=== PATIENT | male | born 1945 | race Caucasian/White ===

== ENCOUNTER 2018-09-07 10:04 | Outpatient (CLI) | payer MEDICARE, OTHER ==
[~2018-09-07] VITALS: Ht 180.3 cm; Wt 154.2 kg
[2018-09-07 10:33] VITALS: BP 155/73
[2018-09-07 11:21] LABS: BASOPHILS % (AUTO) 0 % (0-10); EOSINOPHILS # (AUTO) 0.1 10^3/uL (0.0-0.3); EOSINOPHILS % (AUTO) 2 % (0-10); HEMATOCRIT 39 % (40-54); LYMPHOCYTES # (AUTO) 1.2 X 10^3 (1.0-4.0); LYMPHOCYTES % (AUTO) 18 % (12-44); MEAN CORPUSCULAR HEMOGLOBIN 29 PG (25-34); MEAN CORPUSCULAR HGB CONC 34 G/DL (32-36); MEAN CORPUSCULAR VOLUME 87 FL (80-99); MEAN PLATELET VOLUME 9.2 FL (7.4-10.4); MONOCYTES # (AUTO) 0.6 X 10^3 (0.0-1.0); MONOCYTES % (AUTO) 9 % (0-12); NEUTROPHILS # (AUTO) 4.8 X 10^3 (1.8-7.8); NEUTROPHILS % (AUTO) 72 % (42-75); PLATELET COUNT 234 10^3/uL (130-400); RED CELL DISTRIBUTION WIDTH 14.9 % (10.0-14.5); WHITE BLOOD COUNT 6.7 10^3/uL (4.3-11.0)
[2018-09-07 11:35] LABS: INR 1.1 (0.8-1.4)
[2018-09-07 11:42] LABS: ALANINE AMINOTRANSFERASE 23 U/L (0-55); ALKALINE PHOSPHATASE 68 U/L (40-136); BILIRUBIN,TOTAL 0.5 MG/DL (0.1-1.0); BUN/CREATININE RATIO 15; CALCIUM 10.1 MG/DL (8.5-10.1); CARBON DIOXIDE 25 MMOL/L (21-32); CHLORIDE 105 MMOL/L (98-107); CREATININE SERUM 1.02 MG/DL (0.60-1.30); GFR ESTIMATED > 60; GLUCOSE 128 MG/DL (70-105); POTASSIUM 3.5 MMOL/L (3.6-5.0); SODIUM 141 MMOL/L (135-145); TOTAL PROTEIN 6.9 GM/DL (6.4-8.2)
[2018-09-07 11:55] LABS: BILIRUBIN,URINE NEGATIVE (NEGATIVE); CLARITY,URINE CLEAR; COLOR,URINE AMBER; GLUCOSE, URINE (UA) NEGATIVE (NEGATIVE); KETONES,URINE NEGATIVE (NEGATIVE); LEUKOCYTE ESTERASE ,URINE 1+ (NEGATIVE); NITRITE,URINE NEGATIVE (NEGATIVE); PH,URINE 6 (5-9); PROTEIN,URINE 2+ (NEGATIVE); UROBILINOGEN,URINE NORMAL (NORMAL)
--- NOTE | 2018-09-07 11:56 | Diagnostic Imaging Report ---
INDICATION: Preop for left knee arthroplasty. Time of exam 11:17 a.m. COMPARISON: No prior studies are available for comparison. FINDINGS: The heart size is normal. The pulmonary vascularity is unremarkable. The lungs are clear. No infiltrate, effusion or pneumothorax is detected. IMPRESSION: No acute cardiopulmonary process is detected. Dictated by: Dictated on workstation # [id number]
[2018-09-07 12:05] LABS: BACTERIA,URINE TRACE /HPF; CALCIUM OXALATE CRYSTALS,UR RARE /LPF; RBC,URINE 25-50 /HPF
[2018-09-07 12:18] LABS: ERYTHROCYTE SEDIMENTATION RATE 32 MM/HR (0-30)
[2018-09-07] MEDS ORDERED: LEVO50TA6 PO (14:43)
[2018-09-07] MEDS ORDERED: OMG1KC PO (14:43)
[2018-09-07] MEDS ORDERED: LOSA1TAB23 PO (14:43)
[2018-09-07] MEDS ORDERED: ASPI-983 PO (14:43)
[2018-09-07] MEDS ORDERED: OXYC-471 PO (14:43)
[2018-09-07] MEDS ORDERED: MULT-166 PO (14:43)
[2018-09-07] MEDS ORDERED: TRIA15CR TP (14:43)
[2018-09-07] MEDS ORDERED: TIOT18CA2 IH (14:43)
[2018-09-07] MEDS ORDERED: MENT71OI TP (14:43)
[2018-09-07] MEDS ORDERED: UBID100C17 PO (14:43)
[2018-09-07] MEDS ORDERED: TAMS0.4C98 PO (14:43)
[2018-09-07] MEDS ORDERED: NITR0.4T39 SL (14:43)
[2018-09-07] MEDS ORDERED: FLUT1DIS26 INH (14:43)
[2018-09-07] MEDS ORDERED: MONT10TA24 PO (14:43)
[2018-09-07] MEDS ORDERED: RT-ALBUINH INH (14:43)
[2018-09-07] MEDS ORDERED: CHOL400C9 PO (14:43)
[2018-09-07] MEDS ORDERED: DILT180C82 PO (14:43)
[2018-09-07] MEDS ORDERED: FURO20TA4 PO (14:43)
[2018-09-08] MEDS ORDERED: RT-ALBUINH IH (14:15)
[2018-09-08] MEDS ORDERED: UBID200C16 PO (14:15)
== END 2018-09-07 11:30 | disposition home or self-care (01) ==
LOC: PREOP 10:04
PROVIDERS: ATTEND Orthopaedic Surgery
DX: Z01.811 Encounter for preprocedural respiratory examination (principal); Z01.812 Encounter for preprocedural laboratory examination; Z11.2 Encounter for screening for other bacterial diseases; M17.12 Unilateral primary osteoarthritis, left knee; R53.83 Other fatigue; R82.90 Unspecified abnormal findings in urine
CPT/HCPCS: 36415; 71046; 80053; 81000; 85025; 85610; 85652; 86850; 86900; 86901; 87081; 87088

== ENCOUNTER 2018-09-14 06:05 | Inpatient (IN) | payer MEDICARE, OTHER ==
--- NOTE | 2018-09-08 14:49 | NUR ---
NURSE ENTERED MEDS IN PREOP, I CALLED [facility] AND GOT A LIST OF RECENTLY FILLED MEDICATIONS TO COMPARE. [facility] FILLED: 08-23-18 DILTIAZEM ER 180MG 2 DAILY #180 08-10-18 MONTELUKAST 10MG DAILY #60 08-02-18 TAMSULOSIN 0.4MG HS #90 08-02-18 LISINOPRIL HCTZ 20-12.5MG 2 DAILY #180 (NO LONGER TAKING, CHANGED TO LOSARTAN HCT) 07-20-18 FUROSEMIDE 20MG DAILY PRN #90 07-15-18 LEVOTHYROXINE 50MCG DAILY #90 06-24-18 TRIAMCINOLONE CREAM 0.5% AAA TID PRN 06-20-18 ADVAIR 250-50 BID #3 11-07-17 SPIRIVA HANDIHALER #3 DAILY (STATES HE SOMETIMES GETS SAMPLES) [facility] FILLED: 08-16-18 PROAIR INHALER PRN 08-16-18 LOSARTAN HCTZ 100-25 DAILY #30 OTC MEDS REPORTED: ASPIRIN 81MG DAILY VITAMIN D 400 2 DAILY CALMOSEPTINE PRN MTV DAILY FISH OIL 4 DAILY CO Q 10 200MG DAILY ALSO REPORTED WAS NITROGLYCERIN PRN.
--- NOTE | 2018-09-09 04:30 | HISTORY AND PHYSICAL ---
DATE OF SERVICE: 09/14/2018 ADMISSION HISTORY AND PHYSICAL DATE OF SURGERY: 09/14/2018 DATE OF ADMISSION: 09/14/2018 for left total knee arthroplasty. The patient will require regular inpatient admissions due to gait abnormalities, weakness, pain management issues and comorbidities. HISTORY OF PRESENT ILLNESS: The patient is a 73-year-old gentleman with progressively worsening left knee pain. He has known osteoarthritis of his knee. with injections with steroid and viscosupplementation, but reports progressive worsening pain. Due to functional impairment and failure to improve with conservative measures, the patient elected to proceed with surgical intervention. REVIEW OF SYSTEMS: No chest pain, no shortness of breath. No dysuria. Radiographs reveal severe medial and patellofemoral arthrosis. PAST MEDICAL HISTORY: Significant for fatigue, dizziness, osteoarthritis, venous insufficiency, cellulitis, back pain, morbid obesity and COPD, hypothyroidism, reflux. PAST SURGICAL HISTORY: Carpal tunnel release, coronary stent placement, right index finger, right knee arthroscopy, adenoidectomy, tonsillectomy. FAMILY HISTORY: Significant for cardiovascular disease and asthma. PRIMARY CARE PROVIDER: Dr. Disla in [place], [place]. MEDICATIONS: Diltiazem, fish oil, lisinopril, levothyroxine, furosemide, Calmoseptine, Ventolin, multivitamin, Nitrostat, Advair, Spiriva, triamcinolone, aspirin, losartan. ALLERGIES: CRESTOR. SOCIAL HISTORY: The patient drinks beer socially. He is a former smoker with a [id number] history. PHYSICAL EXAMINATION: GENERAL: The patient is well developed, well-nourished, in no acute distress. HEENT: Normocephalic, atraumatic. Pupils are equal, round and reactive to light. Oropharynx is clear. NECK: Supple, no lymphadenopathy. LUNGS: Clear to auscultation bilaterally. HEART: Regular rate and rhythm. ABDOMEN: Soft, nontender, nondistended. EXTREMITIES: The left knee demonstrates varus alignment. Ambulates with an antalgic gait. He has a slight effusion. There is no warmth or erythema. Range of motion is 0/0/100. He is tender along the medial joint lines and pain with Feliciano's. Varus alignment is noted. IMPRESSION: Severe left knee osteoarthritis, unresponsive to conservative measures. PLAN: Left total knee arthroplasty. The risks, benefits, options, ramifications and recovery were discussed at length with the patient. He understands and wishes to proceed. Job ID: [id number] DocumentID: [id number] Dictated Date: 09/05/2018 11:24:07 Rehab Therapist Date: 09/05/2018 12:34:39 Dictated By: SAY WALSH MD
[~2018-09-14] VITALS: Ht 180.3 cm; Wt 152.4 kg
[~2018-09-14 06:05] MED LIST: ASPI-983 PO; CHOL400C9 PO; DILT180C82 PO; FLUT1DIS26 INH; FURO20TA4 PO; LEVO50TA6 PO; LOSA1TAB23 PO; MENT71OI TP; MONT10TA24 PO; MULT-166 PO; NITR0.4T39 SL; OMG1KC PO; OXYC-471 PO; RT-ALBUINH IH; RT-ALBUINH INH; TAMS0.4C98 PO; TIOT18CA2 IH; TRIA15CR TP; UBID100C17 PO; UBID200C16 PO
[2018-09-14] MEDS ORDERED: CEFUROXIME INJECTION 1,500 MG in WATER (STERILE) FOR INJECTION 15 ML IV ONE (06:15)
[2018-09-14 06:27] VITALS: BP 169/87
[2018-09-14] MEDS: LACTATED RINGERS 1,000 ML IV PRN ×2 (06:27→08:37)
[2018-09-14] MEDS ORDERED: CEFUROXIME 1.5 GM (ZINACEF) VIAL ONE (06:35)
[2018-09-14] MEDS ORDERED: WATER (STERILE) FOR INJECTION 20 ML ONE (06:35)
[2018-09-14] MEDS ORDERED: CATHETER FLUSH 10 ML SYR IV PRN (06:45)
[2018-09-14] MEDS ORDERED: ROCURONIUM 10 MG/ML 5 ML SYRINGE IV ONE (06:58)
[2018-09-14] MEDS ORDERED: fentaNYL INJECTION 100 MCG/2 ML AMP ONE ×2 (06:58→08:06)
[2018-09-14] MEDS ORDERED: proPOfol 200 MG/20 ML (DIPRIVAN) VIAL IV ONE (06:58)
[2018-09-14] MEDS ORDERED: ONDANSETRON 4 MG/2 ML (SDV) Z0FRAN ONE (06:58)
[2018-09-14] MEDS ORDERED: LIDOCAINE PF 2% 5 ML (XYLOCAINE) VIAL ONE (06:58)
[2018-09-14] MEDS ORDERED: MIDAZOLAM 2 MG/2 ML (VERSED) VIAL ONE (06:59)
[2018-09-14] MEDS ORDERED: BUPIVACAINE 0.25% 30 ML (SENSORCAINE) VIAL ONE (07:19)
[2018-09-14 07:20] VITALS: BP 169/87
[2018-09-14] MEDS ORDERED: SEVOFLURANE (ULTANE) 15 ML INHAL SOLN ONE ×8 (07:21→09:22)
--- NOTE | 2018-09-14 07:25 | Progress Note-Pre Operative ---
Pre-Operative Progress Note H&P Reviewed The H&P was reviewed, patient examined and no changes noted. Date Seen by Provider: Sep 14, 2018 Time Seen by Provider: 07:15 Date H&P Reviewed: Sep 14, 2018 Time H&P Reviewed: 07:11 Pre-Operative Diagnosis: left knee primary osteoarthritis SAY WALSH MD Sep 14, 2018 07:25
--- NOTE | 2018-09-14 07:26 | Progress Note-Post Operative ---
Post-Operative Progess Note Surgeon (s)/Senior Industrial Engineer (s) Surgeon SAY WALSH MD Senior Industrial Engineer: Ritesh Arshad Pre-Operative Diagnosis left knee primary osteoarthritis Post-Operative Diagnosis left knee primary osteoarthritis Procedure & Operative Findings Date of Procedure 09/14/18 Procedure Performed/Findings left total knee arthroplasty Anesthesia Type GETA Estimated Blood Loss Estimated blood loss (mL): minimal Specimens/Packing Specimens Removed none Packing: none SAY WALSH MD Sep 14, 2018 07:25
[2018-09-14] MEDS ORDERED: OXYC1TAB87 PO (07:27)
--- NOTE | 2018-09-14 07:29 | D/C HH Face to Face Order ---
D/C Face to Face Orders Instructions for Patient Via [facility], Patient Instructions/FollowUp: three weeks Physician to follow Patient: three weeks Discharge Diet for Home: Regular Diet Patient Data-Allergies,Ht & Wt Patient Allergies: Coded Allergies: Yzuronv-Uia-Aul Reductase Inhibitor (Verified Allergy, Unknown, JOINT AND MUSCLE PAIN, 09/07/18) Height (Feet): 5 Height (Inches): 11.00 Weight (Pounds): 336 Weight (Ounces): 0.0 Home Health Need/Face to Face Date of Face to Face: Sep 14, 2018 Clinical Findings: Instability, Muscle weakness, Pain with ambulation, Unsteady gait I have seen Pt [id number]: Yes Discharged To: Home Diagnosis/Conditions: left total knee arthroplasty Patient is Homebound due to: Brigitte fall risk due to instabilty, Muscle weakness , Pain w/ambulation Homebound Status Due to the above stated illness, injury or surgical procedure (medical condition or diagnosis) and associated clinical findings, the patient is homebound because of his/her inability to leave home except with aid of a supportive device and/or person AND leaving the home requires a considerable and taxing effort or is medically contraindicated. Pt req the following assistanc: [facility] Nursing Orders Home Health Services Order: Physical Therapy-Evaluate & Treat DC left knee pilo and apply steri strips 09/28/18 Home Health Infusion Therapy Line Start Date: Sep 14, 2018 Line Start Time: 626 Line Type: Peripheral IV Site Location: Antecubital Therapy Orders Therapy Orders: Physical Therapy, PT to assess for OT Therapy Specific Orders: Eval assistive deivces, Teach enviro modifications/ safety, Gait training, Increase strength/endurance, Provider maintenance therapy , Restore ROM Certify Stmt I certify that this patient is under my care and that I, a nurse practitioner or a physician; a administrative assistant office manager working with me, had a face to face encounter that - meets the physician face to face encounter requirements with this patient as dated. SAY WALSH MD Sep 14, 2018 07:29
[2018-09-14] MEDS ORDERED: diphenhydrAMINE 50 MG/ML INJ (BENADRYL) IVP PRN (07:30)
[2018-09-14] MEDS ORDERED: morphine PCA 100 MG/100 ML BAG IV PRN (07:30)
[2018-09-14] MEDS ORDERED: ONDANSETRON 4 MG/2 ML (SDV) Z0FRAN IVP PRN ×2 (07:30→09:30)
[2018-09-14] MEDS ORDERED: ACETAMINOPHEN 325 MG TABLET PO PRN (07:30)
[2018-09-14] MEDS ORDERED: INTRA-ARTICULAR IU ONE ×5 (07:45)
[2018-09-14] MEDS ORDERED: TRANEXAMIC ACID 100 MG/ML 10 ML INJECTION IV ONE (08:02)
[2018-09-14] MEDS ORDERED: DEXAMETHASONE 10 MG/ML (DECADRON) 1 ML VIAL ONE (08:38)
[2018-09-14] MEDS ORDERED: NEOSTIGMINE 1 MG/ML 5 ML SYRINGE ONE (09:05)
[2018-09-14] MEDS ORDERED: GLYCOPYRROLATE 0.2 MG/ML (ROBINUL) 2 ML VIAL ONE (09:05)
[2018-09-14] MEDS ORDERED: morphine INJ 10 MG/ML 1ML (SYR OR VIAL) IVP ONE (09:30)
[2018-09-14] MEDS ORDERED: HYDROmorphone 2 MG/ML VIAL (DILAUDID) IV ONE (09:30)
[2018-09-14] MEDS ORDERED: PROMETHAZINE INJ 25 MG/ML (PHENERGAN) AMP IVP ONE (09:30)
[2018-09-14] MEDS ORDERED: MEPERIDINE (DEMEROL) INJ 50 MG/ML IVP ONE (09:30)
[2018-09-14] MEDS ORDERED: morphine INJ 10 MG/ML 1ML (SYR OR VIAL) ONE (09:46)
--- NOTE | 2018-09-14 10:25 | NUR ---
REC'D PER BED FROM PAR. SEE ASSESSMENT.
[2018-09-14 10:50] VITALS: BP 109/60
[2018-09-14] MEDS: SENNA W/DOCUSATE (SENOKOT S) TABLET PO SCH ×2 (11:24→20:31)
[2018-09-14] MEDS: NS IV 1000 ML 1,000 ML IV SCH ×3 (11:25→23:56)
[2018-09-14 12:00] VITALS: BP 144/75
--- NOTE | 2018-09-14 12:30 | OPERATIVE REPORT ---
DATE OF SERVICE: 09/14/2018 PREOPERATIVE DIAGNOSIS: Left knee primary osteoarthritis. POSTOPERATIVE DIAGNOSIS: Left knee primary osteoarthritis. PROCEDURE: Left total knee arthroplasty. SURGEON: Kalin Slater MD. LEGAL NURSE CONSULTANT: Ritesh Arshad, who assisted throughout the procedure, helped with positioning and retraction and closing the incision. ANESTHESIA: General endotracheal by Brian Narayanan CRNA. TOURNIQUET TIME: Approximately 70 minutes at 300 mmHg. ESTIMATED BLOOD LOSS: Minimal. DRAINS: None. COMPLICATIONS: None. POSTOPERATIVE PLAN: Routine protocol. The patient was transferred to recovery room in awake and in stable condition. MATERIALS: MicroPort cemented size 6 femur, cemented 6+ tibia with a 10 mm insert and cemented 35 patellar button. STATEMENT OF MEDICAL NECESSITY: The patient is a 73-year-old gentleman with complaints of progressively worsening left knee pain. Radiographs revealed severe medial and patellofemoral arthrosis. He has undergone treatment with injections, anti-inflammatories and rest without relief. Due to functional impairment and failure to improve with conservative measures, the patient elected to proceed with surgical intervention. DESCRIPTION OF PROCEDURE: After risks and benefits of procedure were discussed and questions were answered and informed consent was signed and placed on the chart. The operative site was confirmed in the preoperative holding area initialed by the surgeon. The patient was then transferred to the operating room and after adequate levels of general endotracheal anesthetic were obtained, a timeout was called confirming the operative site. The left lower extremity was prepped and draped in the usual sterile fashion with the leg elevated. The tourniquet was inflated to 300 mmHg. Standard anterior approach was utilized. Hemostasis was obtained with cautery. A medial parapatellar arthrotomy was performed leaving 1 cm cuff on the patella for later reattachment. A portion of the fat pad was resected and subperiosteal release was performed of the proximal medial tibia being careful to stay on the bony surface. The ACL was resected. An intramedullary guide was passed into the femur and the distal cutting block was placed. The distal cut was made. The femur sized to a size 6. The 6 cutting block was placed parallel to the epicondylar axis and cuts were made from posterior to anterior. Subperiosteal release was then carefully performed of the posterior distal femur, being careful to stay on the bony surface. Intramedullary guide was then passed into the tibia. The cutting block was placed. The drop marshal transected the intermalleolar axis and the cut was made. The baseplate was placed and the drop marshal transected the intermalleolar axis was felt to be in excellent position. This was then prepared with a drill and keel punch. The femoral trial was placed and the trochlear cut was made. The patella was then prepared by using the freehand technique and resecting 10 mm off the undersurface. The peg guide was placed and the peg holes were drilled. The trials were inserted. Full extension was easily obtained, 120 degrees of flexion with gravity was easily obtained. There was no anterior/posterior or medial/lateral laxity in flexion or extension. Patella tracked well. The trials were removed. The joint was irrigated with pulse lavage. The periarticular block was placed in the posterior capsule, medial and lateral retinaculum extensor mechanism and subcutaneous tissues. The bone ends were irrigated and dried and the tibial baseplate was cemented into position. Excessive cement was removed. The superior surface was irrigated and dried and the polyethylene insert was placed. The distal femur was irrigated and dried and the femoral prosthesis was cemented into position. Excess cement was removed. The knee was brought into full extension until the cement had cured. The undersurface of the patella was irrigated and dried. The patellar button was cemented in position. Excess cement was removed. The knee was held in full extension until the cement had cured. Once the cement had cured, the knee was taken through range of motion, full extension was easily obtained. The patella tracked well. There was 120 degrees of flexion with gravity easily. There was no anterior/posterior or medial/lateral laxity in flexion or extension. The joint was further irrigated with pulse lavage. The arthrotomy was closed with #2 [place] in huyiwy-gc-yotco interrupted fashion. The knee was flexed. The patella tracked well with no undue tension at the repair site. The subcutaneous tissues were irrigated with pulse lavage using a total of 6 liters throughout the procedure. A 0 Vicryl was used in the deep subcutaneous tissue, 2-0 Vicryl for the superficial subcutaneous tissue, pilo used on the skin. A soft dressing was applied. The tourniquet was deflated. The patient was transferred to the recovery room in awake and stable condition. Job ID: [id number] DocumentID: [id number] Dictated Date: 09/14/2018 09:26:20 [place]erry Master Date: 09/14/2018 12:29:39 Dictated By: KALIN SLATER MD
--- NOTE | 2018-09-14 13:03 | Progress Note-Standard ---
Standard Progress Note Progress Notes/Assess & Plan Date Seen by a Provider: Sep 14, 2018 Time Seen by a Provider: 13:01 Progress/Assessment & Plan post op check No complaints radiographs--HW well positioned without fracture LLE--brisk cap refill. 1 plus DP pulse. Sensation intact throughout. intact DF and PF of toes and ankle s/p LTKA mobilize as able SAY WASLH MD Sep 14, 2018 13:03
--- NOTE | 2018-09-14 14:21 | Physical Therapy Evaluation ---
PT Evaluation-General Medical Diagnosis Admission Date Sep 14, 2018 at 06:05 Medical Diagnosis: left TKA Onset Date: Sep 14, 2018 Therapy Diagnosis Therapy Diagnosis: impaired mobility, strength, endurance, ROM Height/Weight Height (Feet): 5 Height (Inches): 11.00 Weight (Pounds): 336 Weight (Ounces): 0.0 Precautions Precautions/Isolations: Standard Precautions Weight Bear Status Left Lower Extremity: Left Weight Bearing/Tolerated Referral Physician: Ritesh Arshad APRN Reason for Referral: Evaluation/Treatment Medical History Additional Medical History PAST MEDICAL HISTORY: Significant for fatigue, dizziness, osteoarthritis, venous insufficiency, cellulitis, back pain, morbid obesity and COPD, hypothyroidism, reflux. PAST SURGICAL HISTORY: Carpal tunnel release, coronary stent placement, right index finger, right knee arthroscopy, adenoidectomy, tonsillectomy. Reviewed History: Yes Social History Home: Single Level Current Living Status: Spouse Entry Into Home: Stairs With Railing PT Steps Into Home: 3 Prior/Core FIM Prior Level of Function Therapy Code Descriptions/Definitions Functional [place] Measure: 0=Not Assessed/NA 4=Minimal Assistance 1=Total Assistance 5=Supervision or Setup 2=Maximal Assistance 6=Modified [place] 3=Moderate Assistance 7=Complete [place] Therapy Quality Codes: 6 Independent with activity with or without an assistive device 5 Patient requires set up or clean up by helper. Patient completes activity by themselves 4 Supervision or touching assist (CGA). [place] provide cues , steadying assist 3 The helper provides less than half the effort to complete the activity 2 The helper provides more than half the effort to complete the activity 1 Dependent. The helper does all the effort to complete an activity 7 Patient refused to complete or attempt activity 9 The patient did not perform the activity before the current illness or injury 88 Not attempted due to Medical conditions or safety concerns Functional Abilities and Goals: Independent: Patient completed the activities by him/herself, with or without an assistive device, with no assistance from a helper. Needed Some Help: Patient needed partial assistance from another person to complete activities. Dependent: A helper completed the activities for the patient. Unknown: Not Applicable: Bed Mobility: 7 Transfers (B,C,W/C) (FIM): 7 Gait: 7 Stairs: 7 Indoor Mobility (Ambulation): Independent Stairs: Independent Patient states that he was using a SPC occasionally but stopped before surgery. PT Evaluation-Current Subjective Patient in bed pre tx, agrees to PT, has little to no pain at rest. Pt/Family Goals to be independent at home Objective Patient Orientation: Person, Place, Situation Attachments: SCD's, Oxygen, Polar Pack, IV ROM/Strength ROM Lower Extremities left knee extension +5, flexion 70 degrees Strength Lower Extremities NT Neuromuscular (Tone, Coordination, Reflexes) NT Sensory Vision: Wears Glasses Hearing: Functional Sensation Right Lower Extremit: Intact Sensation Left Lower Extremity: Intact Transfers Therapy Code Descriptions/Definitions Functional [place] Measure: 0=Not Assessed/NA 4=Minimal Assistance 1=Total Assistance 5=Supervision or Setup 2=Maximal Assistance 6=Modified [place] 3=Moderate Assistance 7=Complete [place] Transfers (B, C, W/C) (FIM): 4 Scootin Rollin Supine to/from Sit: 4 Sit to/from Stand: 4 Patient needed min assist for supine <-> sit and CGA for sit to stand. No complaints of dizziness. Cues for hand placement and safety. Gait Mode of Locomotion: Walk Anticipated Mode of Locomotion: Walk Gait (FIM): 1 Distance: 4' Gait Level of Assist: 4 Gait Persons Needed: 1 Gait Assistive Device: FWW Comments/Gait Description Patient ambulated a couple of feet forward and then back and then a couple of feet toward the head of the bed. Gait is antalgic, slow, wide ANAHI, decreased weight bearing on the left side. Balance Sitting Static: Normal Sitting Dynamic: Normal Standing Static: Fair Standing Dynamic: Fair Treatment Supine total knee protocol x10 (AP, QS, HS, SAQ, SLR) Assessment/Needs Patient has impaired mobility, strength, endurance, ROM post left TKA. CPM donned and adjusted to patient's leg and set to 50/-2, polar care on, nurse call and phone, in reach, all needs met. Rehab Potential: Fair PT Short Term Goals Short Term Goals Time Frame: Sep 21, 2018 Transfers (B,C,W/C) (FIM): 5 Gait (FIM): 2 Gait Distance Comment: 50' Gait Level of Assist: 5 Gait Assistive Device: FWW PT Plan Problem List Problem List: Activity Tolerance, Functional Strength, Safety, Balance, Gait, Transfer, Bed Mobility, ROM Treatment/Plan Treatment Plan: Continue Plan of Care Treatment Plan: Bed Mobility, Education, Functional Activity Mia, Functional Strength, Gait, Safety, Therapeutic Exercise, Transfers Treatment Duration: Sep 21, 2018 Frequency: 11 times per week Estimated Hrs Per Day: .25 hour per day (15-30') Patient and/or Family Agrees t: Yes Safety Risks/Education Patient Education: Gait Training, Transfer Techniques, Reviewed Use of Ice, Correct Positioning, Safety Issues Teaching Recipient: Patient Teaching Methods: Demonstration, Discussion Response to Teaching: Reinforcement Needed Discharge Recommendations Plan Patient will perform bed mobility and transfer training, balance and endurance training, functional strengthening, stair training, gait training, and education , to improve functional mobility and independence at home. Therapy D/C Recommendations: Home w/ Family Support Time/GCodes Time In: 1340 Time Out: 1410 Total Billed Treatment Time: 30 Total Billed Treatment 1 visit ZOE 15' FA 15' LIZZ JAVIER PT Sep 14, 2018 14:21
--- NOTE | 2018-09-14 15:35 | Diagnostic Imaging Report ---
INDICATION: Postop left knee replacement. AP and lateral views of the left knee are obtained at 09:51 a.m. Left knee prosthesis appears in good alignment. There is no sign of device loosening. There is no unexpected foreign body post surgery. IMPRESSION: Well-aligned left knee prosthesis with no unexpected foreign body. Dictated by: Dictated on workstation # [id number]
[2018-09-14] MEDS: CEFUROXIME INJECTION 750 MG in WATER (STERILE) FOR INJECTION 10 ML IV SCH ×2 (15:39→23:56)
[2018-09-14 16:05] VITALS: BP 145/62
--- NOTE | 2018-09-14 18:18 | NUR ---
NO VOID SINCE OR. BLADDER SCAN DONE. 725 CC. WILL STAND AT BEDSIDE TO SEE IF HE CAN VOID.
--- NOTE | 2018-09-14 18:33 | NUR ---
VOIDED 100CC. MESSAGE TO MILAN GUNDERSON TO SEE IF HE WANTS DRAKE INSERTED AT THIS TIME.
[2018-09-14 20:55] VITALS: BP 154/68
--- NOTE | 2018-09-14 22:15 | NUR ---
PT ONLY ABLE TO VOID 50 CC. BLADDER SCAN 750. PT STRAIGHT CATH. 850ML OF CLEAR YELLOW URINE. PT TOLERATED WELL.
[2018-09-15] VITALS: BP 153/68
[2018-09-15 04:00] VITALS: BP 146/81
[2018-09-15 05:33] LABS: HEMOGLOBIN 11.4 G/DL (13.3-17.7)
[2018-09-15] MEDS: MULTIVIT W/MINERALS TAB (THERAGRAN M) PO SCH (06:07)
[2018-09-15] MEDS: ENOXAPARIN 30 MG/0.3 ML (LOVENOX) SYR SC SCH ×2 (06:07→18:33)
--- NOTE | 2018-09-15 07:58 | Progress Note-Standard ---
Standard Progress Note Progress Notes/Assess & Plan Date Seen by a Provider: Sep 15, 2018 Time Seen by a Provider: 07:57 Progress/Assessment & Plan post op check No complaints radiographs--HW well positioned without fracture LLE--brisk cap refill. 1 plus DP pulse. Sensation intact throughout. intact DF and PF of toes and ankle s/p LTKA mobilize as able Final Diagnosis no complaints Vital Signs Date Time Temp Pulse Resp B/P (MAP) Pulse Ox O2 Delivery O2 Flow Rate FiO2 09/15/18 07:38 95 Room Air 09/15/18 04:00 98.0 84 18 146/81 (102) 95 Room Air 09/15/18 01:45 94 Room Air 09/15/18 00:00 98.0 78 18 153/68 (96) 98 Room Air 09/14/18 22:29 98 Room Air 09/14/18 21:00 20 09/14/18 20:56 Room Air 09/14/18 20:55 99.2 93 20 154/68 (96) 96 Room Air 09/14/18 19:19 94 Room Air 09/14/18 16:05 99.3 86 20 145/62 (89) 97 Nasal Cannula 3.00 09/14/18 12:00 98.6 80 20 144/75 (98) 96 Room Air 09/14/18 11:05 94 Nasal Cannula 3.00 09/14/18 10:50 97.1 64 20 109/60 (76) 95 Room Air 09/14/18 10:25 96 Nasal Cannula 3.00 09/14/18 10:20 14 94 OxyMask 3 09/14/18 10:10 15 96 OxyMask 3 09/14/18 10:00 16 96 OxyMask 6 09/14/18 09:50 14 96 OxyMask 10 09/14/18 09:40 20 96 OxyMask 10 09/14/18 09:30 16 96 OxyMask 10 09/14/18 09:24 20 97 OxyMask 10 I & O 09/15/18 07:00 Intake Total 2775 ml Output Total 1000 ml Balance 1775 ml Laboratory Tests Test 09/15/18 05:15 Range/Units Hemoglobin 11.4 L 13.3-17.7 G/DL Hematocrit 36 L 40-54 % LLE--dressing intact. NVI distally. No calf tenderness s/p LTKA doing well PT/OT SAY WALSH MD Sep 15, 2018 07:58
[2018-09-15 08:00] VITALS: BP 186/73
[2018-09-15] MEDS: SENNA W/DOCUSATE (SENOKOT S) TABLET PO SCH ×2 (08:15→20:12)
[2018-09-15] MEDS: ASPIRIN E.C. 81 MG (ECOTRIN) TAB PO SCH ×2 (08:15→10:32)
[2018-09-15] MEDS: oxyCODONE/APAP 5/325MG (PERCOCET 5) TABLET PO PRN ×4 (09:30→23:13)
--- NOTE | 2018-09-15 10:15 | Physical Therapy Daily Note ---
PT Daily Note-Current Subjective Patient agrees to PT. Pain Numeric Pain Scale: 5-Moderate Pain Location: Left Location Body Site: Knee Pain Description: Acute Mental Status Patient Orientation: Normal For Age Attachments: IV Transfers Therapy Code Descriptions/Definitions Functional [place] Measure: 0=Not Assessed/NA 4=Minimal Assistance 1=Total Assistance 5=Supervision or Setup 2=Maximal Assistance 6=Modified [place] 3=Moderate Assistance 7=Complete [place] Therapy Quality Codes: 6 Independent with activity with or without an assistive device 5 Patient requires set up or clean up by helper. Patient completes activity by themselves 4 Supervision or touching assist (CGA). [place] provide cues , steadying assist 3 The helper provides less than half the effort to complete the activity 2 The helper provides more than half the effort to complete the activity 1 Dependent. The helper does all the effort to complete an activity 7 Patient refused to complete or attempt activity 9 The patient did not perform the activity before the current illness or injury 88 Not attempted due to Medical conditions or safety concerns Transfers (B, C, W/C) (FIM): 6 Scootin Supine to/from Sit: 6 Sit to/from Stand: 6 Bed to/from Chair: 6 Weight Bearing Left Lower Extremity: Left Weight Bearing/Tolerated Gait Training Gait (FIM): 6 Distance (FIM): 3=150 ft Distance: 300' Gait Level of Assist: 6 Gait Assistive Device: FWW reciprocal pattern/slightly antalgic Exercises Supine Ex: Ankle pumps, Quad Set, Heel Slides, Straight leg raise Supine Reps: 15 Seated Therapy Exercises: Long arc quads Seated Reps: 15 Assessment Patient tolerated treatment well and is up in recliner with needs met. PT Short Term Goals Short Term Goals Time Frame: Sep 21, 2018 Transfers (B,C,W/C) (FIM): 5 Gait (FIM): 2 Gait Distance Comment: 50' Gait Level of Assist: 5 Gait Assistive Device: FWW PT Plan Treatment/Plan Treatment Plan: Continue Plan of Care Treatment Plan: Bed Mobility, Education, Functional Activity Mia, Functional Strength, Gait, Safety, Therapeutic Exercise, Transfers Treatment Duration: Sep 21, 2018 Frequency: 11 times per week Estimated Hrs Per Day: .25 hour per day (15-30') Patient and/or Family Agrees t: Yes Time/GCodes Time In: 925 Time Out: 944 Total Billed Treatment Time: 19 Total Billed Treatment 1 visit FA 19 min MARKY,FABI PT Sep 15, 2018 10:15
[2018-09-15 12:00] VITALS: BP 155/68
[2018-09-15] MEDS: NS IV 1000 ML 1,000 ML IV SCH (12:18)
--- NOTE | 2018-09-15 14:18 | Anesthesia-General Post-Op ---
General Patient Condition Mental Status/LOC: Same as Preop Cardiovascular: Satisfactory Nausea/Vomiting: Absent Respiratory: Satisfactory Pain: Controlled Complications: Absent Post Op Complications Complications None Follow Up Care/Instructions Patient Instructions None needed. Anesthesia/Patient Condition Patient Condition Patient is doing well, no complaints, stable vital signs, no apparent adverse anesthesia problems. No complications reported per nursing. JIMENEZ JIMENES CRNA Sep 15, 2018 14:17
--- NOTE | 2018-09-15 14:59 | Physical Therapy Daily Note ---
PT Daily Note-Current Subjective Patient agrees to PT. No c/o Pain Numeric Pain Scale: 5-Moderate Pain Location: Left Location Body Site: Knee Pain Description: Acute Mental Status Patient Orientation: Normal For Age Attachments: IV Transfers Therapy Code Descriptions/Definitions Functional [place] Measure: 0=Not Assessed/NA 4=Minimal Assistance 1=Total Assistance 5=Supervision or Setup 2=Maximal Assistance 6=Modified [place] 3=Moderate Assistance 7=Complete [place] Therapy Quality Codes: 6 Independent with activity with or without an assistive device 5 Patient requires set up or clean up by helper. Patient completes activity by themselves 4 Supervision or touching assist (CGA). [place] provide cues , steadying assist 3 The helper provides less than half the effort to complete the activity 2 The helper provides more than half the effort to complete the activity 1 Dependent. The helper does all the effort to complete an activity 7 Patient refused to complete or attempt activity 9 The patient did not perform the activity before the current illness or injury 88 Not attempted due to Medical conditions or safety concerns Transfers (B, C, W/C) (FIM): 6 Scootin Supine to/from Sit: 6 Sit to/from Stand: 6 Weight Bearing Left Lower Extremity: Left Weight Bearing/Tolerated Gait Training Gait (FIM): 6 Distance (FIM): 3=150 ft Distance: 375' Gait Level of Assist: 6 Gait Assistive Device: FWW reciprocal pattern/slightly antalgic Exercises Supine Ex: Ankle pumps, Quad Set, Heel Slides, Straight leg raise Supine Reps: 15 (AROM left LE) Assessment CPM 0-[address] with polar pack. Patient progressing with treatment plan and will dismiss to home tomorrow. PT Short Term Goals Short Term Goals Time Frame: Sep 21, 2018 Transfers (B,C,W/C) (FIM): 5 Gait (FIM): 2 Gait Distance Comment: 50' Gait Level of Assist: 5 Gait Assistive Device: FWW PT Plan Treatment/Plan Treatment Plan: Continue Plan of Care Treatment Plan: Bed Mobility, Education, Functional Activity Mia, Functional Strength, Gait, Safety, Therapeutic Exercise, Transfers Treatment Duration: Sep 21, 2018 Frequency: 11 times per week Estimated Hrs Per Day: .25 hour per day (15-30') Patient and/or Family Agrees t: Yes Time/GCodes Time In: 1355 Time Out: 1420 Total Billed Treatment Time: 25 Total Billed Treatment 1 visit GT 17 min EX 8 min FABI NEGRO PT Sep 15, 2018 14:58
--- NOTE | 2018-09-15 15:13 | NUR ---
CM/SS responded to consult. Patient will need a Bariatric FWW at discharge and HHC. Patient preference would be for [facility]. Referral sent to [place] and they will look it over and let this copy writer know. When order for FWW in then will use [facility] and have FWW delivered to the patient room.
[2018-09-15] MEDS ORDERED: FUROSEMIDE 20 MG (LASIX) TAB PO PRN (15:15)
--- NOTE | 2018-09-15 15:23 | Occupational Therapy Eval ---
OT Evaluation-General/PLF Medical Diagnosis Admission Date Sep 14, 2018 at 06:05 Medical Diagnosis: left TKA Onset Date: Sep 14, 2018 Therapy Diagnosis Therapy Diagnosis: weakness Height/Weight Height (Feet): 5 Height (Inches): 11.00 Weight (Pounds): 336 Weight (Ounces): 0.0 Precautions Precautions/Isolations: Fall Prevention, Standard Precautions Safety Interventions: None Weight Bear Status Weight Bearing Restriction: Weight Bearing/Tolerated Location Restriction: L LE Left LE WBAT Referral Physician: Ritesh Arshad APRN Referral Reason: Activity Tolerance, Self Care, Evaluation/Treatment, Strengthening/ROM Medical History Pertinent Medical History: OA Reviewed History: Yes Social History Home: Single Level Current Living Status: Spouse Entry Into Home: Stairs With Railing Steps Into Home: 3 ADL-Prior Level of Function Therapy Code Descriptions/Definitions Functional [place] Measure: 0=Not Assessed/NA 4=Minimal Assistance 1=Total Assistance 5=Supervision or Setup 2=Maximal Assistance 6=Modified [place] 3=Moderate Assistance 7=Complete [place] Therapy Quality Codes: 6 Independent with activity with or without an assistive device 5 Patient requires set up or clean up by helper. Patient completes activity by themselves 4 Supervision or touching assist (CGA). [place] provide cues , steadying assist 3 The helper provides less than half the effort to complete the activity 2 The helper provides more than half the effort to complete the activity 1 Dependent. The helper does all the effort to complete an activity 7 Patient refused to complete or attempt activity 9 The patient did not perform the activity before the current illness or injury 88 Not attempted due to Medical conditions or safety concerns Functional Abilities and Goals: Independent: Patient completed the activities by him/herself, with or without an assistive device, with no assistance from a helper. Needed Some Help: Patient needed partial assistance from another person to complete activities. Dependent: A helper completed the activities for the patient. Unknown: Not Applicable: ADL PLOF Comments Pt was Independent in all ADLs & IADLs & walking without walker. Self Care: Independent Functional Cognition: Independent Drive Self: Yes OT Current Status Subjective Pt in bed, alert, oriented, cooperative & agree for therapy. Pain Numeric Pain Scale: 2 Location: Left Location Body Site: Knee Pain Description: Dull Mental Status/Objective Patient Orientation: Person, Place, Time Attachments: IV, Oxygen, Polar Pack, SCD's Current Glasses/Contacts: Yes Hand Dominance: Right Upper Extremity ROM WFL Upper Extremity Coordination Intact Upper Extremity Sensation Intact Upper Extremity Strength MS in BUE 4/5 grossly graded. ADL-Treatment ADL-Current Patient supine to sit in bed with min A , sit to stand from EOB SBA with FW Walker, Pt walk to the toilet with SBA with FWW & gait belt . With the help of grab bar & sink sit down on comode Pt morbid obese, , Pt Independent in toilet hygiene & SBA from comode to stand holding grab bar . Therapy Code Descriptions/Definitions Functional [place] Measure: 0=Not Assessed/NA 4=Minimal Assistance 1=Total Assistance 5=Supervision or Setup 2=Maximal Assistance 6=Modified [place] 3=Moderate Assistance 7=Complete [place] Therapy Quality Codes: 6 Independent with activity with or without an assistive device 5 Patient requires set up or clean up by helper. Patient completes activity by themselves 4 Supervision or touching assist (CGA). [place] provide cues , steadying assist 3 The helper provides less than half the effort to complete the activity 2 The helper provides more than half the effort to complete the activity 1 Dependent. The helper does all the effort to complete an activity 7 Patient refused to complete or attempt activity 9 The patient did not perform the activity before the current illness or injury 88 Not attempted due to Medical conditions or safety concerns Eating (FIM): 6 Grooming (FIM): 6 Bathing (FIM): 0 Upper Body Dressing (FIM): 0 Lower Body Dressing (FIM): 5 Toileting (FIM): 6 Transfers (B, C, W/C) (FIM): 5 Toilet/Commode Transfer (FIM): 5 Tub Transfer (FIM): 0 Shower Transfer (FIM): 0 Education OT Patient Education: Correct positioning Teaching Recipient: Patient Teaching Methods: Demonstration Response to Teaching: Verbalize Understanding OT Short Term Goals Short Term Goals Time Frame: Sep 29, 2018 Transfers (B,C,W/C) (FIM): 5 Additional Short Term Goals: 1-Demonstrate ADL Tasks, 2-Verbalize Understanding , 3-ImproveStrength/Mia 1=Demonstrate adherence to instructed precautions during ADL tasks. 2=Patient will verbalize/demonstrate understanding of assistive devices/ modifications for ADL. 3=Patient will improve strength/tolerance for activity to enable patient to perform ADL's. OT Heat Seal Operator Goals Longterm Goals Time Frame: Oct 13, 2018 Eating (FIM): 7 Grooming(FIM): 7 Bathing(FIM): 6 Bathing Location: L Arm, R Arm, L Upper Leg, R Upper Leg, L Lower Leg ( including foot), R Lower Leg (including foot), Chest, Abdomen, Buttocks, Perineal Area Upper Body Dressing(FIM): 6 Lower Body Dressing(FIM): 6 Toileting(FIM): 6 Transfers (B,C,W/C) (FIM): 6 Toilet/Commode Transfer(FIM): 6 Tub Transfer(FIM): 5 Shower Transfer(FIM): 6 Additional Goals: 1-Demonstrate ADL Tasks, 2-Verbalize Understanding, 3- ImproveStrength/Mia 1=Demonstrate adherence to instructed precautions during ADL tasks. 2=Patient will verbalize/demonstrate understanding of assistive devices/ modifications for ADL. 3=Patient will improve strength/tolerance for activity to enable patient to perform ADL's. OT Education/Plan Problem List/Assessment Assessment: Decreased Activ Tolerance, Decreased Safety Aware, Decreased UE Strength, Dependent Transfers, Impaired Bed Mobility, Impaired Funct Balance, Impaired Self-Care Skills Discharge Recommendations Plan/Recommendations: Continue POC Therapy D/C Recommendations: Home w/ Family Support Equpiment Recommendations-D/C: Extended Shower Sprayer, Healthcare Translator, Sock Aide, [place] Barriers to Progress Morbid obesity. Patient/Family Goals To return home with spouse Independently. Treatment Plan/Plan of Care Treatment,Training & Education: Yes Patient would benefit from OT for education, treatment and training to promote independence in ADL's, mobility, safety and/or upper extremity function for ADL' s. Plan of Care: ADL Retraining, Functional Mobility, UE Funct Exercise/Act, UE Neuromus Re-Ed/Coord Treatment Duration: Oct 13, 2018 Frequency: 5 times per week Estimated Hrs Per Day: .5 hour per day Rehab Potential: Good Time/GCodes Start Time: 08:15 Stop Time: 09:00 Total Time Billed (hr/min): 45 Billed Treatment Time 1, EVM 17 min, ADLs 18 min, FA 10 min. Total 45 minutes. MERVAT GUERRERO OT Sep 15, 2018 15:23
--- NOTE | 2018-09-15 15:23 | Consultation-Hospitalist ---
HPI History of Present Illness: HPI/Chief Complaint Pt is a 73yoCM with a PMH of HTN, hypothyroidism, BPH who was admitted following a TKA for left knee osteoarthritis. I am consulted for medical management. He states that he is doing well and has a "soreness" in the medial aspect of his knee but he would not call it pain per se. He was able to get up and walk out in the [place] today and feels well. He had a little bit of nausea last night but otherwise has not complaints. Discussed with RN who states he has done well for her as well and no complaints/concerns. Source: patient Date Seen 09/15/18 Attending Physician Kalin Slater MD PCP Ethan Disla MD Referring Physician Dr Slater Date of Admission Sep 14, 2018 at 06:05 Home Medications & Allergies Home Medications Reviewed patient Home Medication Reconciliation performed by pharmacy medication reconciliations cathodic protection technician and/or nursing. Patients Allergies have been reviewed. Allergies Allergies Coded Allergies Mxeuhuh-Bhy-Dcb Reductase Inhibitor (Verified Allergy, Unknown, JOINT AND MUSCLE PAIN, 09/07/18) Past Kdwyfhh-Bmpzxj-Szkbvm Hx Past Med/Social Hx: Reviewed Nursing Past Med/Soc Hx Patient Social History Marrital Status: Alcohol Use: Occasionally Uses Recreational Drug Use: No Smoking Status: Never a Smoker Physical Abuse Screen: No Sexual Abuse: No Recent Foreign Travel: No Contact w/other who traveled: No Recent Hopitalizations: No Recent Infectious Disease Expo: No Immunizations Up To Date Date of Pneumonia Vaccine: Mar 21, 2017 Date of Influenza Vaccine: Mar 21, 2018 Seasonal Allergies Seasonal Allergies: Yes Past Medical History Surgeries: Orthopedic Currently Using CPAP: Yes Cardiac: Hypertension Musculoskeletal: Arthritis Endocrine: Hypothyroidsim HEENT: Cataract Psychosocial: Depression Skin/Integumentary: Psoriasis History of Blood Disorders: No Family History Reviewed Nursing Family Hx Alcoholism G8 BROTHER Cardiovascular disease 19 MOTHER Hypertension 19 FATHER 19 MOTHER Myocardial infarction 19 FATHER Review of Systems Constitutional: no symptoms reported EENTM: no symptoms reported Respiratory: no symptoms reported Cardiovascular: no symptoms reported Gastrointestinal: nausea Genitourinary: hesitancy Musculoskeletal: joint pain Skin: no symptoms reported Psychiatric/Neurological: No Symptoms Reported Physical Exam Physical Exam Vital Signs Vital Signs - First Documented 09/14/18 09/14/18 06:27 09:24 Temp 96.6 Pulse 95 Resp 20 B/P (MAP) 169/87 (114) Pulse Ox 95 O2 Delivery Room Air O2 Flow Rate 10 Capillary Refill : Less Than 3 Seconds Height, Weight, BMI Height: 5'11.00" Weight: 336lbs. 0.0oz. 152.732641as; 46.9 BMI Method: General Appearance: No Apparent Distress, Obese Respiratory: Lungs Clear, No Accessory Muscle Use, No Respiratory Distress Cardiovascular: Regular Rate, Rhythm, No Murmur Gastrointestinal: Normal Bowel Sounds, Non Tender, Soft Extremity: No Calf Tenderness, No Pedal Edema Neurologic/Psychiatric: Alert, Oriented x3, Normal Mood/Affect Skin: Normal Color, Warm/Dry Results Results/Procedures Labs Laboratory Tests 09/15/18 05:15 Patient resulted labs reviewed. Assessment/Plan Assessment and Plan Assess & Plan/Chief Complaint osteoarthritis s/p TKA Diagnosis/Problems Diagnosis/Problems (1) Osteoarthritis of left knee Assessment & Plan: s/p TKA Management per primary PT/OT pain control Qualifiers: Osteoarthritis type: primary Qualified Codes: M17.12 - Unilateral primary osteoarthritis, left knee (2) Essential (primary) hypertension Assessment & Plan: Resume home medications (3) Hypothyroidism Assessment & Plan: Resume home medications Qualifiers: Hypothyroidism type: unspecified Qualified Codes: E03.9 - Hypothyroidism, unspecified (4) COPD (chronic obstructive pulmonary disease) Assessment & Plan: Resume home inhalers MAT protocol Qualifiers: COPD type: unspecified COPD Qualified Codes: J44.9 - Chronic obstructive pulmonary disease, unspecified Clinical Quality Measures DVT/VTE Risk/Contraindication: Risk Factor Score Per Nursin RFS Level Per Nursing on Admit: 4+=Very High SHOLA POLLOCK MD Sep 15, 2018 15:23
[2018-09-15 16:00] VITALS: BP 152/84
--- NOTE | 2018-09-15 16:01 | NUR ---
CM/SS [facility] will start with the patient on Wednesday for PT. [facility] has the order for the FWW (bariatric) and will deliver to the patient room on 09/16.
[2018-09-15 20:00] VITALS: BP 178/95
[2018-09-15] MEDS ORDERED: RT-ADVAIR HFA 115/21 MCG PER PUFF IH SCH (20:00)
[2018-09-15] MEDS ORDERED: TAMSULOSIN 0.4 MG (FLOMAX) CAP PO SCH (21:00)
[2018-09-15] MEDS ORDERED: RT-ALBUTEROL/IPRATROPIUM 3 ML (DUONEB) VIAL INH SCH (21:00)
[2018-09-16] VITALS: BP 159/71
[2018-09-16] MEDS: NS IV 1000 ML 1,000 ML IV SCH (01:43)
[2018-09-16 04:00] VITALS: BP 155/87
--- NOTE | 2018-09-16 04:58 | DISCHARGE SUMMARY ---
DATE OF SERVICE: DIAGNOSES: 1. Left knee primary osteoarthritis. 2. Venous insufficiency. 3. Morbid obesity. 4. Chronic obstructive pulmonary disease. 5. Hypothyroidism. 6. Reflux. PROCEDURE: Left total knee arthroplasty. SUMMARY: The patient is a 73-year-old gentleman who was admitted on the day of left total knee arthroplasty, which he underwent without complications. Postoperatively, he did well. At time of discharge, his wound was clean and dry. No calf tenderness. Negative Joy's sign. He cleared physical therapy. He is tolerating his diet well and tolerating pain with oral pain medication. CONDITION AT DISCHARGE: Good. DISCHARGE DIET: Regular. FOLLOWUP: Followup is in three weeks. Home physical therapy has been arranged. ACTIVITY: Weightbearing as tolerated with assistive devices as needed. DISCHARGE MEDICATIONS: Home medications, Percocet and aspirin. Job ID: [id number] DocumentID: [id number] Dictated Date: 09/15/2018 18:33:29 Outreach Nurse Date: 09/16/2018 04:57:49 Dictated By: SAY WALSH MD
[2018-09-16] MEDS: oxyCODONE/APAP 5/325MG (PERCOCET 5) TABLET PO PRN (05:49)
[2018-09-16] MEDS: ENOXAPARIN 30 MG/0.3 ML (LOVENOX) SYR SC SCH (05:49)
[2018-09-16] MEDS: MULTIVIT W/MINERALS TAB (THERAGRAN M) PO SCH (05:49)
[2018-09-16 06:20] LABS: HEMOGLOBIN 11.1 G/DL (13.3-17.7)
--- NOTE | 2018-09-16 07:01 | Progress Note-Standard ---
Standard Progress Note Progress Notes/Assess & Plan Date Seen by a Provider: Sep 16, 2018 Time Seen by a Provider: 07:00 Progress/Assessment & Plan post op check No complaints radiographs--HW well positioned without fracture LLE--brisk cap refill. 1 plus DP pulse. Sensation intact throughout. intact DF and PF of toes and ankle s/p LTKA mobilize as able Final Diagnosis no complaints Vital Signs Date Time Temp Pulse Resp B/P (MAP) Pulse Ox O2 Delivery O2 Flow Rate FiO2 09/16/18 04:00 98.0 82 20 155/87 (109) 97 Room Air 09/16/18 03:10 96 Room Air 09/16/18 00:00 98.0 90 18 159/71 (100) 97 Room Air 09/15/18 20:52 Room Air 09/15/18 20:51 20 09/15/18 20:18 96 Room Air 09/15/18 20:00 98.0 88 22 178/95 (122) 94 Room Air 09/15/18 16:40 86 95 21 09/15/18 16:00 98.6 84 24 152/84 (106) 95 Room Air 09/15/18 12:00 98.1 81 20 155/68 (97) 93 Room Air 09/15/18 11:12 16 09/15/18 08:15 97 Room Air 09/15/18 08:00 98.2 92 22 186/73 (110) 96 Room Air 09/15/18 07:38 95 Room Air I & O 09/16/18 07:00 Intake Total 4670 ml Balance 4670 ml Laboratory Tests Test 09/16/18 06:10 Range/Units Hemoglobin 11.1 L 13.3-17.7 G/DL Hematocrit 35 L 40-54 % LLE--incision clean and dry. No calf tenderness s/p LTKA PT today then DC home SAY WALSH MD Sep 16, 2018 07:01
[2018-09-16] MEDS ORDERED: morphine INJ 4 MG/ML 1 ML (VIAL/SYRINGE) IVP PRN (07:15)
--- NOTE | 2018-09-16 07:25 | NUR ---
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 PER DR WALSH. 85 ML OF MORPHINE SULFATE WASTED WITH SOHAIL CASTRO RN THIS A.M. CONT PULSE OX REMOVED WELL AFTER D/C OF GUN BARREL FINISHER. THIS RN WILL CONT TO MONITOR THIS PATIENT THROUGHOUT THE REMAINDER OF THIS SHIFT.
[2018-09-16 08:00] VITALS: BP 145/65
[2018-09-16] MEDS ORDERED: UMECLIDINIUM BROMIDE (INCRUSE ELLIPTA) 7'S IH SCH (08:00)
[2018-09-16] MEDS ORDERED: HYDROCHLOROTHIAZIDE 25 MG (HCTZ) TAB PO SCH (09:00)
[2018-09-16] MEDS ORDERED: DILTIAZEM 180 MG (CARDIZEM CD) CAP PO SCH (09:00)
[2018-09-16] MEDS ORDERED: LEVOTHYROXINE 50 MCG (LEVOTHROID) TAB PO SCH (09:00)
[2018-09-16] MEDS ORDERED: LOSARTAN 100 MG (COZAAR) TABLET PO SCH (09:00)
[2018-09-16] MEDS ORDERED: MONTELUKAST 10 MG (SINGULAIR) TAB PO SCH (09:00)
[2018-09-16] MEDS: SENNA W/DOCUSATE (SENOKOT S) TABLET PO SCH (09:02)
[2018-09-16] MEDS: ASPIRIN E.C. 81 MG (ECOTRIN) TAB PO SCH (09:02)
--- NOTE | 2018-09-16 09:03 | NUR ---
prior to a.m. b/p medications pulse was 94 and b/p was 145/65
--- NOTE | 2018-09-16 10:19 | Physical Therapy Daily Note ---
PT Daily Note-Current Subjective Patient agrees to PT. Pain Numeric Pain Scale: 3 Location: Left Location Body Site: Knee Pain Description: Acute Mental Status Patient Orientation: Normal For Age Transfers Therapy Code Descriptions/Definitions Functional [place] Measure: 0=Not Assessed/NA 4=Minimal Assistance 1=Total Assistance 5=Supervision or Setup 2=Maximal Assistance 6=Modified [place] 3=Moderate Assistance 7=Complete [place] Therapy Quality Codes: 6 Independent with activity with or without an assistive device 5 Patient requires set up or clean up by helper. Patient completes activity by themselves 4 Supervision or touching assist (CGA). [place] provide cues , steadying assist 3 The helper provides less than half the effort to complete the activity 2 The helper provides more than half the effort to complete the activity 1 Dependent. The helper does all the effort to complete an activity 7 Patient refused to complete or attempt activity 9 The patient did not perform the activity before the current illness or injury 88 Not attempted due to Medical conditions or safety concerns Transfers (B, C, W/C) (FIM): 6 Scootin Supine to/from Sit: 6 Sit to/from Stand: 6 Weight Bearing Left Lower Extremity: Left Weight Bearing/Tolerated Gait Training Gait (FIM): 6 Distance (FIM): 3=150 ft Distance: 300' x 2 Gait Level of Assist: 6 Gait Assistive Device: FWW steady, reciprocal pattern with no deviation Stair Training Stair Training: Handrails/: 2 handrails Stairs (FIM): 2 #of Steps: 4 Stairs: Pattern: Step to Level of Assist: 5 Exercises Supine Ex: Ankle pumps, Quad Set, Heel Slides, Straight leg raise Supine Reps: 15 Seated Therapy Exercises: Long arc quads Seated Reps: 15 Assessment Patient progressing with treatment plan and has written HEP. Patient to dismiss to home on this date. PT Short Term Goals Short Term Goals Time Frame: Sep 21, 2018 Transfers (B,C,W/C) (FIM): 5 Gait (FIM): 2 Gait Distance Comment: 50' Gait Level of Assist: 5 Gait Assistive Device: FWW PT Plan Treatment/Plan Treatment Plan: Discontinue PT, goals met Treatment Plan: Bed Mobility, Education, Functional Activity Mia, Functional Strength, Gait, Safety, Therapeutic Exercise, Transfers Treatment Duration: Sep 21, 2018 Frequency: 11 times per week Estimated Hrs Per Day: .25 hour per day (15-30') Patient and/or Family Agrees t: Yes Time/GCodes Time In: 853 Time Out: 917 Total Billed Treatment Time: 24 Total Billed Treatment 1 visit EX 16 min GT 8 min FABI NEGRO PT Sep 16, 2018 10:19
[2018-09-16 11:10] VITALS: BP 145/65
[2018-09-16] MEDS ORDERED: ENOXAPARIN 40 MG/0.4 ML (LOVENOX) SYR SC SCH (19:30)
== END 2018-09-16 11:10 | disposition home health service (06) | DRG 470 ==
LOC: 4TH 06:05 → SURG 06:06 → 4TH 10:29
PROVIDERS: ADMIT Orthopaedic Surgery; ATTEND Orthopaedic Surgery
PROC: 0SRD0J9 Replacement of Left Knee Joint with Synthetic Substitute, Cemented, Open Approach (ICD-10-PCS; principal; 2018-09-14 07:39)
DX: M17.12 Unilateral primary osteoarthritis, left knee (principal); I10 Essential (primary) hypertension; E66.01 Morbid (severe) obesity due to excess calories; Z68.42 Body mass index [BMI] 45.0-49.9, adult; J44.9 Chronic obstructive pulmonary disease, unspecified; E03.9 Hypothyroidism, unspecified; K21.9 Gastro-esophageal reflux disease without esophagitis; I87.2 Venous insufficiency (chronic) (peripheral); M54.9 Dorsalgia, unspecified; R11.0 Nausea; N40.0 Benign prostatic hyperplasia without lower urinary tract symptoms; J30.2 Other seasonal allergic rhinitis; F32.9 Major depressive disorder, single episode, unspecified; L40.9 Psoriasis, unspecified; Z95.5 Presence of coronary angioplasty implant and graft; Z87.891 Personal history of nicotine dependence
CPT/HCPCS: 36415; 73560; 85014; 85018; 86850; 86900; 86901; 87081; 94640; 94664; 94760

== ENCOUNTER 2018-12-02 11:26 | Outpatient (CLI) | payer MEDICARE, OTHER ==
[~2018-12-02] VITALS: Ht 180.3 cm; Wt 153.9 kg
[~2018-12-02 11:26] MED LIST changes: +OXYC1TAB87 PO
[2018-12-02 11:48] VITALS: BP 155/78
[2018-12-02 12:58] LABS: BILIRUBIN,URINE NEGATIVE (NEGATIVE); CLARITY,URINE SLIGHTLY CLOUDY; COLOR,URINE YELLOW; GLUCOSE, URINE (UA) NEGATIVE (NEGATIVE); KETONES,URINE NEGATIVE (NEGATIVE); LEUKOCYTE ESTERASE ,URINE 3+ (NEGATIVE); NITRITE,URINE NEGATIVE (NEGATIVE); PH,URINE 6 (5-9); PROTEIN,URINE 3+ (NEGATIVE); UROBILINOGEN,URINE NORMAL (NORMAL)
[2018-12-02 13:00] LABS: BASOPHILS % (AUTO) 0 % (0-10); EOSINOPHILS # (AUTO) 0.1 10^3/uL (0.0-0.3); EOSINOPHILS % (AUTO) 2 % (0-10); HEMATOCRIT 40 % (40-54); HEMOGLOBIN 12.8 G/DL (13.3-17.7); LYMPHOCYTES # (AUTO) 1.6 X 10^3 (1.0-4.0); LYMPHOCYTES % (AUTO) 24 % (12-44); MEAN CORPUSCULAR HEMOGLOBIN 27 PG (25-34); MEAN CORPUSCULAR HGB CONC 32 G/DL (32-36); MEAN CORPUSCULAR VOLUME 85 FL (80-99); MEAN PLATELET VOLUME 9.3 FL (7.4-10.4); MONOCYTES # (AUTO) 0.6 X 10^3 (0.0-1.0); MONOCYTES % (AUTO) 9 % (0-12); NEUTROPHILS # (AUTO) 4.4 X 10^3 (1.8-7.8); NEUTROPHILS % (AUTO) 66 % (42-75); PLATELET COUNT 248 10^3/uL (130-400); RED CELL DISTRIBUTION WIDTH 15.7 % (10.0-14.5); WHITE BLOOD COUNT 6.6 10^3/uL (4.3-11.0)
[2018-12-02 13:11] LABS: BACTERIA,URINE FEW /HPF; CALCIUM OXALATE CRYSTALS,UR RARE /LPF; SQUAMOUS EPITHELIAL CELL,UR 0-2 /HPF; WBC,URINE >100 /HPF
[2018-12-02 13:16] LABS: ALANINE AMINOTRANSFERASE 23 U/L (0-55); ALBUMIN 4.1 GM/DL (3.2-4.5); ALKALINE PHOSPHATASE 91 U/L (40-136); BILIRUBIN,TOTAL 0.4 MG/DL (0.1-1.0); BUN/CREATININE RATIO 11; CALCIUM 9.7 MG/DL (8.5-10.1); CARBON DIOXIDE 26 MMOL/L (21-32); CHLORIDE 106 MMOL/L (98-107); CREATININE SERUM 0.88 MG/DL (0.60-1.30); GFR ESTIMATED > 60; GLUCOSE 104 MG/DL (70-105); POTASSIUM 3.8 MMOL/L (3.6-5.0); SODIUM 140 MMOL/L (135-145); TOTAL PROTEIN 6.9 GM/DL (6.4-8.2)
[2018-12-02 13:59] LABS: ERYTHROCYTE SEDIMENTATION RATE 20 MM/HR (0-30)
[2018-12-02] MEDS ORDERED: VITA400C60 PO (15:21)
[2018-12-02] MEDS ORDERED: FLUT1DIS28 IH (15:21)
== END 2018-12-02 13:00 | disposition home or self-care (01) ==
LOC: PREOP 11:26
PROVIDERS: ATTEND Orthopaedic Surgery
DX: Z01.810 Encounter for preprocedural cardiovascular examination (principal); Z01.811 Encounter for preprocedural respiratory examination; Z01.812 Encounter for preprocedural laboratory examination; Z11.2 Encounter for screening for other bacterial diseases; M17.11 Unilateral primary osteoarthritis, right knee; R53.83 Other fatigue; R82.998 Other abnormal findings in urine
CPT/HCPCS: 36415; 80053; 81000; 85025; 85610; 85652; 86850; 86900; 86901; 87081; 87088

== ENCOUNTER 2018-12-14 05:45 | Inpatient (IN) | payer MEDICARE, OTHER ==
--- NOTE | 2018-12-02 15:24 | NUR ---
CALLED [facility] AND [facility] FOR A LIST OF RECENTLY FILLED MEDICATIONS. I WENT OVER THOSE LISTS WITH THE PATIENTS AND HE LISTED HIS OTC MEDS. 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 HE STATES HE DOES TAKE IT DAILY FOR THE MOST PART) [facility] FILLED: 11-21-18 FLOMAX 0.4MG DAILY #90 11-07-18 LOSARTAN HCTZ 100/25 DAILY #30 11-07-18 LIPITOR 40MG DAILY #90 (NO LONGER TAKING, CAUSES SEVERE MUSCLE PAIN) 10-17-18 ADVAIR 100/50 BID 10-04-18 PERCOCET 5-325MG #40 Q4H PRN (NOT CURRENTLY TAKING, THIS WAS AFTER LAST SURGERY) JUL 2018 PROAIR INHALER PRN OTC MEDS: VITAMIN E FISH OIL CO Q 10 MTV VITAMIN D ASPIRIN 81MG HE ALSO STATES HE HAS CALMOSEPTINE OINTMENT, TRIAMCINOLONE OINTMENT AND NITRO ON HAND NEEDED.
--- NOTE | 2018-12-05 11:31 | HISTORY AND PHYSICAL ---
DATE OF SERVICE: ADMISSION HISTORY AND PHYSICAL DATE OF ADMISSION: 12/14/2018. Date of service, surgery will be 12/14/2018 for right total knee arthroplasty. The patient will require regular inpatient admission due to gait abnormalities, weakness, pain management issues and comorbidities. HISTORY OF PRESENT ILLNESS: The patient is a 73-year-old gentleman with longstanding progressively worsening right knee pain. He has undergone treatment with injections in the past with only temporary relief of his symptoms. He has also undergone viscosupplementation treatment. He reports progressively worsening pain and loss of function. Radiographs reveal severe tricompartmental osteoarthritis. Due to functional impairment and failure to improve with conservative measures, the patient has elected to proceed with surgical intervention. REVIEW OF SYSTEMS: No chest pain, no shortness of breath. No dysuria. PAST MEDICAL HISTORY: Fatigue, dizziness, osteoarthritis, venous insufficiency, cellulitis, back pain, morbid obesity, COPD, hypothyroidism and reflux. PAST SURGICAL HISTORY: Carpal tunnel release, coronary stent placement, right index finger, right knee arthroscopy, adenoidectomy, tonsillectomy and left total knee arthroplasty. FAMILY HISTORY: Cardiovascular disease and asthma. PRIMARY CARE PROVIDER: Dr. Moreno in [place], [place]. MEDICATIONS: Diltiazem, fish oil, lisinopril, levothyroxine, furosemide, Calmoseptine, Ventolin, multivitamin, Nitrostat, Advair, Spiriva, triamcinolone, aspirin, losartan. ALLERGIES: CRESTOR. SOCIAL HISTORY: The patient drinks beer socially. He is a former smoker with a [id number]-svkf history. PHYSICAL EXAMINATION: GENERAL: The patient is a well-developed, well-nourished, in no acute distress. HEENT: Normocephalic, atraumatic. Pupils are equal, round and reactive to light. Oropharynx is clear. NECK: Supple. No lymphadenopathy. LUNGS: Clear to auscultation bilaterally. HEART: Regular rate and rhythm. ABDOMEN: Soft, nontender, nondistended. EXTREMITIES: The right knee demonstrates varus alignment. Range of motion 0/2/120. He has no varus valgus laxity. Negative anterior and posterior drawer. He ambulates with an antalgic gait. He is tender along the medial joint line and has pain with patellar loading. IMPRESSION: Right knee osteoarthritis, unresponsive to conservative measures. PLAN: Right total knee arthroplasty. The risks, benefits, options and ramifications to recovery were discussed at length with the patient. He understands and wishes to proceed. Job ID: [id number] DocumentID: [id number] Dictated Date: 12/05/2018 11:13:36 Principal Investigator Date: 12/05/2018 11:31:28 Dictated By: SAY WALSH MD
[~2018-12-14] VITALS: Ht 180.3 cm; Wt 153.9 kg
[2018-12-14] VITALS (12 sets, daily range): BP systolic 82–175; BP diastolic 35–81
[~2018-12-14 05:45] MED LIST changes: +FLUT1DIS28 IH; +VITA400C60 PO
--- OUTSIDE RECORDS SUMMARY | 2018-12-14 05:51 | XMS REPORT | Continuity of Care Document ---
Author Organization Unknown Address Unknown Allergies Active Description Code Type Severity Reaction Onset Reported/Identified Relationship to Patient Clinical Status Yes Iddbauz-Vai-Zbp Reductase Inhibitor [id number] Drug Allergy Unknown JOINT AND MUSCL 09/07/2018 Yes Oenlrjf-Krr-Gfc Reductase Inhibitor [id number] Drug Allergy Mild JOINT AND MUSCL 12/02/2018 Medications There is no data. Problems Date Dx Coded Attending Type Code Diagnosis Diagnosed By 09/07/2018 SAY WALSH MD, Ot M17.12 UNILATERAL PRIMARY OSTEOARTHRITIS, LEFT 09/07/2018 SAY WALSH MD Ot R53.83 OTHER FATIGUE 09/07/2018 SAY WALSH MD Ot R82.90 UNSPECIFIED ABNORMAL FINDINGS IN URINE 09/07/2018 SAY WALSH MD Ot Z01.811 ENCOUNTER FOR PREPROCEDURAL RESPIRATORY 09/07/2018 SAY WALSH MD Ot Z01.812 ENCOUNTER FOR PREPROCEDURAL LABORATORY E 09/07/2018 SAY WALSH MD Ot Z11.2 ENCOUNTER FOR SCREENING FOR OTHER BACTER 09/08/2018 SAY WALSH MD Ot M17.12 UNILATERAL PRIMARY OSTEOARTHRITIS, LEFT 09/08/2018 SAY WALSH MD Ot R53.83 OTHER FATIGUE 09/08/2018 SAY WALSH MD Ot R82.90 UNSPECIFIED ABNORMAL FINDINGS IN URINE 09/08/2018 SAY WALSH MD Ot Z01.811 ENCOUNTER FOR PREPROCEDURAL RESPIRATORY 09/08/2018 SAY WALSH MD Ot Z01.812 ENCOUNTER FOR PREPROCEDURAL LABORATORY E 09/08/2018 SAY WALSH MD Ot Z11.2 ENCOUNTER FOR SCREENING FOR OTHER BACTER 09/08/2018 SAY WALSH MD Ot M17.12 UNILATERAL PRIMARY OSTEOARTHRITIS, LEFT 09/08/2018 SAY WALSH MD Ot R53.83 OTHER FATIGUE 09/08/2018 SAY WALSH MD Ot R82.90 UNSPECIFIED ABNORMAL FINDINGS IN URINE 09/08/2018 SAY WALSH MD, Ot Z01.811 ENCOUNTER FOR PREPROCEDURAL RESPIRATORY 09/08/2018 SAY WALSH MD, Ot Z01.812 ENCOUNTER FOR PREPROCEDURAL LABORATORY E 09/08/2018 SAY WALSH MD, Ot Z11.2 ENCOUNTER FOR SCREENING FOR OTHER BACTER 09/16/2018 SAY WALSH MD Ot E03.9 HYPOTHYROIDISM, UNSPECIFIED 09/16/2018 SAY WALSH MD Ot E66.01 MORBID (SEVERE) OBESITY DUE TO EXCESS CA 09/16/2018 SAY WALSH MD, Ot F32.9 MAJOR DEPRESSIVE DISORDER, SINGLE EPISOD 09/16/2018 SAY WALSH MD Ot I10 ESSENTIAL (PRIMARY) HYPERTENSION 09/16/2018 SAY WALSH MD, Ot I87.2 VENOUS INSUFFICIENCY (CHRONIC) (PERIPHER 09/16/2018 SAY WALSH MD Ot J30.2 OTHER SEASONAL ALLERGIC RHINITIS 09/16/2018 SAY WALSH MD, Ot J44.9 CHRONIC OBSTRUCTIVE PULMONARY DISEASE, U 09/16/2018 SAY WALSH MD, Ot K21.9 GASTRO-ESOPHAGEAL REFLUX DISEASE WITHOUT 09/16/2018 SAY WALSH MD Ot L40.9 PSORIASIS, UNSPECIFIED 09/16/2018 SAY WALSH MD, Ot M17.12 UNILATERAL PRIMARY OSTEOARTHRITIS, LEFT 09/16/2018 SAY WALSH MD Ot M54.9 DORSALGIA, UNSPECIFIED 09/16/2018 SAY WALSH MD Ot N40.0 BENIGN PROSTATIC HYPERPLASIA WITHOUT LOW 09/16/2018 SAY WALSH MD Ot R11.0 NAUSEA 09/16/2018 SAY WALSH MD Ot Z68.42 BODY MASS INDEX (BMI) 45.0-49.9, ADULT 09/16/2018 SAY WALSH MD Ot Z87.891 PERSONAL HISTORY OF NICOTINE DEPENDENCE 09/16/2018 SAY WALSH MD Ot Z95.5 PRESENCE OF CORONARY ANGIOPLASTY IMPLANT 12/05/2018 SAY WALSH MD Ot M17.11 UNILATERAL PRIMARY OSTEOARTHRITIS, RIGHT 12/05/2018 SAY WALSH MD Ot R53.83 OTHER FATIGUE 12/05/2018 SAY WALSH MD Ot R82.998 OTHER ABNORMAL FINDINGS IN URINE 12/05/2018 SAY WALSH MD, Ot Z01.810 ENCOUNTER FOR PREPROCEDURAL CARDIOVASCUL 12/05/2018 SAY WALSH MD, Ot Z01.811 ENCOUNTER FOR PREPROCEDURAL RESPIRATORY 12/05/2018 SAY WALSH MD, Ot Z01.812 ENCOUNTER FOR PREPROCEDURAL LABORATORY E 12/05/2018 SAY WALSH MD, Ot Z11.2 ENCOUNTER FOR SCREENING FOR OTHER BACTER Procedures Code Description Performed By Performed On [id number] REPLACE OF L KNEE JT WITH SYNTH SUB, SANJUANITA 09/14/2018 Results Test Result Range Methicillin resistant Staphylococcus aureus (MRSA) screening culture - 09/07/18 10:55 Methicillin resistant Staphylococcus aureus (MRSA) screening culture NEG NRG Complete blood count (CBC) with automated white blood cell (WBC) differential - 09/07/18 11:00 Blood leukocytes automated count (number/volume) 6.7 10*3/uL 4.3-11.0 Blood erythrocytes automated count (number/volume) 4.46 10*6/uL 4.35-5.85 Venous blood hemoglobin measurement (mass/volume) 13.0 g/dL 13.3-17.7 Blood hematocrit (volume fraction) 39 % 40-54 Automated erythrocyte mean corpuscular volume 87 [foz_us] 80-99 Automated erythrocyte mean corpuscular hemoglobin (mass per erythrocyte) 29 pg 25-34 Automated erythrocyte mean corpuscular hemoglobin concentration measurement (mass/volume) 34 g/dL 32-36 Automated erythrocyte distribution width ratio 14.9 % 10.0- 14.5 Automated blood platelet count (count/volume) 234 10*3/uL 130-400 Automated blood platelet mean volume measurement 9.2 [foz_us] 7.4-10.4 Automated blood neutrophils/100 leukocytes 72 % 42-75 Automated blood lymphocytes/100 leukocytes 18 % 12-44 Blood monocytes/100 leukocytes 9 % 0-12 Automated blood eosinophils/100 leukocytes 2 % 0-10 Automated blood basophils/100 leukocytes 0 % 0-10 Blood neutrophils automated count (number/volume) 4.8 10*3 1.8-7.8 Blood lymphocytes automated count (number/volume) 1.2 10*3 1.0-4.0 Blood monocytes automated count (number/volume) 0.6 10*3 0.0- 1.0 Automated eosinophil count 0.1 10*3/uL 0.0-0.3 Automated blood basophil count (count/volume) 0.0 10*3/uL 0.0-0.1 PT panel in platelet poor plasma by coagulation assay - 09/07/18 11:00 Prothrombin time (PT) in platelet poor plasma by coagulation assay 14.0 s 12.2-14.7 INR in platelet poor plasma or blood by coagulation assay 1.1 0.8-1.4 Comprehensive metabolic panel - 09/07/18 11:00 Serum or plasma sodium measurement (moles/volume) 141 mmol/L 135-145 Serum or plasma potassium measurement (moles/volume) 3.5 mmol/L 3.6-5.0 Serum or plasma chloride measurement (moles/volume) 105 mmol/L 98-107 Carbon dioxide 25 mmol/L 21-32 Serum or plasma anion gap determination (moles/volume) 11 mmol/L 5-14 Serum or plasma urea nitrogen measurement (mass/volume) 15 mg/dL 7-18 Serum or plasma creatinine measurement (mass/volume) 1.02 mg/dL 0.60-1.30 Serum or plasma urea nitrogen/creatinine mass ratio 15 NRG Serum or plasma creatinine measurement with calculation of estimated glomerular filtration rate > NRG Serum or plasma glucose measurement (mass/volume) 128 mg/dL 70-105 Serum or plasma calcium measurement (mass/volume) 10.1 mg/dL 8.5-10.1 Serum or plasma total bilirubin measurement (mass/volume) 0.5 mg/dL 0.1-1.0 Serum or plasma alkaline phosphatase measurement (enzymatic activity/volume) 68 U/L 40-136 Serum or plasma aspartate aminotransferase measurement (enzymatic activity/volume) 28 U/L 5-34 Serum or plasma alanine aminotransferase measurement (enzymatic activity/volume) 23 U/L 0-55 Serum or plasma protein measurement (mass/volume) 6.9 g/dL 6.4-8.2 Serum or plasma albumin measurement (mass/volume) 4.0 g/dL 3.2-4.5 CALCIUM CORRECTED 10.1 mg/dL 8.5-10.1 Blood type T Indirect antibody screen panel - 09/07/18 11:00 ABO+Rh group AP NRG Blood group antibody screen NEGATIVE NRG Erythrocyte sedimentation rate by westergren method - 09/07/18 11:00 Erythrocyte sedimentation rate by westergren method 32 mm 0-30 Complete urinalysis with reflex to culture - 09/07/18 11:23 Urine color determination LONNY NRG Urine clarity determination CLEAR NRG Urine pH measurement by test strip 6 5-9 Specific gravity of urine by test strip 1.030 1.016-1.022 Urine protein assay by test strip, semi-quantitative 2+ NEGATIVE Urine glucose detection by automated test strip NEGATIVE NEGATIVE Erythrocytes detection in urine sediment by light microscopy 4+ NEGATIVE Urine ketones detection by automated test strip NEGATIVE NEGATIVE Urine nitrite detection by test strip NEGATIVE NEGATIVE Urine total bilirubin detection by test strip NEGATIVE NEGATIVE Urine urobilinogen measurement by automated test strip (mass/volume) NORMAL NORMAL Urine leukocyte esterase detection by dipstick 1+ NEGATIVE Automated urine sediment erythrocyte count by microscopy (number/high power field) [HPF] NRG Automated urine sediment leukocyte count by microscopy (number/high power field) [HPF] NRG Bacteria detection in urine sediment by light microscopy TRACE NRG Squamous epithelial cells detection in urine sediment by light microscopy 2-5 NRG Crystals detection in urine sediment by light microscopy PRESENT NRG Casts detection in urine sediment by light microscopy NONE NRG Mucus detection in urine sediment by light microscopy NEGATIVE NRG Complete urinalysis with reflex to culture YES NRG Calcium oxalate crystals detection in urine sediment by light microscopy RARE NRG Bacterial urine culture - 09/07/18 11:23 Bacterial urine culture NG NRG Blood type T Indirect antibody screen panel - 09/14/18 06:30 ABO+Rh group AP NRG Transfusion band number [id number] NRG Blood group antibody screen NEGATIVE NRG Methicillin resistant Staphylococcus aureus (MRSA) screening culture - 09/14/18 06:30 Methicillin resistant Staphylococcus aureus (MRSA) screening culture NEG NRG Whole blood hemoglobin and hematocrit panel - 09/15/18 05:15 Venous blood hemoglobin measurement (mass/volume) 11.4 g/dL 13.3-17.7 Blood hematocrit (volume fraction) 36 % 40-54 Whole blood hemoglobin and hematocrit panel - 09/16/18 06:10 Venous blood hemoglobin measurement (mass/volume) 11.1 g/dL 13.3-17.7 Blood hematocrit (volume fraction) 35 % 40-54 Complete blood count (CBC) with automated white blood cell (WBC) differential - 12/02/18 12:25 Blood leukocytes automated count (number/volume) 6.6 10*3/uL 4.3-11.0 Blood erythrocytes automated count (number/volume) 4.68 10*6/uL 4.35-5.85 Venous blood hemoglobin measurement (mass/volume) 12.8 g/dL 13.3-17.7 Blood hematocrit (volume fraction) 40 % 40-54 Automated erythrocyte mean corpuscular volume 85 [foz_us] 80-99 Automated erythrocyte mean corpuscular hemoglobin (mass per erythrocyte) 27 pg 25-34 Automated erythrocyte mean corpuscular hemoglobin concentration measurement (mass/volume) 32 g/dL 32-36 Automated erythrocyte distribution width ratio 15.7 % 10.0- 14.5 Automated blood platelet count (count/volume) 248 10*3/uL 130-400 Automated blood platelet mean volume measurement 9.3 [foz_us] 7.4-10.4 Automated blood neutrophils/100 leukocytes 66 % 42-75 Automated blood lymphocytes/100 leukocytes 24 % 12-44 Blood monocytes/100 leukocytes 9 % 0-12 Automated blood eosinophils/100 leukocytes 2 % 0-10 Automated blood basophils/100 leukocytes 0 % 0-10 Blood neutrophils automated count (number/volume) 4.4 10*3 1.8-7.8 Blood lymphocytes automated count (number/volume) 1.6 10*3 1.0-4.0 Blood monocytes automated count (number/volume) 0.6 10*3 0.0- 1.0 Automated eosinophil count 0.1 10*3/uL 0.0-0.3 Automated blood basophil count (count/volume) 0.0 10*3/uL 0.0-0.1 Complete urinalysis with reflex to culture - 12/02/18 12:25 Urine color determination YELLOW NRG Urine clarity determination SLIGHTLY CLOUDY NRG Urine pH measurement by test strip 6 5-9 Specific gravity of urine by test strip 1.025 1.016-1.022 Urine protein assay by test strip, semi-quantitative 3+ NEGATIVE Urine glucose detection by automated test strip NEGATIVE NEGATIVE Erythrocytes detection in urine sediment by light microscopy 4+ NEGATIVE Urine ketones detection by automated test strip NEGATIVE NEGATIVE Urine nitrite detection by test strip NEGATIVE NEGATIVE Urine total bilirubin detection by test strip NEGATIVE NEGATIVE Urine urobilinogen measurement by automated test strip (mass/volume) NORMAL NORMAL Urine leukocyte esterase detection by dipstick 3+ NEGATIVE Automated urine sediment erythrocyte count by microscopy (number/high power field) [HPF] NRG Automated urine sediment leukocyte count by microscopy (number/high power field) > [HPF] NRG Bacteria detection in urine sediment by light microscopy FEW NRG Squamous epithelial cells detection in urine sediment by light microscopy 0-2 NRG Crystals detection in urine sediment by light microscopy PRESENT NRG Casts detection in urine sediment by light microscopy NONE NRG Mucus detection in urine sediment by light microscopy NEGATIVE NRG Complete urinalysis with reflex to culture YES NRG Calcium oxalate crystals detection in urine sediment by light microscopy RARE NRG PT panel in platelet poor plasma by coagulation assay - 12/02/18 12:25 Prothrombin time (PT) in platelet poor plasma by coagulation assay 14.0 s 12.2-14.7 INR in platelet poor plasma or blood by coagulation assay 1.0 0.8-1.4 Comprehensive metabolic panel - 12/02/18 12:25 Serum or plasma sodium measurement (moles/volume) 140 mmol/L 135-145 Serum or plasma potassium measurement (moles/volume) 3.8 mmol/L 3.6-5.0 Serum or plasma chloride measurement (moles/volume) 106 mmol/L 98-107 Carbon dioxide 26 mmol/L 21-32 Serum or plasma anion gap determination (moles/volume) 8 mmol/L 5-14 Serum or plasma urea nitrogen measurement (mass/volume) 10 mg/dL 7-18 Serum or plasma creatinine measurement (mass/volume) 0.88 mg/dL 0.60-1.30 Serum or plasma urea nitrogen/creatinine mass ratio 11 NRG Serum or plasma creatinine measurement with calculation of estimated glomerular filtration rate > NRG Serum or plasma glucose measurement (mass/volume) 104 mg/dL 70-105 Serum or plasma calcium measurement (mass/volume) 9.7 mg/dL 8.5-10.1 Serum or plasma total bilirubin measurement (mass/volume) 0.4 mg/dL 0.1-1.0 Serum or plasma alkaline phosphatase measurement (enzymatic activity/volume) 91 U/L 40-136 Serum or plasma aspartate aminotransferase measurement (enzymatic activity/volume) 24 U/L 5-34 Serum or plasma alanine aminotransferase measurement (enzymatic activity/volume) 23 U/L 0-55 Serum or plasma protein measurement (mass/volume) 6.9 g/dL 6.4-8.2 Serum or plasma albumin measurement (mass/volume) 4.1 g/dL 3.2-4.5 CALCIUM CORRECTED 9.6 mg/dL 8.5-10.1 Blood type T Indirect antibody screen panel - 12/02/18 12:25 ABO+Rh group AP NRG Blood group antibody screen NEGATIVE NRG Erythrocyte sedimentation rate by westergren method - 12/02/18 12:25 Erythrocyte sedimentation rate by westergren method 20 mm 0-30 Bacterial urine culture - 12/02/18 12:25 Bacterial urine culture NG NRG Methicillin resistant Staphylococcus aureus (MRSA) screening culture - 12/02/18 12:30 Methicillin resistant Staphylococcus aureus (MRSA) screening culture NEG NRG Encounters ACCT No. Visit Date/Time Discharge Status Pt. Type Provider Facility Loc./Unit Complaint [id number] 12/02/2018 11:26:00 12/02/2018 13:00:00 DIS Outpatient SAY WALSH MD [facility] PREOP OSTEOARTHRITIS RIGHT KNEE [id number] 09/14/2018 06:05:00 09/16/2018 11:10:00 DIS Inpatient SAY WLASH MD [facility] 4TH LEFT KNEE OSTEOARTHRITIS [id number] 09/07/2018 10:04:00 09/07/2018 11:30:00 DIS Outpatient SAY WALSH MD [facility] PREOP LEFT KNEE OSTEOARTHRITIS [id number] 12/14/2018 08:00:00 PEN Preadmit SAY WALSH MD OSTEOARTHRITIS RIGHT KNEE
[2018-12-14] MEDS ORDERED: LACTATED RINGERS 1,000 ML IV PRN (06:40)
[2018-12-14] MEDS ORDERED: CEFUROXIME INJECTION 1,500 MG in WATER (STERILE) FOR INJECTION 15 ML IV ONE (06:45)
[2018-12-14] MEDS ORDERED: MIDAZOLAM 2 MG/2 ML (VERSED) VIAL ONE (06:50)
[2018-12-14] MEDS ORDERED: SEVOFLURANE (ULTANE) 15 ML INHAL SOLN ONE ×6 (07:09→08:56)
[2018-12-14] MEDS ORDERED: LIDOCAINE PF 2% 5 ML (XYLOCAINE) VIAL ONE (07:09)
[2018-12-14] MEDS ORDERED: proPOfol 200 MG/20 ML (DIPRIVAN) VIAL IV ONE (07:09)
[2018-12-14] MEDS ORDERED: GLYCOPYRROLATE 0.2 MG/ML (ROBINUL) 2 ML VIAL ONE (07:09)
[2018-12-14] MEDS ORDERED: ONDANSETRON 4 MG/2 ML (SDV) Z0FRAN ONE (07:09)
[2018-12-14] MEDS ORDERED: BUPIVACAINE 0.5% 30 ML (SENSORCAINE) VIAL ONE (07:09)
[2018-12-14] MEDS ORDERED: DEXAMETHASONE 10 MG/ML (DECADRON) 1 ML VIAL ONE (07:09)
[2018-12-14] MEDS ORDERED: fentaNYL INJECTION 100 MCG/2 ML AMP ONE ×2 (07:09→08:56)
[2018-12-14] MEDS ORDERED: NEOSTIGMINE 1 MG/ML 5 ML SYRINGE ONE (07:09)
[2018-12-14] MEDS ORDERED: ROCURONIUM 10 MG/ML 5 ML SYRINGE IV ONE (07:13)
[2018-12-14] MEDS ORDERED: morphine PCA 100 MG/100 ML BAG IV PRN (07:15)
[2018-12-14] MEDS ORDERED: diphenhydrAMINE 50 MG/ML INJ (BENADRYL) IVP PRN (07:15)
[2018-12-14] MEDS ORDERED: ONDANSETRON 4 MG/2 ML (SDV) Z0FRAN IVP PRN ×2 (07:15→09:15)
[2018-12-14] MEDS ORDERED: ACETAMINOPHEN 325 MG TABLET PO PRN (07:15)
--- NOTE | 2018-12-14 07:27 | Progress Note-Pre Operative ---
Pre-Operative Progress Note H&P Reviewed The H&P was reviewed, patient examined and no changes noted. Date Seen by Provider: Dec 14, 2018 Time Seen by Provider: 07: Date H&P Reviewed: Dec 14, 2018 Time H&P Reviewed: : Pre-Operative Diagnosis: right knee primary osteoarthritis SAY WALSH MD Dec 14, 2018 07:27
--- NOTE | 2018-12-14 07:28 | Progress Note-Post Operative ---
Post-Operative Progess Note Surgeon (s)/Para Machine Operator (s) Surgeon SAY WALSH MD Para Machine Operator: Ritesh Arshad Pre-Operative Diagnosis right knee primary osteoarthritis Post-Operative Diagnosis right knee primary osteoarthritis Procedure & Operative Findings Date of Procedure 12/14/18 Procedure Performed/Findings right total knee arthroplasty Anesthesia Type GETA Estimated Blood Loss Estimated blood loss (mL): minimal Specimens/Packing Specimens Removed none Packing: none SAY WALSH MD Dec 14, 2018 07:28
[2018-12-14] MEDS ORDERED: INTRA-ARTICULAR IU ONE ×5 (07:30)
--- NOTE | 2018-12-14 07:30 | D/C HH Face to Face Order ---
D/C Face to Face Orders Instructions for Patient [facility], Patient Instructions/FollowUp: three weeks Physician to follow Patient: three weeks Discharge Diet for Home: Regular Diet Patient Data-Allergies,Ht & Wt Patient Allergies: Coded Allergies: Trrvhrj-Xbo-Wxw Reductase Inhibitor (Verified Allergy, Mild, JOINT AND MUSCLE PAIN, 12/02/18) Height (Feet): 5 Height (Inches): 11.00 Weight (Pounds): 339 Weight (Ounces): 5.0 Home Health Need/Face to Face Date of Face to Face: Dec 14, 2018 Clinical Findings: Instability, Muscle weakness, Pain with ambulation, Unsteady gait I have seen Pt [id number]: Yes Discharged To: Home Diagnosis/Conditions: right total knee arthroplasty Patient is Homebound due to: Brigitte fall risk due to instabilty, Muscle weakness, Pain w/ambulation Homebound Status Due to the above stated illness, injury or surgical procedure (medical condition or diagnosis) and associated clinical findings, the patient is homebound because of his/her inability to leave home except with aid of a supportive device and/or person AND leaving the home requires a considerable and taxing effort or is medically contraindicated. Pt req the following assistanc: [facility] Nursing Orders Home Health Services Order: Physical Therapy-Evaluate & Treat DC right knee pilo and apply steri strips 12/28/18 Home Health Infusion Therapy Line Start Date: Dec 14, 2018 Therapy Orders Therapy Orders: Physical Therapy, PT to assess for OT Therapy Specific Orders: Eval assistive deivces, Teach enviro modifications/safety, Gait training, Increase strength/endurance, Provider maintenance therapy, Restore ROM Certify Stmt I certify that this patient is under my care and that I, a nurse practitioner or a physician; a podiatric assistant working with me, had a face to face encounter that - meets the physician face to face encounter requirements with this patient as dated. SAY WALSH MD Dec 14, 2018 07:30
[2018-12-14] MEDS ORDERED: TRANEXAMIC ACID 100 MG/ML 10 ML INJECTION IV ONE (07:35)
[2018-12-14] MEDS ORDERED: OXYC1TAB87 PO (09:12)
[2018-12-14] MEDS ORDERED: PROMETHAZINE INJ 25 MG/ML (PHENERGAN) AMP IVP ONE (09:15)
[2018-12-14] MEDS ORDERED: MEPERIDINE (DEMEROL) INJ 50 MG/ML IVP ONE (09:15)
[2018-12-14] MEDS ORDERED: fentaNYL INJECTION 100 MCG/2 ML AMP IVP ONE (09:15)
[2018-12-14] MEDS ORDERED: morphine INJ 10 MG/ML 1ML (SYR OR VIAL) IVP ONE (09:15)
[2018-12-14] MEDS ORDERED: HYDROmorphone 2 MG/ML VIAL (DILAUDID) IV ONE (09:15)
--- NOTE | 2018-12-14 10:16 | Diagnostic Imaging Report ---
INDICATION: Right knee pain. FINDINGS: AP and lateral views of the right knee show postop changes from joint arthroplasty. There is pneumarthrosis from the surgery. The prosthesis appears to be secured in normal position. There is no evidence of loosening or acute fracture. IMPRESSION: Good alignment of the right knee following joint arthroplasty. Dictated by: Dictated on workstation # [id number]
[2018-12-14] MEDS: NS IV 1000 ML 1,000 ML IV SCH (11:32)
[2018-12-14] MEDS: oxyCODONE/APAP 5/325MG (PERCOCET 5) TABLET PO PRN (11:38)
[2018-12-14] MEDS: SENNA W/DOCUSATE (SENOKOT S) TABLET PO SCH ×2 (11:42→20:59)
--- NOTE | 2018-12-14 13:04 | Progress Note-Standard ---
Standard Progress Note Progress Notes/Assess & Plan Date Seen by a Provider: Dec 14, 2018 Time Seen by a Provider: 13:03 Progress/Assessment & Plan post op check NO complaints radiographs--Hw well positioned without fracture RLE--dressing intact. Intact DF and PF of toes and ankle. brisk cap refill with equal DP pulse. sensation intact throughout s/p RTKA mobilize as able SAY WALSH MD Dec 14, 2018 13:04
--- NOTE | 2018-12-14 13:40 | OPERATIVE REPORT ---
DATE OF SERVICE: 12/14/2018 PREOPERATIVE DIAGNOSIS: Right knee primary osteoarthritis. POSTOPERATIVE DIAGNOSIS: Right knee primary osteoarthritis. PROCEDURE: Right total knee arthroplasty. SURGEON: Kalin Walsh MD NURSE SPECIAL: Ritesh Arshad, who assisted throughout the procedure, helped with positioning, retraction and closed the incision. ANESTHESIA: General endotracheal by Jj Cano CRNA TOURNIQUET TIME: Approximately, 68 minutes at 300 mmHg. ESTIMATED BLOOD LOSS: Minimal. DRAINS: None. COMPLICATIONS: None. POSTOPERATIVE PLAN: Routine protocol. MATERIALS: MicroPort cemented size 6 femur, cemented size 6+ tibia with a 10 mm insert and cemented size 35 patellar button. STATEMENT OF MEDICAL NECESSITY: The patient is a 73-year-old gentleman with longstanding progressive right knee pain, swelling and activity limitations. Radiographs revealed severe tricompartmental osteoarthritis. He has undergone treatment with injections, anti-inflammatories and rest without relief. Due to functional impairment and failure to improve with conservative measures, the patient elected to proceed with surgical intervention. DESCRIPTION OF PROCEDURE: After risks and benefits of procedure were discussed and questions were answered and informed consent was signed and placed on the chart, the operative site was confirmed in the preoperative holding area and initialed by the surgeon. The patient was transported to the operating room. After adequate levels of general endotracheal anesthetic were obtained, a timeout was called confirming the operative site. The right lower extremity was prepped and draped in the usual sterile fashion with the leg elevated and the knee flexed. Tourniquet was inflated to 300 mmHg. Standard anterior approach was utilized. Hemostasis was obtained with cautery. A medial parapatellar arthrotomy was performed leaving 1 cm cuff on the patella for later reattachment. A portion of the fat pad was resected. A subperiosteal release was performed in the proximal medial tibia being careful to stay on the bony surface. The ACL was resected. The intramedullary guide was passed into the femur and the distal cutting block was placed and distal cut was made. The femur was sized to size 6 and 6 cutting block was placed parallel to the epicondylar axis. The cuts were made from posterior to anterior. A subperiosteal release was then carefully performed on the posterior distal femur, being careful to stay on the bony surface. The intramedullary guide was then passed into the tibia. The drop marshal was placed off of the cutting block and transected the intermalleolar axis. This was then pinned into position and the cut was made. A 6+ baseplate was placed and again the drop marshal transected the intermalleolar axis. This was prepared with a drill and keel punch. The femoral trial was placed and the trochlear cut was made. A 10 mm insert was placed and the patella was prepared by resecting 10 mm off the undersurface. The peg guide was placed and the peg holes were drilled. The trials were inserted. A full extension was easily obtained at 120 degrees of flexion with gravity easily obtained. There was no anterior/posterior or medial/lateral laxity in flexion or extension. The trials were removed. The joint was copiously irrigated with pulse lavage. A periarticular block was placed in the posterior capsule, medial and lateral retinaculum and extensor mechanism and subcutaneous tissues. The tibial surface was irrigated and dried and the tibial prosthesis was cemented into position. Excessive cement was removed. Superior surface was irrigated and dried. The polyethylene insert was placed. The distal femur was irrigated and dried and the femoral prosthesis was cemented into position. Excessive cement was removed. The undersurface of the patella was irrigated and dried. The patellar button was cemented into position and excessive cement was removed. Once the cement had cured, the knee was taken through range of motion with full extension easily obtained under 20 degrees of flexion easily obtained with gravity. There was no anterior/posterior or medial/lateral laxity in flexion or extension. The patella tracked well. Prior to placing the components, the periarticular block was placed in the posterior capsule, medial and lateral retinaculum and extensor mechanism and subcutaneous tissues. The joint was further irrigated with pulse lavage. The arthrotomy was closed with #2 Tevdek in [id number] interrupted fashion. The knee was flexed. The patella tracked well. No undue tension was noted at the repair site. Subcutaneous tissues were irrigated and dried and 0 Vicryl was used to reapproximate the subcutaneous tissue, 2-0 Vicryl for the superficial subcutaneous tissue, pilo used on the skin. A total of 6 liters of pulse lavage was used for irrigation throughout the procedure. A soft dressing was applied. The tourniquet was deflated and the patient was transported to the recovery room awake and in stable condition. Job ID: [id number] DocumentID: [id number] Dictated Date: 12/14/2018 09:11:10 Sub[address] Repair Supervisor Date: 12/14/2018 13:39:56 Dictated By: KALIN WALSH MD
--- NOTE | 2018-12-14 14:11 | Consultation-Hospitalist ---
HPI History of Present Illness: HPI/Chief Complaint CC: Right knee replacement medical management following uncomplicated surgery by Dr. Slater POD# 0 HPI: This is a [address] Disla in [place] in addition to Dr. Dunne Cardiology and Dr. Manuel pulmonology who has a PMH of HTN and MARCOS on CPAP- somewhat compliant who presents after an uncomplicated knee replacement from Dr. Slater. At this current time, Pt is a little bit delayed in responses due to pain medication and he will be maintained on a [employer] pump. I will consult Dr. Osuna since he does see cardiology in [place], and considering he has increased risk factors for respiratory compromise and volume overload I will go ahead and consult cardiology for further evaluation and assessment. At this current time, Pt reports pain is under control while on pain medication and I did review his home medication and pre-op evaluation. Source: family, RN/MD Exam Limitations: no limitations Date Seen 12/14/18 Attending Physician Kalin Slater MD PCP Ethan Disla MD Referring Physician Date of Admission Dec 14, 2018 at 05:45 Home Medications & Allergies Home Medications Reviewed patient Home Medication Reconciliation performed by pharmacy medication reconciliations transmission technician and/or nursing. Patients Allergies have been reviewed. Allergies Allergies Coded Allergies Rznzpgf-Lnv-Smk Reductase Inhibitor (Verified Allergy, Mild, JOINT AND MUSCLE PAIN, 12/02/18) Past Wfdjxov-Rtvcej-Xqwlvu Hx Past Med/Social Hx: Reviewed Nursing Past Med/Soc Hx, Reviewed and Corrections made Patient Social History Marrital Status: Employed/Student: retired Alcohol Use: Denies Use Recreational Drug Use: No Smoking Status: Former Smoker Physical Abuse Screen: No Sexual Abuse: No Recent Foreign Travel: No Contact w/other who traveled: No Recent Hopitalizations: No Recent Infectious Disease Expo: No Immunizations Up To Date Date of Pneumonia Vaccine: Mar 30, 2016 Date of Influenza Vaccine: Mar 21, 2018 Seasonal Allergies Seasonal Allergies: Yes Past Medical History Surgeries: Orthopedic Respiratory: Sleep Apnea Currently Using CPAP: Yes Cardiac: Coronary Artery Disease, High Cholesterol, Hypertension Musculoskeletal: Arthritis Endocrine: Hypothyroidsim HEENT: Cataract Psychosocial: Depression Skin/Integumentary: Psoriasis History of Blood Disorders: No Adverse Reaction to Blood Barr: No (N/A) Family History Alcoholism G8 BROTHER Cardiovascular disease 19 MOTHER Hypertension 19 FATHER 19 MOTHER Myocardial infarction 19 FATHER Review of Systems Constitutional: see HPI, malaise EENTM: no symptoms reported Respiratory: no symptoms reported Cardiovascular: no symptoms reported Gastrointestinal: no symptoms reported Genitourinary: no symptoms reported Musculoskeletal: joint pain Skin: no symptoms reported Psychiatric/Neurological: No Symptoms Reported All Other Systems Reviewed Negative Unless Noted: Yes Physical Exam Physical Exam Vital Signs Vital Signs - First Documented 12/14/18 09:12 O2 Flow Rate 6 Capillary Refill : Less Than 3 Seconds Height, Weight, BMI Height: 5'11.00" Weight: 339lbs. 5.0oz. 153.200960dw; 47.3 BMI Method: General Appearance: No Apparent Distress, WD/WN, Chronically ill, Obese Eyes: Bilateral Eye Normal Inspection, Bilateral Eye PERRL HEENT: PERRL/EOMI, Normal ENT Inspection, Pharynx Normal Neck: Full Range of Motion, Normal Inspection, Non Tender, Supple, Carotid Bruit Respiratory: Chest Non Tender, Lungs Clear, Normal Breath Sounds, No Accessory Muscle Use, No Respiratory Distress, Decreased Breath Sounds Cardiovascular: Regular Rate, Rhythm, No Edema, No Gallop, No JVD, No Murmur, Normal Peripheral Pulses Gastrointestinal: Normal Bowel Sounds, No Organomegaly, No Pulsatile Mass, Non Tender, Soft Back: Normal Inspection, No CVA Tenderness, No Vertebral Tenderness Extremity: Normal Capillary Refill, Normal Inspection, Normal Range of Motion, Non Tender, No Calf Tenderness, No Pedal Edema Neurologic/Psychiatric: Alert, Oriented x3, No Motor/Sensory Deficits, Normal Mood/Affect, Disoriented (subtle) Skin: Normal Color, Warm/Dry Lymphatic: No Adenopathy Results Results/Procedures Labs Patient resulted labs reviewed. Assessment/Plan Assessment and Plan Assess & Plan/Chief Complaint Assessment: s/p right knee replacement POD # 0 MARCOS semi-compliant with CPAP CAD s/p stents in past HTN HLP Obesity Plan: Monitor labs Appreciate Dr Osuna consultation CPAP/O2 Pain control Monitor closely Diagnosis/Problems Diagnosis/Problems (1) CAD (coronary artery disease) Status: Chronic Qualifiers: Coronary Disease-Associated Artery/Lesion type: [place]reafski artery [place] vs. transplanted heart: andreafski heart Associated angina: without angina Qualified Codes: I25.10 - Atherosclerotic heart disease of [place]reafski coronary artery without angina pectoris (2) Presence of stent in coronary artery Status: Chronic (3) Obesity Status: Chronic Qualifiers: Obesity type: due to excess calories Obesity classification: adult class 3 (BMI >= 40) Body mass index: BMI 45.0-49.9 (4) MARCOS on CPAP Status: Chronic (5) Osteoarthritis of right knee Status: Chronic Qualifiers: Osteoarthritis type: primary Qualified Codes: M17.11 - Unilateral primary osteoarthritis, right knee (6) Essential (primary) hypertension Status: Chronic (7) Hypothyroidism Status: Chronic Qualifiers: Hypothyroidism type: acquired Qualified Codes: E03.9 - Hypothyroidism, unspecified (8) COPD (chronic obstructive pulmonary disease) Status: Chronic Qualifiers: COPD type: unspecified COPD Qualified Codes: J44.9 - Chronic obstructive pulmonary disease, unspecified YINA VERA DO Dec 14, 2018 14:11
--- NOTE | 2018-12-14 14:56 | NUR ---
CALLED RT VARUN REGARDING END TIDAL CO2 MONITOR
--- NOTE | 2018-12-14 15:33 | Physical Therapy Evaluation ---
PT Evaluation-General Medical Diagnosis Admission Date Dec 14, 2018 at 05:45 Medical Diagnosis: right TKA Onset Date: Dec 14, 2018 Therapy Diagnosis Therapy Diagnosis: impaired mobility, strength, endurance, ROM Height/Weight Height (Feet): 5 Height (Inches): 11.00 Weight (Pounds): 339 Weight (Ounces): 5.0 Precautions Precautions/Isolations: Fall Prevention, Standard Precautions Referral Physician: Ritesh Arshad Reason for Referral: Evaluation/Treatment Medical History Pertinent Medical History: OA Additional Medical History PAST MEDICAL HISTORY: Fatigue, dizziness, osteoarthritis, venous insufficiency, cellulitis, back pain, morbid obesity, COPD, hypothyroidism and reflux. PAST SURGICAL HISTORY: Carpal tunnel release, coronary stent placement, right index finger, right knee arthroscopy, adenoidectomy, tonsillectomy and left total knee arthroplasty. Reviewed History: Yes Social History Home: Single Level Current Living Status: Spouse Entry Into Home: Stairs With Railing PT Steps Into Home: 4 Prior/Core FIM Prior Level of Function Therapy Code Descriptions/Definitions Functional [place] Measure: 0=Not Assessed/NA 4=Minimal Assistance 1=Total Assistance 5=Supervision or Setup 2=Maximal Assistance 6=Modified [place] 3=Moderate Assistance 7=Complete [place] Therapy Quality Codes: 6 Independent with activity with or without an assistive device 5 Patient requires set up or clean up by helper. Patient completes activity by themselves 4 Supervision or touching assist (CGA). Zahl provide cues , steadying assist 3 The helper provides less than half the effort to complete the activity 2 The helper provides more than half the effort to complete the activity 1 Dependent. The helper does all the effort to complete an activity 7 Patient refused to complete or attempt activity 9 The patient did not perform the activity before the current illness or injury 88 Not attempted due to Medical conditions or safety concerns Functional Abilities and Goals: Independent: Patient completed the activities by him/herself, with or without an assistive device, with no assistance from a helper. Needed Some Help: Patient needed partial assistance from another person to complete activities. Dependent: A helper completed the activities for the patient. Unknown: Not Applicable: Bed Mobility: 7 Transfers (B,C,W/C) (FIM): 7 Gait: 7 Stairs: 7 Indoor Mobility (Ambulation): Independent Stairs: Independent PT Evaluation-Current Subjective Patient in bed pre tx, agrees to PT, has no pain at rest. Pt/Family Goals to be independent at home Objective Patient Orientation: Person, Place, Situation Attachments: Oxygen, IV 3L of O2 nasal canula ROM/Strength ROM Lower Extremities right knee flexion 80 degrees, extension +3 degrees Strength Lower Extremities NT Neuromuscular (Tone, Coordination, Reflexes) NT Sensory Hearing: Functional Sensation Right Lower Extremit: Intact Sensation Left Lower Extremity: Intact Transfers Therapy Code Descriptions/Definitions Functional [place] Measure: 0=Not Assessed/NA 4=Minimal Assistance 1=Total Assistance 5=Supervision or Setup 2=Maximal Assistance 6=Modified [place] 3=Moderate Assistance 7=Complete [place] Transfers (B, C, W/C) (FIM): 4 Scootin Rollin Supine to/from Sit: 4 Sit to/from Stand: 4 bed t/f WC(FIM only if WC use): 4 Min assist for supine to sit and sit to stand, CGA for transfers, cues for hand placement and safety. Gait Mode of Locomotion: Walk Anticipated Mode of Locomotion: Walk Gait (FIM): 1 Distance: 20' Gait Level of Assist: 4 Gait Persons Needed: 1 Gait Assistive Device: FWW Comments/Gait Description Patient can ambulate 20' with a rolling walker with CGA. Gait is antalgic, slow, decreased stance time on the right leg. Balance Sitting Static: Normal Sitting Dynamic: Normal Standing Static: Fair Standing Dynamic: Fair Treatment Total knee protocol ex on the right side x10 (AP, QS, HS, SAQ, SLR). CPM donned and set to patient's leg and set to 60/-2. Assessment/Needs Patient has impaired mobility, strength, endurance, ROM post right TKA. Patient in bed post tx with nurse call, phone, tray, all needs met. Polar care and SCD's on. Rehab Potential: Fair PT Short Term Goals Short Term Goals Time Frame: Dec 21, 2018 Transfers (B,C,W/C) (FIM): 5 Gait (FIM): 2 Gait Distance Comment: 50' Gait Level of Assist: 4 Gait Assistive Device: FWW PT Plan Problem List Problem List: Activity Tolerance, Functional Strength, Safety, Balance, Gait, Transfer, Bed Mobility, ROM Treatment/Plan Treatment Plan: Continue Plan of Care Treatment Plan: Bed Mobility, Education, Functional Activity Mia, Functional Strength, Gait, Safety, Therapeutic Exercise, Transfers Treatment Duration: Dec 21, 2018 Frequency: 11 times per week Estimated Hrs Per Day: .25 hour per day Patient and/or Family Agrees t: Yes Safety Risks/Education Patient Education: Gait Training, Transfer Techniques, Correct Positioning, Safety Issues Teaching Recipient: Patient Teaching Methods: Demonstration, Discussion Response to Teaching: Reinforcement Needed Discharge Recommendations Plan Patient will perform bed mobility and transfer training, balance and endurance training, functional strengthening, stair training, gait training, and education, to improve functional mobility and independence at home. Therapy D/C Recommendations: Home w/ Family Support Time/GCodes Time In: 1424 Time Out: 1452 Total Billed Treatment Time: 28 Total Billed Treatment 1 visit ZOE 15' FA 13' LIZZ JAVIER PT Dec 14, 2018 15:33
[2018-12-14] MEDS: CEFUROXIME INJECTION 750 MG in WATER (STERILE) FOR INJECTION 10 ML IV SCH ×2 (15:40→22:20)
--- NOTE | 2018-12-14 15:53 | NUR ---
IRF Evaluation Order received to evaluate patient for the ARU. Patient underwent R TKA, today. Will continue to follow patient's progress as it relates to evaluation for rehabilitation program. Thank you for this referral. Addendum: 12/15/18 at 1301 by SEPTEMBER Jesenia BARONE SS It appears the patient is ambulating (225ft, FWW) and transferring with supervision. Additionally, the patient intends to return home with his spouse. Based on these findings the patient does not require intensive therapies, at this time.
[2018-12-14] MEDS ORDERED: TRIAMCINOLONE 0.5% CR (KENALOG) 15 GM TUBE TP PRN (20:00)
[2018-12-14] MEDS ORDERED: RT-ALBUTEROL SULF 2.5 MG/3 ML PRE-MIX VIAL IH PRN (20:00)
[2018-12-14] MEDS ORDERED: NITROGLYCERIN 0.4 MG SL TABS BTL 25'S SL PRN (20:00)
[2018-12-14] MEDS ORDERED: MENTHOL/ZINC OXIDE (CALMOSEPTINE) 113 GM TUBE TP PRN (20:00)
--- NOTE | 2018-12-14 20:19 | Consultation-Cardiology ---
HPI-Cardiology Cardiology Consultation: Date of Consultation 12/14/18 Time Seen by a Provider: 19:45 Date of Admission Attending Physician Kalin Slater MD Admitting Physician Ethan Disla MD Consulting Physician FELIX PICKARD MD, MA, FACP, FACC, [facility] [place], [facility] Physician requesting consult: Dr Ferris HPI: Chief Complaint: Reason for consultation: H/o CAD HPI 73 yo man who has undergone R TKR today. He has h/o CAD and follows with Dr Dunne in [place], [place]. He does not report cp. Has chronic exertional shortness of breath. No palp or syncope. Chronic mild intermittent leg swelling Review of Systems-Cardiology Review of Systems Constitutional: malaise; No weight loss Eyes: No vision change Ears/Nose/Throat: No ear discharge, No nasal drainage, No recent hearing loss Respiratory: As described under HPI Cardiovascular: As described under HPI Gastrointestinal: No diarrhea, No nausea, No vomiting Genitourinary: No dysuria, No hematuria, No urine frequency changes Musculoskeletal: back pain (chronic), joint pain (chronic) Skin: No rash, No ulcerations Psychiatric/Neurological: No seizure, No focal weakness, No syncope Hematologic: No bleeding abnormalities All Other Systems Reviewed Negative Unless Noted: Yes CXT-Fdampj-Gzosby Hx Patient Social History Marrital Status: Employed/Student: retired Alcohol Use: Denies Use Recreational Drug Use: No Smoking Status: Former Smoker Recent Foreign Travel: No Recent Infectious Disease Expo: No Physical Abuse Screen: No Sexual Abuse: No Immunizations Up To Date Date of Pneumonia Vaccine: Mar 30, 2016 Date of Influenza Vaccine: Mar 21, 2018 Past Medical History PMH As described under Assessment. Family Medical History Family History: Alcoholism G8 BROTHER Cardiovascular disease 19 MOTHER Hypertension 19 FATHER 19 MOTHER Myocardial infarction 19 FATHER Allergies and Home Medications Allergies Coded Allergies: Xkwxppq-Tac-Uly Reductase Inhibitor (Verified Allergy, Mild, JOINT AND MUSCLE PAIN, 12/02/18) Home Medications Albuterol Sulfate 1 Puff Puff, 2 PUFF IH Q4H PRN for SHORTNESS OF BREATH, (Reported) Aspirin 81 Mg Tablet.dr, 81 MG PO DAILY, (Reported) Cholecalciferol (Vitamin D3) 400 Unit Capsule, 800 UNIT PO DAILY, (Reported) TAKES 2 (400 UNIT) CAPSULES Diltiazem HCl 180 Mg Capsule.er, 180 MG PO BID, (Reported) Fluticasone/Salmeterol 1 Each Blst.w.dev, 1 PUFF IH BID, (Reported) Furosemide 20 Mg Tablet, 20 MG PO DAILY PRN for FLUID RETENTION, (Reported) Levothyroxine Sodium 50 Mcg Tablet, 50 MCG PO 0500, (Reported) Losartan/Hydrochlorothiazide 1 Each Tablet, 1 TAB PO DAILY, (Reported) Menthol/Lanolin/Calamine/Znox 71 Gm Oint, TP TID PRN for RASH, (Reported) Montelukast Sodium 10 Mg Tablet, 10 MG PO HS, (Reported) Multivitamin with Minerals 1 Each Tablet, 1 TAB PO DAILY, (Reported) Nitroglycerin 0.4 Mg Tab.subl, 0.4 MG SL UD PRN for CHEST PAIN, (Reported) [place] 3 Polyunsat Fatty Acids 1,000 Mg Cap, 2,000 MG PO DAILY, (Reported) TAKE 2 (1,000MG) CAPSULES Oxycodone HCl/Acetaminophen 1 Each Tablet, 1 TAB PO Q4H Prescribed by: KALIN SLATER on 12/14/18911 Tamsulosin HCl 0.4 Mg Cap, 0.4 MG PO HS, (Reported) Tiotropium [place] 1 Inh Aerp, 1 CAP IH DAILY, (Reported) Triamcinolone Acetonide 15 Gm Cream..g., TP TID PRN for SKIN, (Reported) Ubidecarenone 200 Mg Capsule, 200 MG PO DAILY, (Reported) Vitamin E Acetate 400 Unit Capsule, 800 UNIT PO DAILY, (Reported) Patient Home Medication List Home Medication List Reviewed: Yes Physical Exam-Cardiology Physical Exam Vital Signs/I&O 12/14/18 12/14/18 12/14/18 12/14/18 09:12 09:20 09:30 09:40 Temp 97.7 Resp 19 18 18 18 Pulse Ox 95 96 96 98 O2 Delivery OxyMask OxyMask OxyMask OxyMask O2 Flow Rate 6 6 6 6 12/14/18 12/14/18 12/14/18 12/14/18 09:50 10:00 10:10 10:15 Resp 18 18 18 Pulse Ox 98 96 94 98 O2 Delivery OxyMask Room Air Nasal Cannula Nasal Cannula O2 Flow Rate 6 2 3.00 12/14/18 12/14/18 12/14/18 12/14/18 10:15 12:00 14:09 15:25 Temp 97.6 96.9 96.9 Pulse 72 Resp 18 20 18 18 B/P (MAP) 103/51 (68) Pulse Ox 95 98 O2 Delivery Nasal Cannula Nasal Cannula O2 Flow Rate 2 3.00 12/14/18 12/14/18 16:00 20:06 Temp 98.3 Pulse 86 Resp 20 B/P (MAP) 147/66 (93) Pulse Ox 98 95 O2 Delivery Nasal Cannula Nasal Cannula O2 Flow Rate 3.00 3.00 Capillary Refill : Less Than 3 Seconds Constitutional: AAO x 3, well-developed, well-nourished HEENT: EOMI, hearing is well preserved; No xanthelasmas are seen Neck: carotid pulses are 2 + bilaterally, with good upstrokes Respiratory: No accessory muscle use; other (good bilat air entry, diminished at the basis) Cardiovascular: regular rate-rhythm, S1 and S2, systolic murmur (soft MONICA at card base) Gastrointestinal: No tender; soft; No guarding, No rebound; audible bowel sounds Extremities: swelling (mild, bilat leg swelling); No clubbing, No cyanosis Neurologic/Psychiatric: oriented x 3, grossly intact, power is 5/5 both on sides Skin: No rash on exposed areas, No ulcerations on exposed areas A/P-Cardiology Assessment/Admission Diagnosis CAD. Pt reports a remote h/o cor stent (Dr Buchanan). No current angina Hypertension Obesity with BMI approx 47 S/p R TKR on 12/14/18 Discussion and Recomendations * Continue his cardiac and hypertensive regimen * Monitor labs * DVT prophylaxis recommended FELIX PICKARD MD FACP FAC CCDS Dec 14, 2018 20:19
[2018-12-14] MEDS: MONTELUKAST 10 MG (SINGULAIR) TAB PO SCH (20:59)
[2018-12-14] MEDS: TAMSULOSIN 0.4 MG (FLOMAX) CAP PO SCH (20:59)
[2018-12-14] MEDS: DILTIAZEM 180 MG (CARDIZEM CD) CAP PO SCH (20:59)
[2018-12-14] MEDS ORDERED: NON-FORMULARY MEDICATION 1 EA EA (Diltiazem HCl (Diltiazem ER) 180 MG) PO SCH (21:00)
[2018-12-14] MEDS ORDERED: NON-FORMULARY MEDICATION 1 EA EA (Fluticasone/Salmeterol (Advair 100-50 Diskus) 1 PUFF) IH SCH (21:00)
[2018-12-14] MEDS: RT-ADVAIR HFA 45/21 MCG PER PUFF IH SCH (21:27)
[2018-12-15] VITALS: BP 152/68
[2018-12-15] MEDS: NS IV 1000 ML 1,000 ML IV SCH ×3 (00:49→12:46)
[2018-12-15 04:00] VITALS: BP 142/62
[2018-12-15] MEDS: MULTIVIT W/MINERALS TAB (THERAGRAN M) PO SCH (06:28)
[2018-12-15] MEDS: LEVOTHYROXINE 50 MCG (LEVOTHROID) TAB PO SCH (06:28)
[2018-12-15 07:24] LABS: BASOPHILS % (AUTO) 0 % (0-10); EOSINOPHILS % (AUTO) 0 % (0-10); HEMATOCRIT 36 % (40-54); HEMOGLOBIN 11.4 G/DL (13.3-17.7); LYMPHOCYTES # (AUTO) 1.1 X 10^3 (1.0-4.0); LYMPHOCYTES % (AUTO) 9 % (12-44); MEAN CORPUSCULAR HEMOGLOBIN 28 PG (25-34); MEAN CORPUSCULAR HGB CONC 32 G/DL (32-36); MEAN CORPUSCULAR VOLUME 86 FL (80-99); MEAN PLATELET VOLUME 9.6 FL (7.4-10.4); MONOCYTES # (AUTO) 0.9 X 10^3 (0.0-1.0); MONOCYTES % (AUTO) 7 % (0-12); NEUTROPHILS # (AUTO) 10.2 X 10^3 (1.8-7.8); NEUTROPHILS % (AUTO) 84 % (42-75); PLATELET COUNT 202 10^3/uL (130-400); WHITE BLOOD COUNT 12.2 10^3/uL (4.3-11.0)
[2018-12-15 07:42] LABS: ALANINE AMINOTRANSFERASE 19 U/L (0-55); ALBUMIN 3.7 GM/DL (3.2-4.5); ALKALINE PHOSPHATASE 80 U/L (40-136); BILIRUBIN,TOTAL 0.2 MG/DL (0.1-1.0); BUN/CREATININE RATIO 17; CALCIUM 9.4 MG/DL (8.5-10.1); CARBON DIOXIDE 21 MMOL/L (21-32); CHLORIDE 104 MMOL/L (98-107); CREATININE SERUM 0.92 MG/DL (0.60-1.30); GFR ESTIMATED > 60; GLUCOSE 134 MG/DL (70-105); POTASSIUM 4.2 MMOL/L (3.6-5.0); SODIUM 137 MMOL/L (135-145); TOTAL PROTEIN 6.2 GM/DL (6.4-8.2)
[2018-12-15] MEDS: RT-ADVAIR HFA 45/21 MCG PER PUFF IH SCH (07:50)
[2018-12-15] MEDS: UMECLIDINIUM BROMIDE (INCRUSE ELLIPTA) 7'S IH SCH (07:51)
--- NOTE | 2018-12-15 08:06 | Progress Note-Standard ---
Standard Progress Note Progress Notes/Assess & Plan Date Seen by a Provider: Dec 15, 2018 Time Seen by a Provider: 08:05 Progress/Assessment & Plan post op check NO complaints radiographs--Hw well positioned without fracture RLE--dressing intact. Intact DF and PF of toes and ankle. brisk cap refill with equal DP pulse. sensation intact throughout s/p RTKA mobilize as able Final Diagnosis no complaints Vital Signs Date Time Temp Pulse Resp B/P (MAP) Pulse Ox O2 Delivery O2 Flow Rate FiO2 12/15/18 07:52 96 Room Air 12/15/18 04:00 98.6 85 20 142/62 (88) 97 Nasal Cannula 3.00 12/15/18 01:39 96 Nasal Cannula 1.00 12/15/18 00:00 98.8 89 20 152/68 (96) 96 Nasal Cannula 3.00 12/14/18 22:52 95 Nasal Cannula 2.00 12/14/18 21:00 98 Nasal Cannula 2.00 12/14/18 20:06 95 Nasal Cannula 3.00 12/14/18 20:00 97.4 94 20 166/61 (96) 98 Nasal Cannula 3.00 12/14/18 16:00 98.3 86 20 147/66 (93) 98 Nasal Cannula 3.00 12/14/18 15:25 96.9 18 12/14/18 14:09 18 12/14/18 12:00 96.9 72 20 103/51 (68) 98 Nasal Cannula 3.00 12/14/18 10:15 97.6 18 95 Nasal Cannula 2 12/14/18 10:15 98 Nasal Cannula 3.00 12/14/18 10:10 18 94 Nasal Cannula 2 12/14/18 10:00 18 96 Room Air 12/14/18 09:50 18 98 OxyMask 6 12/14/18 09:40 18 98 OxyMask 6 12/14/18 09:30 18 96 OxyMask 6 12/14/18 09:20 18 96 OxyMask 6 12/14/18 09:12 97.7 19 95 OxyMask 6 I & O 12/15/18 07:00 Intake Total 2375 ml Balance 2375 ml Laboratory Tests Test 12/15/18 06:44 Range/Units White Blood Count 12.2 H 4.3-11.0 10^3/uL Red Blood Count 4.13 L 4.35-5.85 10^6/uL Hemoglobin 11.4 L 13.3-17.7 G/DL Hematocrit 36 L 40-54 % Mean Corpuscular Volume 86 80-99 FL Mean Corpuscular Hemoglobin 28 25-34 PG Mean Corpuscular Hemoglobin Concent 32 32-36 G/DL Red Cell Distribution Width 15.0 H 10.0-14.5 % Platelet Count 202 130-400 10^3/uL Mean Platelet Volume 9.6 7.4-10.4 FL Neutrophils (%) (Auto) 84 H 42-75 % Lymphocytes (%) (Auto) 9 L 12-44 % Monocytes (%) (Auto) 7 0-12 % Eosinophils (%) (Auto) 0 0-10 % Basophils (%) (Auto) 0 0-10 % Neutrophils # (Auto) 10.2 H 1.8-7.8 X 10^3 Lymphocytes # (Auto) 1.1 1.0-4.0 X 10^3 Monocytes # (Auto) 0.9 0.0-1.0 X 10^3 Eosinophils # (Auto) 0.0 0.0-0.3 10^3/uL Basophils # (Auto) 0.0 0.0-0.1 10^3/uL Sodium Level 137 135-145 MMOL/L Potassium Level 4.2 3.6-5.0 MMOL/L Chloride Level 104 98-107 MMOL/L Carbon Dioxide Level 21 21-32 MMOL/L Anion Gap 12 5-14 MMOL/L Blood Urea Nitrogen 16 7-18 MG/DL Creatinine 0.92 0.60-1.30 MG/DL Estimat Glomerular Filtration Rate > 60 BUN/Creatinine Ratio 17 Glucose Level 134 H 70-105 MG/DL Calcium Level 9.4 8.5-10.1 MG/DL Corrected Calcium 9.6 8.5-10.1 MG/DL Total Bilirubin 0.2 0.1-1.0 MG/DL Aspartate Amino Transf (AST/SGOT) 18 5-34 U/L Alanine Aminotransferase (ALT/SGPT) 19 0-55 U/L Alkaline Phosphatase 80 40-136 U/L Total Protein 6.2 L 6.4-8.2 GM/DL Albumin 3.7 3.2-4.5 GM/DL RLE--dressing reinforced. NVI distally. no calf tenderness s/p RTKA continue PT/OT SAY WALSH MD Dec 15, 2018 08:06
[2018-12-15] MEDS: ENOXAPARIN 40 MG/0.4 ML (LOVENOX) SYR SC SCH ×2 (08:18→19:44)
[2018-12-15] MEDS: SENNA W/DOCUSATE (SENOKOT S) TABLET PO SCH ×2 (08:19→19:46)
[2018-12-15] MEDS: ASPIRIN E.C. 81 MG (ECOTRIN) TAB PO SCH (08:19)
[2018-12-15] MEDS: VITAMIN D3 400 UNITS (CHOLECALCIFEROL) TABLET PO SCH (08:19)
[2018-12-15] MEDS: DILTIAZEM 180 MG (CARDIZEM CD) CAP PO SCH ×2 (08:19→19:44)
[2018-12-15 08:26] VITALS: BP 152/50
--- NOTE | 2018-12-15 08:36 | Progress Note-Hospitalist ---
Subjective HPI/CC On Admission Date Seen by Provider: Dec 15, 2018 Time Seen by Provider: 08:40 CC: Right knee replacement medical management following uncomplicated surgery by Dr. Slater POD# 0 HPI: This is a [address] Disla in [place] in addition to Dr. Dunne Cardiology and Dr. Manuel pulmonology who has a PMH of HTN and MARCOS on CPAP- somewhat compliant who presents after an uncomplicated knee replacement from Dr. Slater. At this current time, Pt is a little bit delayed in responses due to pain medication and he will be maintained on a NURSE ADMINISTRATOR pump. I will consult Dr. Osuna since he does see cardiology in [place], and considering he has increased risk factors for respiratory compromise and volume overload I will go ahead and consult cardiology for further evaluation and assessment. At this current time, Pt reports pain is under control while on pain medication and I did review his home medication and pre-op evaluation. Subjective/Events-last exam Pt had a good night. Overall responding well. Appreciate Dr. Osuna consultation due to the significant history of CAD with stents. Urinating well. Bowels not moving yet. Pain is controlled. Maintain on oxygen. May be an inpatient rehab candidate due to his comorbidities. Review of Systems Musculoskeletal: leg pain Objective Exam Vital Signs Vital Signs Date Time Temp Pulse Resp B/P (MAP) Pulse Ox O2 Delivery O2 Flow Rate FiO2 12/15/18 19:15 98.7 82 20 143/68 (93) 97 Room Air 12/15/18 12:20 0.00 Capillary Refill : Less Than 3 Seconds General Appearance: No Apparent Distress, WD/WN, Chronically ill, Obese HEENT: PERRL/EOMI, Normal ENT Inspection, Pharynx Normal Neck: Full Range of Motion, Normal Inspection, Non Tender, Supple, Carotid Bruit Respiratory: Chest Non Tender, Lungs Clear, Normal Breath Sounds, No Accessory Muscle Use, No Respiratory Distress, Decreased Breath Sounds Cardiovascular: Regular Rate, Rhythm, No Edema, No Gallop, No JVD, No Murmur, Normal Peripheral Pulses Gastrointestinal: Normal Bowel Sounds, No Organomegaly, No Pulsatile Mass, Non Tender, Soft Back: Normal Inspection, No CVA Tenderness, No Vertebral Tenderness Extremity: Normal Capillary Refill, Normal Inspection, Normal Range of Motion (except knee post op), Non Tender, No Calf Tenderness, No Pedal Edema Neurologic/Psychiatric: Alert, Oriented x3, No Motor/Sensory Deficits, Normal Mood/Affect, Disoriented (subtle) Skin: Normal Color, Warm/Dry Lymphatic: No Adenopathy Results/Procedures Lab Laboratory Tests 12/15/18 06:44 Patient resulted labs reviewed. Assessment/Plan Assessment and Plan Assess & Plan/Chief Complaint Assessment: s/p right knee replacement POD # 1 MARCOS semi-compliant with CPAP CAD s/p stents in past HTN HLP Obesity Plan: Monitor labs Appreciate Dr Osuna consultation CPAP/O2 Pain control Monitor closely Diagnosis/Problems Diagnosis/Problems (1) CAD (coronary artery disease) Status: Chronic Qualifiers: Coronary Disease-Associated Artery/Lesion type: [place] artery [place] vs. tr ansplanted heart: [place] heart Associated angina: without angina Qualified Codes: I25.10 - Atherosclerotic heart disease of [place] coronary artery without angina pectoris (2) Presence of stent in coronary artery Status: Chronic (3) Obesity Status: Chronic Qualifiers: Obesity type: due to excess calories Obesity classification: adult class 3 (BMI >= 40) Body mass index: BMI 45.0-49.9 (4) MARCOS on CPAP Status: Chronic (5) Osteoarthritis of right knee Status: Chronic Qualifiers: Osteoarthritis type: primary Qualified Codes: M17.11 - Unilateral primary osteoarthritis, right knee (6) Essential (primary) hypertension Status: Chronic (7) Hypothyroidism Status: Chronic Qualifiers: Hypothyroidism type: acquired Qualified Codes: E03.9 - Hypothyroidism, unspecified (8) COPD (chronic obstructive pulmonary disease) Status: Chronic Qualifiers: COPD type: unspecified COPD Qualified Codes: J44.9 - Chronic obstructive pulmonary disease, unspecified YINA VERA DO Dec 15, 2018 08:36
[2018-12-15] MEDS ORDERED: CHOLECALCIFEROL 800 UNIT PO SCH (09:00)
[2018-12-15] MEDS ORDERED: MULTIVIT W/MINERALS TAB (THERAGRAN M) PO SCH (09:00)
[2018-12-15] MEDS ORDERED: TIOTROPIUM BROMIDE (SPIRIVA) 5'S INHALER IH SCH (09:00)
--- NOTE | 2018-12-15 10:05 | Anesthesia-General Post-Op ---
General Patient Condition Mental Status/LOC: Same as Preop Cardiovascular: Satisfactory Nausea/Vomiting: Absent Respiratory: Satisfactory Pain: Controlled Complications: Absent Post Op Complications Complications None Follow Up Care/Instructions Patient Instructions None needed. Anesthesia/Patient Condition Patient Condition Patient is doing well, no complaints, stable vital signs, no apparent adverse anesthesia problems. No complications reported per nursing. PIPPA PAYNE CRNA Dec 15, 2018 10:05
--- NOTE | 2018-12-15 10:32 | Physical Therapy Daily Note ---
PT Daily Note-Current Subjective Patient agrees to PT. No c/o. Pain Numeric Pain Scale: 4 Location: Right Location Body Site: Knee Pain Description: Acute Mental Status Patient Orientation: Normal For Age Attachments: IV Transfers Therapy Code Descriptions/Definitions Functional [place] Measure: 0=Not Assessed/NA 4=Minimal Assistance 1=Total Assistance 5=Supervision or Setup 2=Maximal Assistance 6=Modified [place] 3=Moderate Assistance 7=Complete [place] Therapy Quality Codes: 6 Independent with activity with or without an assistive device 5 Patient requires set up or clean up by helper. Patient completes activity by themselves 4 Supervision or touching assist (CGA). [place] provide cues , steadying assist 3 The helper provides less than half the effort to complete the activity 2 The helper provides more than half the effort to complete the activity 1 Dependent. The helper does all the effort to complete an activity 7 Patient refused to complete or attempt activity 9 The patient did not perform the activity before the current illness or injury 88 Not attempted due to Medical conditions or safety concerns Transfers (B, C, W/C) (FIM): 5 Scootin Supine to/from Sit: 5 Sit to/from Stand: 5 Weight Bearing Right Lower Extremity: Right Weight Bearing/Tolerated Left Lower Extremity: Left Full Weight Bearing Gait Training Gait (FIM): 5 Distance (FIM): 3=150 ft Distance: 225' Gait Level of Assist: 5 Gait Assistive Device: FWW reciprocal pattern, slightly antalgic Exercises Supine Ex: Ankle pumps, Quad Set, Heel Slides, Straight leg raise Supine Reps: 15 Seated Therapy Exercises: Long arc quads Seated Reps: 15 Assessment Patient is up in recliner with needs met. Patient progressing with treatment plan. PT Short Term Goals Short Term Goals Time Frame: Dec 21, 2018 Transfers (B,C,W/C) (FIM): 5 Gait (FIM): 2 Gait Distance Comment: 50' Gait Level of Assist: 4 Gait Assistive Device: FWW PT Plan Treatment/Plan Treatment Plan: Continue Plan of Care Treatment Plan: Bed Mobility, Education, Functional Activity Mia, Functional Strength, Gait, Safety, Therapeutic Exercise, Transfers Treatment Duration: Dec 21, 2018 Frequency: 11 times per week Estimated Hrs Per Day: .25 hour per day Patient and/or Family Agrees t: Yes Time/GCodes Time In: 815 Time Out: 843 Total Billed Treatment Time: 28 Total Billed Treatment 1 visit EX 15 min GT 13 min FABI NEGRO PT Dec 15, 2018 10:32
--- NOTE | 2018-12-15 11:13 | NUR ---
CM/SS, respond to consult. PLAN: Patient plans home with spouse as before. HHC: Coordinated with patient preferred agency, [facility]. Patient understands that RN will come first for intake and therapy to follow thereafter. DME: Patient has FWW for home use. No other needs identified. There are no outstanding orders that need to be provided to [facility], Dr. Slater has provided all.
[2018-12-15] MEDS: oxyCODONE/APAP 5/325MG (PERCOCET 5) TABLET PO PRN ×4 (12:18→22:53)
[2018-12-15 12:20] VITALS: BP 149/73
--- NOTE | 2018-12-15 13:12 | Occupational Therapy Eval ---
OT Evaluation-General/PLF Medical Diagnosis Admission Date Dec 14, 2018 at 05:45 Medical Diagnosis: right TKA Onset Date: Dec 14, 2018 Therapy Diagnosis Therapy Diagnosis: Weakness Height/Weight Height (Feet): 5 Height (Inches): 11.00 Weight (Pounds): 339 Weight (Ounces): 5.0 Precautions Precautions/Isolations: Fall Prevention, Standard Precautions Safety Interventions: Reorient-PRN Weight Bear Status Weight Bearing Restriction: Weight Bearing/Tolerated Referral Physician: Ritesh Arshad Referral Reason: Activity Tolerance, Self Care, Evaluation/Treatment, Strengthening/ROM Medical History Pertinent Medical History: COPD, OA Additional Medical History Venous insufficiency, cellulites, Reflux, CTR, Coronary stent placement. Current History Pt. had elective knee surgery after failed conservative measures. Reviewed History: Yes Social History Home: Single Level Current Living Status: Spouse Entry Into Home: Stairs With Railing Steps Into Home: 4 ADL-Prior Level of Function Therapy Code Descriptions/Definitions Functional [place] Measure: 0=Not Assessed/NA 4=Minimal Assistance 1=Total Assistance 5=Supervision or Setup 2=Maximal Assistance 6=Modified [place] 3=Moderate Assistance 7=Complete [place] Therapy Quality Codes: 6 Independent with activity with or without an assistive device 5 Patient requires set up or clean up by helper. Patient completes activity by themselves 4 Supervision or touching assist (CGA). [place] provide cues , steadying assist 3 The helper provides less than half the effort to complete the activity 2 The helper provides more than half the effort to complete the activity 1 Dependent. The helper does all the effort to complete an activity 7 Patient refused to complete or attempt activity 9 The patient did not perform the activity before the current illness or injury 88 Not attempted due to Medical conditions or safety concerns Functional Abilities and Goals: Independent: Patient completed the activities by him/herself, with or without an assistive device, with no assistance from a helper. Needed Some Help: Patient needed partial assistance from another person to complete activities. Dependent: A helper completed the activities for the patient. Unknown: Not Applicable: ADL PLOF Comments Pt. reports that he was fully independent with ADL skills. However, when spouse came into room, she reported that she is the one that dons his socks for him. Self Care: Unknown Functional Cognition: Independent DME/Equipment: Tub/Shower DME/Equipment Comments Pt. has raised toilet and walker. States that he has grab bars at tub level. OT Current Status Subjective Pt. reports 4/10 pain in right knee. Using AUTOMATIC TYPEWRITER INSPECTOR. Appearance Pt. in bed. Alert and oriented. Agrees to work with OT. Mental Status/Objective Patient Orientation: Person, Place, Time, Situation Attachments: IV Current Glasses/Contacts: Yes Upper Extremity ROM WFL ADL-Treatment Therapy Code Descriptions/Definitions Functional [place] Measure: 0=Not Assessed/NA 4=Minimal Assistance 1=Total Assistance 5=Supervision or Setup 2=Maximal Assistance 6=Modified [place] 3=Moderate Assistance 7=Complete [place] Therapy Quality Codes: 6 Independent with activity with or without an assistive device 5 Patient requires set up or clean up by helper. Patient completes activity by themselves 4 Supervision or touching assist (CGA). [place] provide cues , steadying assist 3 The helper provides less than half the effort to complete the activity 2 The helper provides more than half the effort to complete the activity 1 Dependent. The helper does all the effort to complete an activity 7 Patient refused to complete or attempt activity 9 The patient did not perform the activity before the current illness or injury 88 Not attempted due to Medical conditions or safety concerns Eating (FIM): 7 (Pt. eating snack when OT came into room.) Transfers (B, C, W/C) (FIM): 4 Pt. agrees to transfer to chair from bed level. Required min assist for supine- sit, and min assist sit-stand. Able to take approximately 4 steps to chair using walker. OT brought in AE for education. Pt. and spouse educated on equipment. Noted that pt.'s right LE bleeding through bandage. Ray it better to get LE elevated at this time. Polar pack applied to right knee and legs elevated to comfort level. Nursing notified of draining bandage. Pt. is educated on sock aide, dressing stick, LH sponge, toilet tongs, and mechanism inspector. States that he has a LH shoe horn at home. Pt. is also educated about possibly removing tub/shower doors, adding a curtain, and using a tub transfer bench. Pt. reports that currently, he has a chair that he places in his tub. Pt. and spouse are educated regarding OT goals for functional independence for return home. Both verbalize understanding. Education OT Patient Education: Correct positioning, Modified ADL techniques, Progress toward Goal/Update tx plan, Purpose of tx/functional activities, Reviewed precautions, Rehab process, Transfer techniques, Use of adapted equipment Teaching Recipient: Patient, Significant Other Teaching Methods: Demonstration, Discussion Response to Teaching: Verbalize Understanding, Return Demonstration OT Short Term Goals Short Term Goals Transfers (B,C,W/C) (FIM): 5 1=Demonstrate adherence to instructed precautions during ADL tasks. 2=Patient will verbalize/demonstrate understanding of assistive devices/modifications for ADL. 3=Patient will improve strength/tolerance for activity to enable patient to perform ADL's. OT Nursing Secretary Goals Nursing Home Goals Time Frame: Dec 22, 2018 Eating (FIM): 7 Grooming(FIM): 6 Bathing(FIM): 5 Upper Body Dressing(FIM): 6 Lower Body Dressing(FIM): 5 Toileting(FIM): 6 Transfers (B,C,W/C) (FIM): 6 Toilet/Commode Transfer(FIM): 6 Shower Transfer(FIM): 5 Additional Goals: 1-Demonstrate ADL Tasks, 2-Verbalize Understanding, 3- ImproveStrength/Mia 1=Demonstrate adherence to instructed precautions during ADL tasks. 2=Patient will verbalize/demonstrate understanding of assistive devices/modif ications for ADL. 3=Patient will improve strength/tolerance for activity to enable patient to perform ADL's. OT Education/Plan Problem List/Assessment Assessment: Decreased Activ Tolerance, Dependent Transfers, Impaired I ADL's, Impaired Self-Care Skills Discharge Recommendations Plan/Recommendations: Continue POC Therapy D/C Recommendations: Home w/ Family Support, Occupational Therapy Home Care Equpiment Recommendations-D/C: Extended Bath Bench, Hip Kit Treatment Plan/Plan of Care Treatment,Training & Education: Yes Patient would benefit from OT for education, treatment and training to promote independence in ADL's, mobility, safety and/or upper extremity function for ADL's. Plan of Care: ADL Retraining, Functional Mobility, UE Funct Exercise/Act Treatment Duration: Dec 22, 2018 Frequency: 5 times per week Estimated Hrs Per Day: .5 hour per day Agreement: Yes Rehab Potential: Good Time/GCodes Start Time: 11:20 Stop Time: 12:15 Total Time Billed (hr/min): 55 Billed Treatment Time 1, EVM x 15minutes, ADL x 40minutes ADAIR FRENCH OT Dec 15, 2018 13:12
--- NOTE | 2018-12-15 14:30 | Physical Therapy Daily Note ---
PT Daily Note-Current Subjective Patient is very agreeable to participate with PT. Pain Numeric Pain Scale: 7 Location: Right Location Body Site: Knee Pain Description: Acute Mental Status Patient Orientation: Normal For Age Attachments: Polar Pack, IV Transfers Therapy Code Descriptions/Definitions Functional [place] Measure: 0=Not Assessed/NA 4=Minimal Assistance 1=Total Assistance 5=Supervision or Setup 2=Maximal Assistance 6=Modified [place] 3=Moderate Assistance 7=Complete [place] Therapy Quality Codes: 6 Independent with activity with or without an assistive device 5 Patient requires set up or clean up by helper. Patient completes activity by themselves 4 Supervision or touching assist (CGA). [place] provide cues , steadying assist 3 The helper provides less than half the effort to complete the activity 2 The helper provides more than half the effort to complete the activity 1 Dependent. The helper does all the effort to complete an activity 7 Patient refused to complete or attempt activity 9 The patient did not perform the activity before the current illness or injury 88 Not attempted due to Medical conditions or safety concerns Transfers (B, C, W/C) (FIM): 5 Scootin Rollin Supine to/from Sit: 5 Sit to/from Stand: 5 Weight Bearing Right Lower Extremity: Right Weight Bearing/Tolerated Left Lower Extremity: Left Full Weight Bearing Gait Training Gait (FIM): 5 Distance (FIM): 3=150 ft Distance: 280' Gait Level of Assist: 5 Gait Assistive Device: FWW reciprocal pattern, steady gait sequence Exercises Supine Ex: Ankle pumps, Quad Set, Heel Slides Supine Reps: 15 Seated Therapy Exercises: Ankle pumps, Long arc quads Seated Reps: 15 Assessment Patient tolerated treatment and is on CPM 0-80 degrees with polar pack in place. PT Short Term Goals Short Term Goals Time Frame: Dec 21, 2018 Transfers (B,C,W/C) (FIM): 5 Gait (FIM): 2 Gait Distance Comment: 50' Gait Level of Assist: 4 Gait Assistive Device: FWW PT Plan Treatment/Plan Treatment Plan: Continue Plan of Care Treatment Plan: Bed Mobility, Education, Functional Activity Mia, Functional Strength, Gait, Safety, Therapeutic Exercise, Transfers Treatment Duration: Dec 21, 2018 Frequency: 11 times per week Estimated Hrs Per Day: .25 hour per day Patient and/or Family Agrees t: Yes Time/GCodes Time In: 1340 Time Out: 1410 Total Billed Treatment Time: 30 Total Billed Treatment 1 visit GT 17 min EX 13 min FABI NEGRO PT Dec 15, 2018 14:30
[2018-12-15 16:00] VITALS: BP 148/71
[2018-12-15 19:15] VITALS: BP 143/68
[2018-12-15] MEDS: TAMSULOSIN 0.4 MG (FLOMAX) CAP PO SCH (19:44)
[2018-12-15] MEDS: MONTELUKAST 10 MG (SINGULAIR) TAB PO SCH (19:44)
--- NOTE | 2018-12-15 20:48 | Progress Note-Cardiology ---
Cardiology SOAP Progress Note Subjective: No cp or palp or syncope or shortness of breath at rest Objective: I&O/Vital Signs 12/15/18 12/15/18 12/15/18 12/15/18 09:22 12:20 16:00 19:15 Temp 97.8 97.8 98.7 Pulse 73 75 82 Resp 21 20 20 B/P (MAP) 149/73 (98) 148/71 (96) 143/68 (93) Pulse Ox 98 97 97 97 O2 Delivery Nasal Cannula Room Air Room Air Room Air O2 Flow Rate 2.00 0.00 12/15/18 00:00 Intake Total 1260 ml Balance 1260 ml Weight (Pounds): 339 Weight (Ounces): 5.0 Weight (Calculated Kilograms): 153.392826 Constitutional: AAO x 3, well-developed, well-nourished Respiratory: No accessory muscle use; other (good bilat air entry, diminished at the basis) Cardiovascular: regular rate-rhythm, S1 and S2, systolic murmur (soft [place]ICA at card base) Gastrointestional: No tender; soft; No guarding, No rebound; audible bowel sounds Extremities: swelling (mild, bilat leg swelling); No clubbing, No cyanosis Neurologic/Psychiatric: oriented x 3, grossly intact, power is 5/5 both on sides Skin: No rash on exposed areas, No ulcerations on exposed areas Results/Procedures: Labs Laboratory Tests 12/15/18 06:44: White Blood Count 12.2H, Red Blood Count 4.13L, Hemoglobin 11.4L, Hematocrit 36L , Mean Corpuscular Volume 86, Mean Corpuscular Hemoglobin 28, Mean Corpuscular Hemoglobin Concent 32, Red Cell Distribution Width 15.0H, Platelet Count 202, Mean Platelet Volume 9.6, Neutrophils (%) (Auto) 84H, Lymphocytes (%) (Auto) 9L, Monocytes (%) (Auto) 7, Eosinophils (%) (Auto) 0, Basophils (%) (Auto) 0, Neutrophils # (Auto) 10.2H, Lymphocytes # (Auto) 1.1, Monocytes # (Auto) 0.9, Eosinophils # (Auto) 0.0, Basophils # (Auto) 0.0, Sodium Level 137, Potassium Level 4.2, Chloride Level 104, Carbon Dioxide Level 21, Anion Gap 12, Blood Urea Nitrogen 16, Creatinine 0.92, Estimat Glomerular Filtration Rate > 60, BUN/Creatinine Ratio 17, Glucose Level 134H, Calcium Level 9.4, Corrected Calcium 9.6, Total Bilirubin 0.2, Aspartate Amino Transf (AST/SGOT) 18, Alanine Aminotransferase (ALT/SGPT) 19, Alkaline Phosphatase 80, Total Protein 6.2L, Albumin 3.7 Laboratory Tests 12/15/18 06:44 A/P: Assessment: CAD. Pt reports a remote h/o cor stent (Dr Buchanan). No current angina Hypertension Obesity with BMI approx 47 S/p R TKR on 12/14/18 Plan: * Continue his cardiac and hypertensive regimen * Monitor labs * DVT prophylaxis recommended * Echo in FELIX Miranda MD FACP FAC CCDS Dec 15, 2018 20:48
--- NOTE | 2018-12-15 21:59 | DISCHARGE SUMMARY ---
DATE OF SERVICE: DATE OF DISCHARGE: 12/16/2018. DIAGNOSES: 1. Right knee primary osteoarthritis. 2. Fatigue. 3. Dizziness. 4. Venous insufficiency. 5. Cellulitis. 6. Obesity. 7. Chronic obstructive pulmonary disease. 8. Hypothyroidism. 9. Reflux. PROCEDURE: Right total knee arthroplasty. SUMMARY: The patient is a 73-year-old gentleman who was admitted the day of a right total knee arthroplasty, which he underwent without complications. Postoperatively, he did very well. At the time of discharge, his wound was clean and dry. No calf tenderness. Negative Homans sign. He had attained independent status with physical therapy. He was tolerating his diet well and tolerating pains with oral pain medication. CONDITION ON DISCHARGE: Good. DISCHARGE DIET: Regular. FOLLOWUP: Followup is in three weeks. Home physical therapy has been arranged. DISCHARGE MEDICATIONS: Home medications and aspirin. ACTIVITIES: Weightbearing as tolerated with a walker. Job ID: [id number] DocumentID: [id number] Dictated Date: 12/15/2018 11:59:00 Injector Assembler Date: 12/15/2018 21:59:17 Dictated By: SAY WALSH MD
[2018-12-16 00:33] VITALS: BP 157/72
[2018-12-16] MEDS: NS IV 1000 ML 1,000 ML IV SCH (03:32)
[2018-12-16 04:32] VITALS: BP 166/75
[2018-12-16] MEDS: MULTIVIT W/MINERALS TAB (THERAGRAN M) PO SCH (04:55)
[2018-12-16] MEDS: LEVOTHYROXINE 50 MCG (LEVOTHROID) TAB PO SCH (04:55)
[2018-12-16] MEDS: oxyCODONE/APAP 5/325MG (PERCOCET 5) TABLET PO PRN ×3 (04:55→13:31)
--- NOTE | 2018-12-16 07:05 | Progress Note-Standard ---
Standard Progress Note Progress Notes/Assess & Plan Date Seen by a Provider: Dec 16, 2018 Time Seen by a Provider: 07:03 Progress/Assessment & Plan post op check NO complaints radiographs--Hw well positioned without fracture RLE--dressing intact. Intact DF and PF of toes and ankle. brisk cap refill with equal DP pulse. sensation intact throughout s/p RTKA mobilize as able Final Diagnosis no complaints Vital Signs Date Time Temp Pulse Resp B/P (MAP) Pulse Ox O2 Delivery O2 Flow Rate FiO2 12/16/18 04:32 97.0 87 16 166/75 (105) 97 Room Air 12/16/18 00:33 99.2 79 18 157/72 (100) 97 Room Air 12/15/18 21:11 Room Air 12/15/18 19:15 98.7 82 20 143/68 (93) 97 Room Air 12/15/18 16:00 97.8 75 20 148/71 (96) 97 Room Air 12/15/18 12:20 97.8 73 21 149/73 (98) 97 Room Air 0.00 12/15/18 09:22 98 Nasal Cannula 2.00 12/15/18 08:26 98.8 89 24 152/50 (84) 96 Room Air 0.00 12/15/18 07:52 96 Room Air I & O 12/16/18 07:00 Intake Total 4100 ml Output Total 875 ml Balance 3225 ml LLOE--incision benign. no calf tenderness. Neg SLR s/p LTKA continue PT/OT DC later today if tolerating PO pain medSAY Huerta MD Dec 16, 2018 07:05
[2018-12-16] MEDS: RT-ADVAIR HFA 45/21 MCG PER PUFF IH SCH ×2 (07:06→08:00)
[2018-12-16] MEDS ORDERED: morphine INJ 4 MG/ML 1 ML (VIAL/SYRINGE) IVP PRN (07:15)
[2018-12-16 07:39] LABS: ALANINE AMINOTRANSFERASE 17 U/L (0-55); ALBUMIN 3.4 GM/DL (3.2-4.5); ALKALINE PHOSPHATASE 68 U/L (40-136); BILIRUBIN,TOTAL 0.1 MG/DL (0.1-1.0); BUN/CREATININE RATIO 19; CALCIUM 8.6 MG/DL (8.5-10.1); CARBON DIOXIDE 23 MMOL/L (21-32); CHLORIDE 106 MMOL/L (98-107); CREATININE SERUM 0.86 MG/DL (0.60-1.30); GFR ESTIMATED > 60; GLUCOSE 113 MG/DL (70-105); SODIUM 138 MMOL/L (135-145); TOTAL PROTEIN 5.7 GM/DL (6.4-8.2)
[2018-12-16] MEDS: UMECLIDINIUM BROMIDE (INCRUSE ELLIPTA) 7'S IH SCH (08:00)
--- NOTE | 2018-12-16 08:20 | NUR ---
COLOR STRAINING BAG WASHER pump DC'd. wasted 90 cc with Shannon BROWN
[2018-12-16 08:27] VITALS: BP 153/69
[2018-12-16] MEDS: ENOXAPARIN 40 MG/0.4 ML (LOVENOX) SYR SC SCH (09:05)
[2018-12-16] MEDS: VITAMIN D3 400 UNITS (CHOLECALCIFEROL) TABLET PO SCH (09:05)
[2018-12-16] MEDS: SENNA W/DOCUSATE (SENOKOT S) TABLET PO SCH (09:05)
[2018-12-16] MEDS: DILTIAZEM 180 MG (CARDIZEM CD) CAP PO SCH (09:06)
[2018-12-16] MEDS: ASPIRIN E.C. 81 MG (ECOTRIN) TAB PO SCH (09:06)
--- NOTE | 2018-12-16 09:47 | Physical Therapy Daily Note ---
PT Daily Note-Current Subjective Patient agrees to PT. He reports he is ready to go home today. Pain Numeric Pain Scale: 5-Moderate Pain Location: Right Location Body Site: Knee Pain Description: Acute Mental Status Patient Orientation: Normal For Age Transfers Therapy Code Descriptions/Definitions Functional [place] Measure: 0=Not Assessed/NA 4=Minimal Assistance 1=Total Assistance 5=Supervision or Setup 2=Maximal Assistance 6=Modified [place] 3=Moderate Assistance 7=Complete [place] Therapy Quality Codes: 6 Independent with activity with or without an assistive device 5 Patient requires set up or clean up by helper. Patient completes activity by themselves 4 Supervision or touching assist (CGA). [place] provide cues , steadying assist 3 The helper provides less than half the effort to complete the activity 2 The helper provides more than half the effort to complete the activity 1 Dependent. The helper does all the effort to complete an activity 7 Patient refused to complete or attempt activity 9 The patient did not perform the activity before the current illness or injury 88 Not attempted due to Medical conditions or safety concerns Transfers (B, C, W/C) (FIM): 6 Scootin Supine to/from Sit: 6 Sit to/from Stand: 6 Bed to/from Chair: 6 Weight Bearing Right Lower Extremity: Right Weight Bearing/Tolerated Left Lower Extremity: Left Full Weight Bearing Gait Training Gait (FIM): 6 Distance (FIM): 3=150 ft Distance: 400' Gait Level of Assist: 6 Gait Assistive Device: FWW reciprocal pattern, steady gait sequence Exercises Supine Ex: Ankle pumps, Quad Set, Heel Slides, Straight leg raise Supine Reps: 15 Seated Therapy Exercises: Long arc quads Seated Reps: 15 Assessment Patient tolerated treatment well and has been instructed to be up ad meenakshi in hallway and in room. Plan dismissal on this date. PT Short Term Goals Short Term Goals Time Frame: Dec 21, 2018 Transfers (B,C,W/C) (FIM): 5 Gait (FIM): 2 Gait Distance Comment: 50' Gait Level of Assist: 4 Gait Assistive Device: FWW PT Plan Treatment/Plan Treatment Plan: Continue Plan of Care Treatment Plan: Bed Mobility, Education, Functional Activity Mia, Functional Strength, Gait, Safety, Therapeutic Exercise, Transfers Treatment Duration: Dec 21, 2018 Frequency: 11 times per week Estimated Hrs Per Day: .25 hour per day Patient and/or Family Agrees t: Yes Time/GCodes Time In: 815 Time Out: 838 Total Billed Treatment Time: 23 Total Billed Treatment 1 visit EX 15 min GT 8 min FABI NEGRO PT Dec 16, 2018 09:47
--- NOTE | 2018-12-16 10:29 | Progress Note-Hospitalist ---
Subjective HPI/CC On Admission Date Seen by Provider: Dec 16, 2018 Time Seen by Provider: 09:45 CC: Right knee replacement medical management following uncomplicated surgery by Dr. Slater POD# 0 HPI: This is a [address] Disla in [place] in addition to Dr. Dunne Cardiology and Dr. Manuel pulmonology who has a PMH of HTN and MARCOS on CPAP- somewhat compliant who presents after an uncomplicated knee replacement from Dr. Slater. At this current time, Pt is a little bit delayed in responses due to pain medication and he will be maintained on a [employer] pump. I will consult Dr. Osuna since he does see cardiology in [place], and considering he has increased risk factors for respiratory compromise and volume overload I will go ahead and consult cardiology for further evaluation and assessment. At this current time, Pt reports pain is under control while on pain medication and I did review his home medication and pre-op evaluation. Subjective/Events-last exam Patient doing very well Physical therapy is impressed with his capability Bowels are moving Urinating well Breathing well No decompensation for respiratory or cardiac issues postop knee replacement Review of Systems Musculoskeletal: leg pain Objective Exam Vital Signs Vital Signs Date Time Temp Pulse Resp B/P (MAP) Pulse Ox O2 Delivery O2 Flow Rate FiO2 12/16/18 09:00 Room Air 12/16/18 08:27 97.0 72 22 153/69 (97) 98 0.00 Capillary Refill : Less Than 3 Seconds General Appearance: No Apparent Distress, WD/WN, Chronically ill, Obese HEENT: PERRL/EOMI, Normal ENT Inspection, Pharynx Normal Neck: Full Range of Motion, Normal Inspection, Non Tender, Supple, Carotid Bruit Respiratory: Chest Non Tender, Lungs Clear, Normal Breath Sounds, No Accessory Muscle Use, No Respiratory Distress, Decreased Breath Sounds Cardiovascular: Regular Rate, Rhythm, No Edema, No Gallop, No JVD, No Murmur, Normal Peripheral Pulses Gastrointestinal: Normal Bowel Sounds, No Organomegaly, No Pulsatile Mass, Non Tender, Soft Back: Normal Inspection, No CVA Tenderness, No Vertebral Tenderness Extremity: Normal Capillary Refill, Normal Inspection, Normal Range of Motion (except knee post op), Non Tender, No Calf Tenderness, No Pedal Edema Neurologic/Psychiatric: Alert, Oriented x3, No Motor/Sensory Deficits, Normal Mood/Affect, Disoriented (subtle) Skin: Normal Color, Warm/Dry Lymphatic: No Adenopathy Results/Procedures Lab Laboratory Tests 12/16/18 06:41 Patient resulted labs reviewed. Assessment/Plan Assessment and Plan Assess & Plan/Chief Complaint Assessment: s/p right knee replacement POD # 2 MARCOS semi-compliant with CPAP CAD s/p stents in past HTN HLP Obesity Plan: DC home Appreciate Dr Osuna consultation CPAP/O2 Pain control Monitor closely Diagnosis/Problems Diagnosis/Problems (1) CAD (coronary artery disease) Status: Chronic Qualifiers: Coronary Disease-Associated Artery/Lesion type: [place] artery [place] vs. transplanted heart: [place] heart Associated angina: without angina Qualified Codes: I25.10 - Atherosclerotic heart disease of [place] coronary artery without angina pectoris (2) Presence of stent in coronary artery Status: Chronic (3) Obesity Status: Chronic Qualifiers: Obesity type: due to excess calories Obesity classification: adult class 3 (BMI >= 40) Body mass index: BMI 45.0-49.9 (4) MARCOS on CPAP Status: Chronic (5) Osteoarthritis of right knee Status: Chronic Qualifiers: Osteoarthritis type: primary Qualified Codes: M17.11 - Unilateral primary osteoarthritis, right knee (6) Essential (primary) hypertension Status: Chronic (7) Hypothyroidism Status: Chronic Qualifiers: Hypothyroidism type: acquired Qualified Codes: E03.9 - Hypothyroidism, unspecified (8) COPD (chronic obstructive pulmonary disease) Status: Chronic Qualifiers: COPD type: unspecified COPD Qualified Codes: J44.9 - Chronic obstructive pulmonary disease, unspecified YINA VERA DO Dec 16, 2018 10:29
[2018-12-16 12:00] VITALS: BP 169/66
[2018-12-16 14:19] VITALS: BP 169/66
== END 2018-12-16 14:21 | disposition home health service (06) | DRG 470 ==
LOC: 4TH 05:45 → SURG 05:46 → 4TH 10:15
PROVIDERS: ADMIT Orthopaedic Surgery; ATTEND Orthopaedic Surgery
PROC: 0SRC0J9 Replacement of Right Knee Joint with Synthetic Substitute, Cemented, Open Approach (ICD-10-PCS; principal; 2018-12-14 07:27)
DX: M17.11 Unilateral primary osteoarthritis, right knee (principal); E66.01 Morbid (severe) obesity due to excess calories; Z68.42 Body mass index [BMI] 45.0-49.9, adult; J44.9 Chronic obstructive pulmonary disease, unspecified; G47.33 Obstructive sleep apnea (adult) (pediatric); E03.9 Hypothyroidism, unspecified; K21.9 Gastro-esophageal reflux disease without esophagitis; I25.10 Atherosclerotic heart disease of native coronary artery without angina pectoris; E78.00 Pure hypercholesterolemia, unspecified; I87.2 Venous insufficiency (chronic) (peripheral); F32.9 Major depressive disorder, single episode, unspecified; L40.9 Psoriasis, unspecified; J30.2 Other seasonal allergic rhinitis; M54.9 Dorsalgia, unspecified; R42 Dizziness and giddiness; R53.83 Other fatigue; Z95.5 Presence of coronary angioplasty implant and graft; Z87.891 Personal history of nicotine dependence; Z96.652 Presence of left artificial knee joint
CPT/HCPCS: 36415; 73560; 80053; 85025; 86850; 86900; 86901; 93306; 94664; 94760

== ENCOUNTER 2019-12-04 05:40 | Outpatient (RCR) | payer MEDICARE, OTHER ==
[~2019-12-04] VITALS: Ht 177 cm; Wt 145.0 kg
[~2019-12-04 05:40] MED LIST changes: +CHOL10007 PO; -MONT10TA24 PO; +MONT10TA26 PO; -TAMS0.4C98 PO; +TMSL.4C PO; +TRZ50T PO
== END 2019-12-04 15:08 | disposition home or self-care (01) ==
LOC: PREOP 05:40
PROVIDERS: ATTEND Orthopaedic Surgery
DX: Z01.818 Encounter for other preprocedural examination (principal); Z11.59 Encounter for screening for other viral diseases
CPT/HCPCS: 87635

== ENCOUNTER 2019-12-06 09:15 | Day surgery (SDC) | payer MEDICARE, OTHER ==
--- NOTE | 2019-11-26 15:50 | HISTORY AND PHYSICAL ---
DATE OF SERVICE: DATE OF ADMISSION: 12/06/2019. This will be for outpatient surgery on 12/06/2019 for right rotator cuff repair. HISTORY OF PRESENT ILLNESS: The patient is a 74-year-old gentleman who injured his right shoulder when he fell in the due to the COVID-19 situation. He was unable to have surgery as an MRI revealed a large retracted rotator cuff tear. The patient has had weakness and disability in the right shoulder since the time of his fall with no improvement with home exercises. Due to functional impairment and failure to improve with conservative measures, the patient elected to proceed with surgical intervention. He understands that this may be an irreparable or partial reparable tear. REVIEW OF SYSTEMS: No chest pain, no shortness of breath, no dysuria. PAST MEDICAL HISTORY: Osteoarthritis, venous insufficiency, cellulitis, alpha-1 antitrypsin deficiency, obstructive sleep apnea, obesity, asthma, hypothyroidism, esophageal reflux. PAST SURGICAL HISTORY: Bilateral total knee arthroplasty, carpal tunnel releases, coronary artery stent placement, knee arthroscopy, adenoidectomy, tonsillectomy. SOCIAL HISTORY: The patient denies alcohol, tobacco use. FAMILY HISTORY: Significant for cardiovascular disease. PRIMARY CARE PROVIDER: Outside physician. MEDICATIONS: Fish oil, Synthroid, furosemide, Calmoseptine, ProAir, multivitamin, Nitrostat, Advair, Spiriva, triamcinolone, aspirin, tamsulosin, losartan, Diltiazem, trazodone. ALLERGIES: CRESTOR, STATINS, LIPITOR. PHYSICAL EXAMINATION: GENERAL: The patient is well-developed, well-nourished, in no acute distress. HEENT: Normocephalic, atraumatic. Pupils are equal, round, reactive to light. Oropharynx is clear. NECK: Supple, no lymphadenopathy. LUNGS: Clear to auscultation bilaterally. HEART: Regular rate and rhythm. ABDOMEN: Soft, nontender, nondistended. EXTREMITIES: Right shoulder demonstrates active forward elevation of 90 degrees, external rotation of 70 degrees, internal rotation is to his midlumbar spine. He has marked weakness with abduction and external rotation. Passive range of motion is full. He can maintain full forward elevation with assistance. IMPRESSION: Large retracted right rotator cuff tear. PLAN: Right shoulder arthroscopy with open rotator cuff repair. Risks, benefits, options, ramifications and recovery were discussed at length with the patient. He understands and wishes to proceed. Job ID: [id number] DocumentID: [id number] Dictated Date: 11/26/2019 14:52:50 Hotel Controller Date: 11/26/2019 15:48:36 Dictated By: SAY WALSH MD
[~2019-12-06] VITALS: Ht 177 cm; Wt 145.0 kg
[2019-12-06] VITALS (9 sets, daily range): BP systolic 116–144; BP diastolic 41–71
[~2019-12-06 09:15] MED LIST changes: +oxyCODONE/APAP 5/325MG (PERCOCET 5) TABLET PO PRN
--- NOTE | 2019-12-06 09:26 | Progress Note-Pre Operative ---
Pre-Operative Progress Note H&P Reviewed The H&P was reviewed, patient examined and no changes noted. Date Seen by Provider: Dec 06, 2019 Time Seen by Provider: : Date H&P Reviewed: Dec 06, 2019 Time H&P Reviewed: :25 Pre-Operative Diagnosis: right rotator cuff tear SAY WALSH MD Dec 06, 2019 09:26
--- NOTE | 2019-12-06 09:27 | Progress Note-Post Operative ---
Post-Operative Progess Note Surgeon (s)/Doctor Of Nurse Anesthesia (s) Surgeon SAY WALSH MD Doctor Of Nurse Anesthesia: Ritesh Arshad Pre-Operative Diagnosis right rotator cuff tear Post-Operative Diagnosis right rotator cuff tear Procedure & Operative Findings Date of Procedure 12/06/19 Procedure Performed/Findings right shoulder arthroscopic acromioplasty and open rotator cuff repair Anesthesia Type GETA Estimated Blood Loss Estimated blood loss (mL): minimal Specimens/Packing Specimens Removed none Packing: none SAY WALSH MD Dec 06, 2019 09:27
[2019-12-06] MEDS ORDERED: LACTATED RINGERS 1,000 ML IV PRN (09:35)
[2019-12-06] MEDS ORDERED: ceFAZolin INJECTION 1,000 MG in WATER (STERILE) FOR INJECTION 10 ML IV ONE (09:45)
[2019-12-06] MEDS ORDERED: CATHETER FLUSH 10 ML SYR IV PRN (09:45)
--- OUTSIDE RECORDS SUMMARY | 2019-12-06 10:14 | XMS REPORT | Continuity of Care Document ---
Author Organization Unknown Address Unknown Phone Unavailable Allergies Active Description Code Type Severity Reaction Onset Reported/Identified Relationship to Patient Clinical Status Yes Qnhprlz-Aum-Pyv Reductase Inhibitor [id number] Drug Allergy Unknown JOINT AND MUSCL 09/07/2018 Yes Ccxalww-Xke-Oxt Reductase Inhibitor [id number] Drug Allergy Mild JOINT AND MUSCL 12/01/2019 Medications There is no data. Problems Date [...] SCREENING FOR OTHER BACTER 09/08/2018 SAY WALSH MD, Ot M17.12 UNILATERAL PRIMARY OSTEOARTHRITIS, LEFT 09/08/2018 SAY WALSH MD Ot R53.83 OTHER FATIGUE 09/08/2018 SAY WALSH MD Ot R82.90 UNSPECIFIED ABNORMAL FINDINGS IN URINE 09/08/2018 SAY WALSH MD Ot Z01.811 ENCOUNTER FOR PREPROCEDURAL RESPIRATORY 09/08/2018 SAY WALSH MD Ot Z01.812 ENCOUNTER FOR PREPROCEDURAL LABORATORY E 09/08/2018 SAY WALSH MD Ot Z11.2 ENCOUNTER FOR SCREENING FOR OTHER BACTER 09/08/2018 SAY WALSH MD, Ot M17.12 UNILATERAL PRIMARY OSTEOARTHRITIS, LEFT 09/08/2018 [...] DEPRESSIVE DISORDER, SINGLE EPISOD 09/16/2018 SAY WALSH MD, Ot I1 0 ESSENTIAL (PRIMARY) HYPERTENSION 09/16/2018 SAY WALSH MD Ot I87.2 VENOUS INSUFFICIENCY (CHRONIC) (PERIPHER 09/16/2018 SAY WALHS MD Ot J30.2 OTHER SEASONAL ALLERGIC RHINITIS 09/16/2018 SAY WALSH MD, Ot J44.9 CHRONIC OBSTRUCTIVE PULMONARY DISEASE, U 09/16/2018 SAY WALSH MD Ot K21.9 GASTRO-ESOPHAGEAL REFLUX DISEASE WITHOUT 09/16/2018 SAY WALSH MD Ot L40.9 PSORIASIS, UNSPECIFIED 09/16/2018 SAY WALSH MD Ot M17.12 UNILATERAL PRIMARY OSTEOARTHRITIS, LEFT 09/16/2018 [...] Ot Z95.5 PRESENCE OF CORONARY ANGIOPLASTY IMPLANT 12/02/2018 SAY WALSH MD Ot M17.11 UNILATERAL PRIMARY OSTEOARTHRITIS, RIGHT 12/02/2018 SAY WALSH MD Ot R53.83 OTHER FATIGUE 12/02/2018 SAY WALSH MD Ot R82.998 OTHER ABNORMAL FINDINGS IN URINE 12/02/2018 SAY WALSH MD Ot Z01.810 ENCOUNTER FOR PREPROCEDURAL CARDIOVASCUL 12/02/2018 SAY WALSH MD Ot Z01.811 ENCOUNTER FOR PREPROCEDURAL RESPIRATORY 12/02/2018 SAY WALSH MD Ot Z01.812 ENCOUNTER FOR PREPROCEDURAL LABORATORY E 12/02/2018 SAY WALSH MD Ot Z11.2 ENCOUNTER FOR SCREENING FOR OTHER BACTER 12/05/2018 SAY WALSH MD Ot M17.11 UNILATERAL PRIMARY OSTEOARTHRITIS, RIGHT 12/05/2018 SAY WALSH MD Ot R53.83 OTHER FATIGUE 12/05/2018 SAY WALSH MD Ot R82.998 OTHER ABNORMAL FINDINGS IN URINE 12/05/2018 SAY WALSH MD Ot Z01.810 ENCOUNTER FOR PREPROCEDURAL CARDIOVASCUL 12/05/2018 SAY WALSH MD Ot Z01.811 ENCOUNTER FOR PREPROCEDURAL RESPIRATORY 12/05/2018 SAY WALSH MD Ot Z01.812 ENCOUNTER FOR PREPROCEDURAL LABORATORY E 12/05/2018 SAY WALSH MD Ot Z11.2 ENCOUNTER FOR SCREENING FOR OTHER BACTER 12/16/2018 SAY WALSH MD Ot E03.9 HYPOTHYROIDISM, UNSPECIFIED 12/16/2018 SAY WALSH MD Ot E66.01 MORBID (SEVERE) OBESITY DUE TO EXCESS CA 12/16/2018 SAY WALSH MD Ot E78.00 PURE HYPERCHOLESTEROLEMIA, UNSPECIFIED 12/16/2018 SAY WALSH MD Ot F32.9 MAJOR DEPRESSIVE DISORDER, SINGLE EPISOD 12/16/2018 SAY WALSH MD Ot G47.33 OBSTRUCTIVE SLEEP APNEA (ADULT) (PEDIATR 12/16/2018 SAY WALSH MD Ot I25.10 ATHSCL HEART DISEASE OF [place] CORONARY 12/16/2018 SAY WALSH MD Ot I87.2 VENOUS INSUFFICIENCY (CHRONIC) (PERIPHER 12/16/2018 SAY WALSH MD Ot J30.2 OTHER SEASONAL ALLERGIC RHINITIS 12/16/2018 SAY WALSH MD Ot J44.9 CHRONIC OBSTRUCTIVE PULMONARY DISEASE, U 12/16/2018 SAY WALSH MD Ot K21.9 GASTRO-ESOPHAGEAL REFLUX DISEASE WITHOUT 12/16/2018 SAY WALSH MD, Ot L40.9 PSORIASIS, UNSPECIFIED 12/16/2018 SYA WALSH MD, Ot M17.11 UNILATERAL PRIMARY OSTEOARTHRITIS, RIGHT 12/16/2018 SAY WALSH MD, Ot M54.9 DORSALGIA, UNSPECIFIED 12/16/2018 SAY WALSH MD, Ot R4 2 DIZZINESS AND GIDDINESS 12/16/2018 SAY WALSH MD, Ot R53.83 OTHER FATIGUE 12/16/2018 SAY WALSH MD, Ot Z68.42 BODY MASS INDEX (BMI) 45.0-49.9, ADULT 12/16/2018 SAY WALSH MD, Ot Z87.891 PERSONAL HISTORY OF NICOTINE DEPENDENCE 12/16/2018 SAY WALSH MD, Ot Z95.5 PRESENCE OF CORONARY ANGIOPLASTY IMPLANT 12/16/2018 SAY WALSH MD, Ot Z96.652 PRESENCE OF LEFT ARTIFICIAL KNEE JOINT Procedures Code Description Performed By Per formed On [id number] RE PLACE OF L KNEE JT WITH SYNTH SUB, SANJUANITA 09/14/[id number] OF R KNEE JT WITH SYNTH SUB, SANJUANITA 12/14/2018 Results Test Result Range Methicillin resistant Staphylococcus aur eus (MRSA) screening culture - 09/07/18 10:55 Methicillin resistant Staphylococcus aureus (MRSA) scr eening culture NEG NRG Complete blood count (CBC) with automate d white blood cell (WBC) differential - 09/07/18 11:00 Blood leukocytes automated count (number/volume) 6.7 10*3/uL 4.3-11.0 Blood erythrocytes automated count (number/volume) 4.46 10*6/uL 4.35-5.85 Venous blood hemoglobin measurement (mass/volume) 13.0 g/dL 13.3-17.7 Blood hematocrit (volume fraction) 39 % 40-54 Automated erythrocyte mean corpuscular volume 87 [ foz_us] 80-99 Automated erythrocyte mean corpuscular h emoglobin (mass per erythrocyte) 29 pg 25-34 Automated erythrocyte mean corpuscular h emoglobin concentration measurement (mass/volume) 34 g/dL 32-36 Automated erythrocyte distribution width ratio 14. 9 % 10.0- 14.5 Automated blood platelet count [...] 10*3 1.0-4.0 Blood monocytes automated count (number/volume) 0. 6 10*3 0.0-1.0 Automated eosinophil count 0.1 10*3/uL 0 .0-0.3 Automated blood basophil count (count/volume) 0.0 10*3/uL 0.0-0.1 PT panel in platelet poor plasma by coag ulation assay - 09/07/18 11:00 Prothrombin time (PT) in platelet poor plasma by coagu lation assay 14.0 s 12.2-14.7 INR in platelet poor plasma or blood by coagulation as say 1.1 0.8-1.4 Comprehensive metabolic panel - 09/07/18 11:00 Serum or plasma sodium measurement (moles/volume) 141 mmol/L 135-145 Serum or plasma potassium measurement (moles/volume) 3.5 mmol/L 3.6-5.0 Serum or plasma chloride measurement (moles/volume) 105 mmol/L 98-107 Carbon dioxide 25 mmol/L 21-32 Serum or plasma anion gap determination (moles/volume) 11 mmol/L 5-14 Serum or plasma urea nitrogen measurement (mass/volume ) 15 mg/dL 7-18 Serum or plasma creatinine measurement (mass/volume) 1.02 mg/dL 0.60-1.30 Serum or plasma urea nitrogen/creatinine mass ratio 15 NRG Serum or plasma creatinine measurement w ith calculation of estimated glomerular filtration rate > NRG Serum or plasma glucose measurement (mass/volume) 128 mg/dL 70-105 Serum or plasma calcium measurement (mass/volume) 10.1 mg/dL 8.5-10.1 Serum or plasma total bilirubin measurement (mass/volu me) 0.5 mg/dL 0.1-1.0 Serum or plasma alkaline phosphatase caitie surement (enzymatic activity/volume) 68 U/L 40-136 Serum or plasma aspartate aminotransfera se measurement (enzymatic activity/volume) 28 U/L 5-34 Serum or plasma alanine aminotransferase measurement (enzymatic activity/volume) 23 U/L 0-55 Serum or plasma protein measurement (mass/volume) 6.9 g/dL 6.4-8.2 Serum or plasma albumin measurement (mass/volume) 4.0 g/dL 3.2-4.5 CALCIUM CORRECTED 10.1 mg/dL 8.5-10.1 Blood type T Indirect antibody screen [facility] - 09/07/18 11:00 ABO+Rh group AP NRG Blood group antibody screen NEGATIVE NR G Erythrocyte sedimentation rate by lincoln gren method - 09/07/18 11:00 Erythrocyte sedimentation rate by westergren method 32 mm 0- 30 Complete urinalysis with reflex to cultu re - 09/07/18 11:23 Urine color determination LONNY NRG Urine clarity determination CLEAR NR G Urine pH measurement by test strip 6 5-9 Specific gravity of urine by test strip 1.030 1.016-1.022 Urine protein assay by test strip, semi-quantitative 2+ NEGATIVE Urine glucose detection by automated test strip NE GATIVE NEGATIVE Erythrocytes detection in urine sediment by light micr oscopy 4+ NEGATIVE Urine ketones detection by automated test strip NE GATIVE NEGATIVE Urine nitrite detection by test strip NEGATIVE NEGATIVE Urine total bilirubin detection by test strip NEGA TIVE NEGATIVE Urine urobilinogen measurement by automated test strip (mass/volume) NORMAL NORMAL Urine leukocyte esterase detection by dipstick 1+ NEGATIVE Automated urine sediment erythrocyte cou nt by microscopy (number/high power field) [HPF] NRG Automated urine sediment leukocyte count by microscopy (number/high power field) [HPF] NRG Bacteria detection in urine sediment by light microsco py TRACE NRG Squamous epithelial cells detection in u rine sediment by light microscopy 2-5 NRG Crystals detection in urine sediment by light microsco py PRESENT NRG Casts detection in urine sediment by light microscopy NONE NRG Mucus detection in urine sediment by light microscopy NEGATIVE NRG Complete urinalysis with reflex to culture YES NRG Calcium oxalate crystals detection in ur ine sediment by light microscopy RARE NRG Bacterial urine culture - 09/07/18 11:23 Bacterial urine culture NG NRG Blood type T Indirect antibody screen [facility] - 09/14/18 06:30 ABO+Rh group AP NRG Transfusion band number [id number] NRG Blood group antibody screen NEGATIVE NR G Methicillin resistant Staphylococcus aur eus (MRSA) screening culture - 09/14/18 06:30 Methicillin resistant Staphylococcus aureus (MRSA) scr eening culture NEG NRG Whole blood hemoglobin and hematocrit [facility] - 09/15/18 05:15 Venous blood hemoglobin measurement (mass/volume) 11.4 g/dL 13.3-17.7 Blood hematocrit (volume fraction) 36 % 40-54 Whole blood hemoglobin and hematocrit [facility] - 09/16/18 06:10 Venous blood hemoglobin measurement (mass/volume) 11.1 g/dL 13.3-17.7 Blood hematocrit (volume fraction) 35 % 40-54 Complete blood count (CBC) with automate d white blood cell (WBC) differential - 12/02/18 12:25 Blood leukocytes automated count (number/volume) 6.6 10*3/uL 4.3-11.0 Blood erythrocytes automated count (number/volume) 4.68 10*6/uL 4.35-5.85 Venous blood hemoglobin measurement (mass/volume) 12.8 g/dL 13.3-17.7 Blood hematocrit (volume fraction) 40 % 40-54 Automated erythrocyte mean corpuscular volume 85 [ foz_us] 80-99 Automated erythrocyte mean corpuscular h emoglobin (mass per erythrocyte) 27 pg 25-34 Automated erythrocyte mean corpuscular h emoglobin concentration measurement (mass/volume) 32 g/dL 32-36 Automated erythrocyte distribution width ratio 15. 7 % 10.0- 14.5 Automated blood platelet count [...] 10*3 1.0-4.0 Blood monocytes automated count (number/volume) 0. 6 10*3 0.0-1.0 Automated eosinophil count 0.1 10*3/uL 0 .0-0.3 Automated blood basophil count (count/volume) 0.0 10*3/uL 0.0-0.1 Complete urinalysis with reflex to cultu re - 12/02/18 12:25 Urine color determination YELLOW NRG Urine clarity determination SLIGHTLY CLOUDY NRG Urine pH measurement by test strip 6 5-9 Specific gravity of urine by test strip 1.025 1.016-1.022 Urine protein assay by test strip, semi-quantitative 3+ NEGATIVE Urine glucose detection by automated test strip NE GATIVE NEGATIVE Erythrocytes detection in urine sediment by light micr oscopy 4+ NEGATIVE Urine ketones detection by automated test strip NE GATIVE NEGATIVE Urine nitrite detection by test strip NEGATIVE NEGATIVE Urine total bilirubin detection by test strip NEGA TIVE NEGATIVE Urine urobilinogen measurement by automated test strip (mass/volume) NORMAL NORMAL Urine leukocyte esterase detection by dipstick 3+ NEGATIVE Automated urine sediment erythrocyte cou nt by microscopy (number/high power field) [HPF] NRG Automated urine sediment leukocyte count by microscopy (number/high power field) > [HPF] NRG Bacteria detection in urine sediment by light microsco py FEW NRG Squamous epithelial cells detection in u rine sediment by light microscopy 0-2 NRG Crystals detection in urine sediment by light microsco py PRESENT NRG Casts detection in urine sediment by light microscopy NONE NRG Mucus detection in urine sediment by light microscopy NEGATIVE NRG Complete urinalysis with reflex to culture YES NRG Calcium oxalate crystals detection in ur ine sediment by light microscopy RARE NRG PT panel in platelet poor plasma by coag ulation assay - 12/02/18 12:25 Prothrombin time (PT) in platelet poor plasma by coagu lation assay 14.0 s 12.2-14.7 INR in platelet poor plasma or blood by coagulation as say 1.0 0.8-1.4 Comprehensive metabolic panel - 12/02/18 12:25 Serum or plasma sodium measurement (moles/volume) 140 mmol/L 135-145 Serum or plasma potassium measurement (moles/volume) 3.8 mmol/L 3.6-5.0 Serum or plasma chloride measurement (moles/volume) 106 mmol/L 98-107 Carbon dioxide 26 mmol/L 21-32 Serum or plasma anion gap determination (moles/volume) 8 mmol/L 5-14 Serum or plasma urea nitrogen measurement (mass/volume ) 10 mg/dL 7-18 Serum or plasma creatinine measurement (mass/volume) 0.88 mg/dL 0.60-1.30 Serum or plasma urea nitrogen/creatinine mass ratio 11 NRG Serum or plasma creatinine measurement w ith calculation of estimated glomerular filtration rate > NRG Serum or plasma glucose measurement (mass/volume) 104 mg/dL 70-105 Serum or plasma calcium measurement (mass/volume) 9.7 mg/dL 8.5-10.1 Serum or plasma total bilirubin measurement (mass/volu me) 0.4 mg/dL 0.1-1.0 Serum or plasma alkaline phosphatase caitie surement (enzymatic activity/volume) 91 U/L 40-136 Serum or plasma aspartate aminotransfera se measurement (enzymatic activity/volume) 24 U/L 5-34 Serum or plasma alanine aminotransferase measurement (enzymatic activity/volume) 23 U/L 0-55 Serum or plasma protein measurement (mass/volume) 6.9 g/dL 6.4-8.2 Serum or plasma albumin measurement (mass/volume) 4.1 g/dL 3.2-4.5 CALCIUM CORRECTED 9.6 mg/dL 8.5-10.1 Blood type T Indirect antibody screen [facility] - 12/02/18 12:25 ABO+Rh group AP NRG Blood group antibody screen NEGATIVE NR G Erythrocyte sedimentation rate by lincoln gren method - 12/02/18 12:25 Erythrocyte sedimentation rate by westergren method 20 mm 0- 30 Bacterial urine culture - 12/02/18 12:25 Bacterial urine culture NG NRG Methicillin resistant Staphylococcus aur eus (MRSA) screening culture - 12/02/18 12:30 Methicillin resistant Staphylococcus aureus (MRSA) scr eening culture NEG NRG Blood type T Indirect antibody screen [facility] - 12/14/18 06:25 WRISTBAND NUMBER [id number] NRG ABO+Rh group AP NRG Blood group antibody screen NEGATIVE NR G Complete blood count (CBC) with automate d white blood cell (WBC) differential - 12/15/18 06:44 Blood leukocytes automated count (number/volume) 12.2 10*3/uL 4.3-11.0 Blood erythrocytes automated count (number/volume) 4.13 10*6/uL 4.35-5.85 Venous blood hemoglobin measurement (mass/volume) 11.4 g/dL 13.3-17.7 Blood hematocrit (volume fraction) 36 % 40-54 Automated erythrocyte mean corpuscular volume 86 [ foz_us] 80-99 Automated erythrocyte mean corpuscular h emoglobin (mass per erythrocyte) 28 pg 25-34 Automated erythrocyte mean corpuscular h emoglobin concentration measurement (mass/volume) 32 g/dL 32-36 Automated erythrocyte distribution width ratio 15. 0 % 10.0- 14.5 Automated blood platelet count (count/volume) 202 10*3/uL 130-400 Automated blood platelet mean volume measurement 9.6 [foz_us] 7.4-10.4 Automated blood neutrophils/100 leukocytes 84 % 42-75 Automated blood lymphocytes/100 leukocytes 9 % 12-44 Blood monocytes/100 leukocytes 7 % 0-12 Automated blood eosinophils/100 leukocytes 0 % 0-10 Automated blood basophils/100 leukocytes 0 % 0-10 Blood neutrophils automated count (number/volume) 10.2 10*3 1.8-7.8 Blood lymphocytes automated count (number/volume) 1.1 10*3 1.0-4.0 Blood monocytes automated count (number/volume) 0. 9 10*3 0.0-1.0 Automated eosinophil count 0.0 10*3/uL 0 .0-0.3 Automated blood basophil count (count/volume) 0.0 10*3/uL 0.0-0.1 Comprehensive metabolic panel - 12/15/18 06:44 Serum or plasma sodium measurement (moles/volume) 137 mmol/L 135-145 Serum or plasma potassium measurement (moles/volume) 4.2 mmol/L 3.6-5.0 Serum or plasma chloride measurement (moles/volume) 104 mmol/L 98-107 Carbon dioxide 21 mmol/L 21-32 Serum or plasma anion gap determination (moles/volume) 12 mmol/L 5-14 Serum or plasma urea nitrogen measurement (mass/volume ) 16 mg/dL 7-18 Serum or plasma creatinine measurement (mass/volume) 0.92 mg/dL 0.60-1.30 Serum or plasma urea nitrogen/creatinine mass ratio 17 NRG Serum or plasma creatinine measurement w ith calculation of estimated glomerular filtration rate > NRG Serum or plasma glucose measurement (mass/volume) 134 mg/dL 70-105 Serum or plasma calcium measurement (mass/volume) 9.4 mg/dL 8.5-10.1 Serum or plasma total bilirubin measurement (mass/volu me) 0.2 mg/dL 0.1-1.0 Serum or plasma alkaline phosphatase caitie surement (enzymatic activity/volume) 80 U/L 40-136 Serum or plasma aspartate aminotransfera se measurement (enzymatic activity/volume) 18 U/L 5-34 Serum or plasma alanine aminotransferase measurement (enzymatic activity/volume) 19 U/L 0-55 Serum or plasma protein measurement (mass/volume) 6.2 g/dL 6.4-8.2 Serum or plasma albumin measurement (mass/volume) 3.7 g/dL 3.2-4.5 CALCIUM CORRECTED 9.6 mg/dL 8.5-10.1 Comprehensive metabolic panel - 12/16/18 06:41 Serum or plasma sodium measurement (moles/volume) 138 mmol/L 135-145 Serum or plasma potassium measurement (moles/volume) 4.0 mmol/L 3.6-5.0 Serum or plasma chloride measurement (moles/volume) 106 mmol/L 98-107 Carbon dioxide 23 mmol/L 21-32 Serum or plasma anion gap determination (moles/volume) 9 mmol/L 5-14 Serum or plasma urea nitrogen measurement (mass/volume ) 16 mg/dL 7-18 Serum or plasma creatinine measurement (mass/volume) 0.86 mg/dL 0.60-1.30 Serum or plasma urea nitrogen/creatinine mass ratio 19 NRG Serum or plasma creatinine measurement w ith calculation of estimated glomerular filtration rate > NRG Serum or plasma glucose measurement (mass/volume) 113 mg/dL 70-105 Serum or plasma calcium measurement (mass/volume) 8.6 mg/dL 8.5-10.1 Serum or plasma total bilirubin measurement (mass/volu me) 0.1 mg/dL 0.1-1.0 Serum or plasma alkaline phosphatase caitie surement (enzymatic activity/volume) 68 U/L 40-136 Serum or plasma aspartate aminotransfera se measurement (enzymatic activity/volume) 17 U/L 5-34 Serum or plasma alanine aminotransferase measurement (enzymatic activity/volume) 17 U/L 0-55 Serum or plasma protein measurement (mass/volume) 5.7 g/dL 6.4-8.2 Serum or plasma albumin measurement (mass/volume) 3.4 g/dL 3.2-4.5 CALCIUM CORRECTED 9.1 mg/dL 8.5-10.1 Coronavirus SARS-CoV-2 SO 2018 - 0 08:00 Coronavirus Ab [Units/volume] in Serum Negative Negative Encounters ACCT No. Visit Date/Time Discharge Status Pt. Type Provider Facility Loc./Unit Complaint [id number] 12/04/2019 05:40:00 020 15:08:00 DIS Outpatient SAY WALSH MD Via [facility] PREOP RIGHT ROTATOR CUFF TEA R [id number] 12/14/2018 05:45:00 019 14:21:00 DIS Inpatient SAY WALSH MD Via [facility] 4TH OSTEOARTHRITIS RIGHT KN EE [id number] 12/02/2018 11:26:00 019 13:00:00 DIS Outpatient SAY WALSH MD Via [facility] PREOP OSTEOARTHRITIS RIGHT K NEE [id number] 09/14/2018 06:05:00 019 11:10:00 DIS Inpatient SAY WALSH MD Via [facility] 4TH LEFT KNEE OSTEOARTHRITI S [id number] 09/07/2018 10:04:00 019 11:30:00 DIS Outpatient SAY WALSH MD [facility] PREOP LEFT KNEE OSTEOARTHRIT IS [id number] 12/06/2019 11:15:00 P EN Preadmit SAY WALSH MD [facility] RIGHT ROTATOR CUFF TEAR
[2019-12-06] MEDS ORDERED: BUPIVACAINE 0.25% 30 ML (SENSORCAINE) VIAL ONE (10:36)
[2019-12-06] MEDS ORDERED: morphine PF (DURAMORPH) 10 MG/10 ML AMP ONE (10:37)
[2019-12-06] MEDS ORDERED: morphine INJ 10 MG/ML 1ML (SYR OR VIAL) ONE (10:37)
[2019-12-06] MEDS ORDERED: MIDAZOLAM 2 MG/2 ML (VERSED) VIAL ONE (11:07)
[2019-12-06] MEDS ORDERED: fentaNYL INJECTION 100 MCG/2 ML AMP ONE (11:07)
[2019-12-06] MEDS ORDERED: LIDOCAINE PF 2% 5 ML (XYLOCAINE) VIAL ONE (11:44)
[2019-12-06] MEDS ORDERED: DEXAMETHASONE 10 MG/ML (DECADRON) 1 ML VIAL ONE (11:44)
[2019-12-06] MEDS ORDERED: SEVOFLURANE (ULTANE) 15 ML INHAL SOLN ONE ×3 (11:44→12:16)
[2019-12-06] MEDS ORDERED: proPOfol 200 MG/20 ML (DIPRIVAN) VIAL IV ONE (11:44)
[2019-12-06] MEDS ORDERED: ONDANSETRON 4 MG/2 ML (SDV) Z0FRAN ONE (11:44)
[2019-12-06] MEDS ORDERED: GLYCOPYRROLATE 0.2 MG/ML (ROBINUL) 2 ML VIAL ONE (11:45)
[2019-12-06] MEDS ORDERED: NEOSTIGMINE 3 MG/3 ML VIAL ONE (11:45)
[2019-12-06] MEDS ORDERED: ROCURONIUM 10 MG/ML 5 ML SYRINGE IV ONE (11:45)
[2019-12-06] MEDS ORDERED: OXYC-471 PO (13:26)
--- NOTE | 2019-12-06 13:40 | OPERATIVE REPORT ---
DATE OF SERVICE: 12/06/2019 PREOPERATIVE DIAGNOSIS: Right rotator cuff tear. POSTOPERATIVE DIAGNOSIS: Right rotator cuff tear. PROCEDURES PERFORMED: 1. Right shoulder with open rotator cuff repair. 2. Right shoulder arthroscopic acromioplasty. SURGEON: Kalin Walsh MD. PIPE STRIPPER: Ritesh Arshad, who assisted throughout the procedure and closed the incisions. ANESTHESIA: General endotracheal by Irena Mora CRNA. ESTIMATED BLOOD LOSS: Minimal. DRAINS: None. COMPLICATIONS: None. POSTOPERATIVE PLAN: Routine protocol with four weeks of passive range of motion and 4 weeks of sling wear. STATEMENT OF MEDICAL NECESSITY: The patient is a 74-year-old right hand dominant gentleman, who fell at the first of the year and was found to have a large retracted rotator cuff tear. Unfortunately, due to covid epidemic, he was unable to have surgery. The patient was counseled that this may be an irreparable tear and due to functional impairment and failure to improve with conservative measures, the patient elected to proceed with surgical intervention. Examination under anesthesia revealed forward elevation of 170 degrees, external rotation of 90 degrees and internal rotation of 70 degrees. Arthroscopic findings demonstrated a full thickness retracted supraspinatus, infraspinatus and subscapularis tear. There was a grade III chondral loss over the central portion of the femoral head as well as central portion of the glenoid and adjacent 15 x 15 areas. The glenoid labrum demonstrated degenerative tearing, but no instability. Subacromial space demonstrated dense bursitis with slope in the anterolateral acromion. DESCRIPTION OF PROCEDURE: After risks and benefits of the procedure were discussed and questions were answered, an informed consent was signed and placed on chart and the operative site was confirmed and prepped in normal initialed by the surgeon. The patient was then transferred to the operating room and after adequate levels of general endotracheal anesthetic were obtained, a timeout was called, confirming the operative site. The right upper extremity was prepped and draped in the usual sterile fashion. The shoulder joint was injected with 20 mL of fluid as was the subacromial space. Standard posterior portal was placed. A diagnostic arthroscopy was carried out with the above findings noted. Scope was then redirected into the subacromial space and a lateral portal was created. Bursectomy was performed and the acromion was planed to a flat type 1 acromion. The lateral portal was then extended. The deltoid was split in line with its fibers leaving attached to the acromion. The anterior aspect of the tear involving subscapularis could be brought superiorly and a single corkscrew anchor was placed and a modified Deniz-Landen repair was performed. The posterior leaf could not be mobilized. The wound was copiously irrigated. The deltoid was repaired in a rusa-[id number] fashion using #2 FiberWire in udebcm-fs-braxp interrupted fashion. The wound was further irrigated, 2-0 Vicryl was used for the subcutaneous tissue and the skin was closed with 4-0 nylon running alternating horizontal mattress fashion. Shoulder joint was injected with Duramorph. The portal sites were infiltrated with plain Marcaine. A soft dressing and sling were applied and the patient was transferred to the recovery room awake and in stable condition. Job ID: [id number] DocumentID: [id number] Dictated Date: 12/06/2019 12:07:09 Manager Internal Date: 12/06/2019 13:39:52 Dictated By: KALIN WALSH MD
--- NOTE | 2019-12-06 14:13 | Anesthesia-General Post-Op ---
General Patient Condition Mental Status/LOC: Same as Preop Cardiovascular: Satisfactory Nausea/Vomiting: Absent Respiratory: Satisfactory Pain: Controlled Complications: Absent Post Op Complications Complications None Follow Up Care/Instructions Patient Instructions None needed. Anesthesia/Patient Condition Patient Condition Patient is doing well, no complaints, stable vital signs, no apparent adverse anesthesia problems. No complications reported per nursing. JIMENEZ JIMENES CRNA Dec 06, 2019 14:13
== END 2019-12-06 14:10 | disposition home or self-care (01) ==
LOC: SDC 09:15
PROVIDERS: ATTEND Orthopaedic Surgery
DX: S46.011A Strain of muscle(s) and tendon(s) of the rotator cuff of right shoulder, initial encounter (principal); Z11.2 Encounter for screening for other bacterial diseases; W19.XXXA Unspecified fall, initial encounter; I87.2 Venous insufficiency (chronic) (peripheral); M19.90 Unspecified osteoarthritis, unspecified site; E88.01 Alpha-1-antitrypsin deficiency; G47.33 Obstructive sleep apnea (adult) (pediatric); E66.9 Obesity, unspecified; J45.909 Unspecified asthma, uncomplicated; E03.9 Hypothyroidism, unspecified; K21.9 Gastro-esophageal reflux disease without esophagitis; Z96.653 Presence of artificial knee joint, bilateral; Z95.5 Presence of coronary angioplasty implant and graft; Z79.890 Hormone replacement therapy; Z79.899 Other long term (current) drug therapy; Z88.8 Allergy status to other drugs, medicaments and biological substances; Z68.42 Body mass index [BMI] 45.0-49.9, adult; I10 Essential (primary) hypertension; Z87.891 Personal history of nicotine dependence; Z91.19 Patient's noncompliance with other medical treatment and regimen; F32.9 Major depressive disorder, single episode, unspecified
CPT/HCPCS: 23410; 29822; 29826; 87081; C1713